=== PATIENT | male | born 1955 | race Caucasian/White ===

== ENCOUNTER 2016-08-08 17:43 | Inpatient (IN) | payer OTHER ==
[~2016-08-08] VITALS: Ht 167.6 cm; Wt 80.0 kg
[~2016-08-08 17:43] MED LIST: ALLO300T PO; ASPI81TA2 PO; CLOP75TA PO; CRESTOR40 MG PO; DICL75TA PO; ESCI10TA PO; EZET10TA3 PO; ISOS30TA4 PO; ISOS60TA PO; KRIL1CAP5 PO; METO25TA4 PO; NITR0.4T6 SL; ONDA-36 PO; PRED50TA PO; RANI150T6 PO; RANI300C PO; UBID200C4 PO
[2016-08-08] MEDS: IV NORMAL SALINE 1000ML BAG 1,000 ML IV SCH ×3 (18:29→21:47)
[2016-08-08] MEDS ORDERED: 0.9 % SODIUM CHLORIDE 10 ML DISP.SYRIN. IV PRN (18:30)
[2016-08-08] MEDS ORDERED: PIPERACILLIN/TAZOBACTAM 3.375 GM in IV NORMAL SALINE 50ML 50 ML IV ONE (18:30)
[2016-08-08] MEDS ORDERED: VANCOMYCIN PER PHARMACY MC PRN (18:30)
[2016-08-08] MEDS ORDERED: VANCOMYCIN 2 GM in IV NORMAL SALINE 500ML BAG 500 ML IV ONE (18:30)
[2016-08-08 18:39] LABS: BASO % 0 % (0-3); EOS % 1 % (0-3); HEMATOCRIT 31.7 % (39.0-53.0); HEMOGLOBIN 10.7 g/dL (13.0-17.5); LYMPH % 11 % (24-48); MEAN CORPUSCULAR HEMOGLOBIN 30 pg (25-35); MEAN CORPUSCULAR HGB CONC 34 g/dL (31-37); MEAN CORPUSCULAR VOLUME 88 fL (79-100); MONO % 59 % (0-9); NEUT % 29 % (31-73); PLATELET COUNT 57 x10^3/uL (140-400); RED BLOOD COUNT 3.59 x10^6/uL (4.30-5.70); RED CELL DISTRIBUTION WIDTH 16.6 % (11.5-14.5)
[2016-08-08 18:46] LABS: WHITE BLOOD COUNT 0.4 x10^3/uL (4.0-11.0)
[2016-08-08 18:51] LABS: CALCIUM 8.5 mg/dL (8.5-10.1); CREATININE 1.2 mg/dL (0.7-1.3); GFR 61.3; POTASSIUM 3.6 mmol/L (3.5-5.1)
[2016-08-08 18:57] LABS: ALBUMIN 2.9 g/dL (3.4-5.0); DIRECT BILIRUBIN 0.3 mg/dL (0.0-0.2); TOTAL BILIRUBIN 0.9 mg/dL (0.2-1.0); TOTAL PROTEIN 6.2 g/dL (6.4-8.2)
--- NOTE | 2016-08-08 19:13 | RAD ---
PROCEDURE CT head without intravenous contrast. HISTORY Weakness emphysema. Fell today with abrasion. TECHNIQUE Axial images are obtained of the head from the skull base through the vertex without IV contrast Exposure: One or more of the following individualized dose reduction techniques were utilized for this examination: 1. Automated exposure control. 2. Adjustment of the mA and/or kV according to patient size. 3. Use of iterative reconstruction technique. COMPARISON CT head May 21, 2016. FINDINGS The ventricles are appropriate in size, shape, and location for the patient's age.No obvious intracranial mass, mass-effect, midline shift, hemorrhage or obvious acute infarction is identified.Basilar cisterns are patent. Bone windows demonstrate no acute calvarial abnormality.There is opacification of several right anterior ethmoid air cells. IMPRESSION 1. No acute intracranial process. Please note that CT can be relatively insensitive to acute ischemic infarction for up to 24 hours after symptom onset. 2. Right ethmoid mucosal disease. Electronically signed by: Dawit Evans MD (Aug 08, 2016 19:12:07)
[2016-08-08] MEDS ORDERED: MORPHINE SULFATE 2 MG/ML DISP.SYRIN. IV PRN (19:15)
[2016-08-08] MEDS ORDERED: ASPIRIN 81 MG TAB.CHEW PO ONE (19:15)
[2016-08-08] MEDS ORDERED: ONDANSETRON PF 4 MG/2 ML VIAL. IV PRN (19:15)
[2016-08-08 20:00] VITALS: BP 122/61
[2016-08-08 20:02] LABS: BILIRUBIN,URINE NEGATIVE (NEG); GLUCOSE,URINE NEGATIVE (NEG); NITRITE,URINE NEGATIVE (NEG); PROTEIN,URINE 100 mg/dL (NEG-TRACE); UROBILINOGEN,URINE 0.2 mg/dL (0.2 mg/dL)
[2016-08-08 20:13] LABS: BACTERIA,URINE FEW /HPF (0-FEW); RBC,URINE OCC /HPF (0-2); WBC,URINE OCC /HPF (0-4)
[2016-08-08 20:50] LABS: % BASOS 1 % (0-3); % EOS 2 % (0-5); PLT ESTIMATE DECREASED (ADEQUATE)
[2016-08-08 20:51] LABS: TOXIC GRANULATION SLIGHT
--- NOTE | 2016-08-08 21:19 | PHYS DOC ---
Past Medical History Past Medical History: CAD, Hypertension, Immunosuppression, Other Additional Past Medical Histor: lymphoma Past Surgical History: Other Additional Past Surgical Histo: left rotater cuff, port right chest for chemo Alcohol Use: Occasionally Drug Use: None Adult General Chief Complaint Chief Complaint: WEAKNESS/GENERALIZED HPI HPI 60-year-old male presenting to the emergency department today with nausea vomiting and generalized weakness with a fever after having chemotherapy approximately 7 days ago. He has mild intermittent abdominal pain that comes and goes. His symptoms started approximately 24 hours ago. His pain is nonradiating without alleviating or exacerbating factors. He denies diarrhea or constipation. Review of Systems Review of Systems Negative for chest pain shortness of breath cough. Negative for polyuria dysuria. He denies any redness or warmth to his Port-A-Cath. All other review of systems is negative unless otherwise noted in history of present illness. Current Medications Current Medications Current Medications Medications (Trade) Dose Ordered Sig/Gloria Start Time Stop Time Status Last Admin Dose Admin Piperacillin Sod/ Tazobactam Sod/ Sodium Chloride (Zosyn/Iv Sodium Chloride 0.9% 50ml) 50 ml @ 100 mls/hr 1X ONCE 08/08/16 18:30 08/08/16 18:59 DC 08/08/16 18:40 100 MLS/HR Sodium Chloride 1,000 ml @ 562.5 mls/ hr Q1H47M 08/08/16 18:30 08/08/16 22:30 08/08/16 18:29 562.5 MLS/HR Sodium Chloride 10 ml 10 ml QSHIFT PRN 08/08/16 18:30 Vancomycin HCl 1 each 1 each PRN DAILY PRN 08/08/16 18:30 08/08/16 19:40 1 EACH Vancomycin HCl/ Sodium Chloride (Iv Sodium Chloride 0.9% 500ml Bag) 500 ml @ 250 mls/hr 1X ONCE 08/08/16 18:30 08/08/16 20:29 DC 08/08/16 19:19 250 MLS/HR Allergies Allergies Allergies Coded Allergies Type Severity Reaction Last Updated Verified No Known Drug Allergies 04/28/16 No Physical Exam Physical Exam Constitutional: Well developed, well nourished, no acute distress. Patient is tachycardic and is generally warm to touch HENT: Normocephalic, atraumatic, bilateral external ears normal, oropharynx moist, no oral exudates, nose normal. [] Eyes: PERRLA, EOMI, conjunctiva normal, no discharge. Neck: Normal range of motion, no tenderness, supple, no stridor. [] Cardiovascular:Heart rate regular rhythm, no murmur . No evidence of infection of the patient's port. Lungs & Thorax: Bilateral breath sounds clear to auscultation Abdomen: Soft nontender abdomen without rebound tenderness or guarding present. Negative McBurneys point. Negative Henry sign. No ecchymosis present. Skin: Warm, dry, no erythema, no rash. Back: No tenderness, no CVA tenderness. Extremities: No tenderness, no cyanosis, no clubbing, ROM intact, no edema. [] Neurologic: Alert and oriented X 3, normal motor function, normal sensory function, no focal deficits noted. Psychologic: Affect normal, judgement normal, mood normal. [] Current Patient Data Vital Signs Vital Signs Date Time Temp Pulse Resp B/P Pulse Ox O2 Delivery O2 Flow Rate FiO2 08/08/16 18:14 100.9 114 14 108/67 90 Room Air 100.9 Lab Values Laboratory Tests Test 08/08/16 18:20 White Blood Count 0.4x10^3/uL (4.0-11.0) *L Red Blood Count 3.59x10^6/uL (4.30-5.70) L Hemoglobin 10.7g/dL (13.0-17.5) L Hematocrit 31.7% (39.0-53.0) L Mean Corpuscular Volume 88fL (79-100) Mean Corpuscular Hemoglobin 30pg (25-35) Mean Corpuscular Hemoglobin Concent 34g/dL (31-37) Red Cell Distribution Width 16.6% (11.5-14.5) H Platelet Count 57x10^3/uL (140-400) L Neutrophils (%) (Auto) 29% (31-73) L Lymphocytes (%) (Auto) 11% (24-48) L Monocytes (%) (Auto) 59% (0-9) H Eosinophils (%) (Auto) 1% (0-3) Basophils (%) (Auto) 0% (0-3) Neutrophils # (Auto) 0.1x10^3uL (1.8-7.7) L Lymphocytes # (Auto) 0.0x10^3/uL (1.0-4.8) L Monocytes # (Auto) 0.2x10^3/uL (0.0-1.1) Eosinophils # (Auto) 0.0x10^3/uL (0.0-0.7) Basophils # (Auto) 0.0x10^3/uL (0.0-0.2) Segmented Neutrophils % 13% (35-66) L Band Neutrophils % 20% (0-9) H Lymphocytes % 13% (24-48) L Monocytes % 51% (0-10) H Eosinophils % 2% (0-5) Basophils % 1% (0-3) Toxic Granulation Slight Dohle Bodies Few Platelet Estimate Decreased (ADEQUATE) Sodium Level 135mmol/L (136-145) L Potassium Level 3.6mmol/L (3.5-5.1) Chloride Level 98mmol/L (98-107) Carbon Dioxide Level 27mmol/L (21-32) Anion Gap 10 (6-14) Blood Urea Nitrogen 13mg/dL (8-26) Creatinine 1.2mg/dL (0.7-1.3) Estimated GFR (Cockcroft-Gault) 61.3 Glucose Level 128mg/dL (70-99) H Lactic Acid Level 1.1mmol/L (0.4-2.0) Calcium Level 8.5mg/dL (8.5-10.1) Total Bilirubin 0.9mg/dL (0.2-1.0) Direct Bilirubin 0.3mg/dL (0.0-0.2) H Aspartate Amino Transferase (AST) 17U/L (15-37) Alanine Aminotransferase (ALT) 32U/L (16-63) Alkaline Phosphatase 39U/L (46-116) L Troponin I Quantitative 0.061ng/mL (0.000-0.055) VJ-Suc-Q-Type Natriuretic Peptide 259pg/mL (0-124) H Total Protein 6.2g/dL (6.4-8.2) L Albumin 2.9g/dL (3.4-5.0) L Lipase 46U/L (73-393) L Laboratory Tests 08/08/16 18:20 Laboratory Tests 08/08/16 18:20 EKG EKG EKG shows sinus rhythm with tachycardia. [place] is leftward. Intervals are within normal limits. ST segments congruent [] Radiology/Procedures Radiology/Procedures CT head negative for acute intracranial bleed. Chest x-ray shows no acute infiltrate. No pneumothorax. Port-A-Cath noted. Cardiomegaly present. [] Course & Med Decision Making Course & Med Decision Making Pertinent Labs and Imaging studies reviewed. (See chart for details) 60-year-old male presenting to our emergency department after receiving chemotherapy and subsequently developing a fever with nausea vomiting and weakness. Vital signs showed fever with tachycardia SPO2 was mildly low at 90. Blood pressure 108 systolic. On physical exam the patient was warm to touch generally. No localizing sign of infection on physical exam. IV access obtained and IV fluids administered along with broad-spectrum antibiotics after blood cultures obtained. Sepsis protocol initiated initially. CBC showed neutropenia with a mild anemia at 10. Urinalysis negative for infection. Chemistry panel showed elevated bilirubin likely secondary to sepsis with a mildly elevated proBNP and troponin just above the reference range of normal. The patient was given an aspirin. Initial lactate was within normal limits. EKG and chest x-ray unremarkable. The patient was then admitted to our hospital for treatment of neutropenic fever, heme oncology consultation, and cardiology consulted for elevation in troponin. Dragon Disclaimer Dragon Disclaimer This electronic medical record was generated, in whole or in part, using a voice recognition dictation system. Departure Departure Impression: Primary Impression: Neutropenia associated with infection Additional Impressions: Sepsis Severe sepsis Elevated troponin Disposition: ADMITTED INPATIENT Admitting Physician: Other (sulaiman) Condition: IMPROVED Referrals: EMPERATRIZ DE DIOS MD (PCP) Problem Qualifiers LENNY BLOOM MD Aug 08, 2016 21:18
[2016-08-08 23:00] VITALS: BP 104/65
[2016-08-09 02:52] VITALS: BP 94/58
[2016-08-09 06:33] LABS: BASO % 1 % (0-3); EOS % 3 % (0-3); HEMATOCRIT 29.5 % (39.0-53.0); HEMOGLOBIN 9.9 g/dL (13.0-17.5); LYMPH # 0.1 x10^3/uL (1.0-4.8); LYMPH % 12 % (24-48); MEAN CORPUSCULAR HEMOGLOBIN 30 pg (25-35); MEAN CORPUSCULAR HGB CONC 34 g/dL (31-37); MEAN CORPUSCULAR VOLUME 89 fL (79-100); MONO % 26 % (0-9); NEUT % 59 % (31-73); PLATELET COUNT 50 x10^3/uL (140-400); RED CELL DISTRIBUTION WIDTH 16.5 % (11.5-14.5)
[2016-08-09 06:37] LABS: GFR 75.7
[2016-08-09 06:44] LABS: WHITE BLOOD COUNT 0.7 x10^3/uL (4.0-11.0)
[2016-08-09 07:00] VITALS: BP 86/49
[2016-08-09] MEDS ORDERED: VANCOMYCIN 1.25 GM in IV NORMAL SALINE 250ML 250 ML IV SCH (08:00)
--- NOTE | 2016-08-09 08:09 | RAD ---
Indication: Short of breath. Fatigue. Technique: Upright portable chest radiograph was obtained. Comparison is from May 14, 2016. Findings: The lungs are clear. The heart is not enlarged. There is no obvious heart failure. Port is noted. Leads overlie the patient. There are degenerative changes in the shoulders. Impression: No acute thoracic findings.
[2016-08-09] MEDS ORDERED: NITROGLYCERIN SUBLINGUAL 0.4 MG BOTTLE OF 25. SL PRN (08:15)
--- NOTE | 2016-08-09 09:28 | PDOC1 ---
History and Physical Date of Admission Date of Admission DATE: 08/08/16 Identification/Chief Complaint Chief Complaint Weakness Source Source: Patient History of Present Illness History of Present Illness Pt says that he had extreme weakness starting this past that did not improve, so decided to come to the ER last night. Pt recently received chemotherapy last . Over the past couple of days he developed fevers and chills. He is having lower abdominal pain and soft stools that are difficult to control. He is concerned about Cdiff as he has had this in the past, and after his last round of chemotherapy was prophylactically treated for it. Past Medical History Cardiovascular: CAD, HTN, PA, Hyperlipidemia Pulmonary: Other GI: Constipation Heme/Onc: Cancer (B cell Lymphoma) Hepatobiliary: No pertinent hx Psych: No pertinent hx Musculoskeletal: Osteoarthritis Rheumatologic: No pertinent hx Infectious disease: Other (C diff) Renal/: UTI Endocrine: No pertinent hx Dermatology: No pertinent hx Past Surgical History Past Surgical History: Arthroscopy, Other (Deviated Septum Repair, Lymph Node Bx, GI Bleed cauterized/clipped) Family History Family History: Cancer, Diabetes, Other (GI Bleed) Social History Smoke: Quit ALCOHOL: occassional Drugs: None Current Problem List Problem List Problems Medical Problems: (1) Elevated troponin Status: Acute (2) Neutropenia associated with infection Status: Acute (3) Sepsis Status: Acute (4) Severe sepsis Status: Acute Problems: Current Medications Current Medications Current Medications Sodium Chloride 10 ml 10 ml QSHIFT PRN IV AFTER MEDS AND BLOOD DRAWS; Start at 18:30 Sodium Chloride 1,000 ml @ 562.5 mls/ hr Q1H47M IV Last administered on at 21:47; Start 08/08/16 at 18:30; Stop 08/08/16 at 22:30; Status DC Piperacillin Sod/ Tazobactam Sod/ Sodium Chloride (Zosyn/Iv Sodium Chloride 0.9 % 50ml) 50 ml @ 100 mls/hr 1X ONCE IV Last administered on 08/08/16at 18:40; Start 08/08/16 at 18:30; Stop 08/08/16 at 18:59; Status DC Vancomycin HCl 1 each 1 each PRN DAILY PRN MC SEE COMMENTS Last administered on 08/08/16at 19:40; Start 08/08/16 at 18:30 Vancomycin HCl/ Sodium Chloride (Iv Sodium Chloride 0.9% 500ml Bag) 500 ml @ 250 mls/hr 1X ONCE IV Last administered on 08/08/16at 19:19; Start 08/08/16 at 18:30; Stop 08/08/16 at 20:29; Status DC Aspirin (Children'S Aspirin) 324 mg 1X ONCE PO Last administered on at 19:43; Start 08/08/16 at 19:15; Stop 08/08/16 at 19:16; Status DC Ondansetron HCl (Zofran) 4 mg PRN Q8HRS PRN IV NAUSEA/VOMITING; Start at 19:15; Stop 08/09/16 at 19:14 Morphine Sulfate 2 mg 2 mg PRN Q2HR PRN IV PAIN Last administered on at 21:29; Start 08/08/16 at 19:15; Stop 08/09/16 at 19:14 Vancomycin HCl/ Sodium Chloride (Iv Sodium Chloride 0.9% 250ml) 250 ml @ 167 mls/hr Q12H IV Last administered on 08/09/16at 08:36; Start 08/09/16 at 08:00 Vancomycin HCl 1 each 1X ONCE MC ; Start 08/10/16 at 07:30; Stop 08/10/16 at 07: 31 Tbo-Filgrastim (Granix) 480 mcg QHS SQ ; Start 08/09/16 at 21:00 Escitalopram Oxalate (Lexapro) 10 mg DAILY PO ; Start 08/09/16 at 09:00 EZETIMIBE (Zetia) 10 mg DAILY PO ; Start 08/09/16 at 09:00 Nitroglycerin (Nitrostat) 0.4 mg PRN Q5MIN PRN SL CHEST PAIN; Start 08/09/16 at 08:15 Atorvastatin Calcium (Lipitor) 20 mg QHS PO ; Start 08/09/16 at 21:00 Active Scripts Active Reported Metoprolol Tartrate 25 Mg Tablet 0.5 Tab PO DAILYBFRSUP Escitalopram Oxalate 10 Mg Tablet 1 Tab PO DAILY Ondansetron Hcl 8 Mg Tablet 8 Mg PO BID PRN Prednisone 50 Mg Tablet 1 Tab PO DAILY Zetia (Ezetimibe) 10 Mg Tablet NITROGLYCERIN SubLingual (Nitroglycerin) 0.4 Mg Tab.subl 0.4 Mg SL PRN Q5MIN PRN Aspirin 81 Mg Tab.chew 81 Mg PO DAILY Isosorbide Mononitrate Er (Isosorbide Mononitrate) 30 Mg Tab.er.24h 30 Mg PO DAILY Crestor (Rosuvastatin Calcium) 40 Mg Tablet 40 Mg PO Allergies Allergies: Coded Allergies: No Known Drug Allergies (Unverified , 04/28/16) ROS General: YES: Chills, Fatigue PSYCHOLOGICAL ROS: No: Anxiety, Depression Eyes: No Decreased vision, No Eye Pain HEENT: No: Nasal congestion, Sore Throat ALLERGY AND IMMUNOLOGY: No: Hives, Post Nasal Drip Hematological and Lymphatic: No: Bleeding Problems, Blood Clots Respiratory: No: Cough, Shortness of breath Cardiovascular: No Chest Pain, No Edema, No Palpitations Gastrointestinal: Yes Abdominal Pain, Yes Diarrhea, Yes Nausea, Yes Vomiting, No Constipation Genitourinary: No Dysuria, No Urgency Musculoskeletal: No Joint Pain, No Joint Swelling Neurological: Yes Weakness, No Impaired Coord/balance, No Numbness/Tingling Skin: No Rash, No Skin Lesion Changes Physical Exam General: Alert, Oriented X3, Cooperative, No acute distress, Other (warm to touch) HEENT: Atraumatic, PERRLA, EOMI, Mucous membr. moist/pink Lungs: Clear to auscultation, Normal air movement Heart: RRR, no rubs, no gallops, no murmurs Abdomen: Normal bowel sounds, Soft, Other (lower abdomen diffusely tender) Extremities: No clubbing, No cyanosis, No edema Skin: No rashes, No breakdown Neuro: Normal speech, Normal tone, Sensation intact, Cranial nerves 3-12 NL Psych/Mental Status: Mental status NL, Mood NL Vitals Vitals Vital Signs Date Time Temp Pulse Resp B/P Pulse Ox O2 Delivery O2 Flow Rate FiO2 08/09/16 07:00 101.3 70 18 86/49 93 Room Air 101.3 08/08/16 20:00 93.0 Labs Labs Laboratory Tests Test 08/08/16 18:20 08/08/16 19:58 08/08/16 20:00 08/09/16 06:00 White Blood Count 0.4x10^3/uL (4.0-11.0) 0.7x10^3/uL (4.0-11.0) Red Blood Count 3.59x10^6/uL (4.30-5.70) 3.30x10^6/uL (4.30-5.70) Hemoglobin 10.7g/dL (13.0-17.5) 9.9g/dL (13.0-17.5) Hematocrit 31.7% (39.0-53.0) 29.5% (39.0-53.0) Mean Corpuscular Volume 88fL (79-100) 89fL (79-100) Mean Corpuscular Hemoglobin 30pg (25-35) 30pg (25-35) Mean Corpuscular Hemoglobin Concent 34g/dL (31-37) 34g/dL (31-37) Red Cell Distribution Width 16.6% (11.5-14.5) 16.5% (11.5-14.5) Platelet Count 57x10^3/uL (140-400) 50x10^3/uL (140-400) Neutrophils (%) (Auto) 29% (31-73) 59% (31-73) Lymphocytes (%) (Auto) 11% (24-48) 12% (24-48) Monocytes (%) (Auto) 59% (0-9) 26% (0-9) Eosinophils (%) (Auto) 1% (0-3) 3% (0-3) Basophils (%) (Auto) 0% (0-3) 1% (0-3) Neutrophils # (Auto) 0.1x10^3uL (1.8-7.7) 0.4x10^3uL (1.8-7.7) Lymphocytes # (Auto) 0.0x10^3/uL (1.0-4.8) 0.1x10^3/uL (1.0-4.8) Monocytes # (Auto) 0.2x10^3/uL (0.0-1.1) 0.2x10^3/uL (0.0-1.1) Eosinophils # (Auto) 0.0x10^3/uL (0.0-0.7) 0.0x10^3/uL (0.0-0.7) Basophils # (Auto) 0.0x10^3/uL (0.0-0.2) 0.0x10^3/uL (0.0-0.2) Segmented Neutrophils % 13% (35-66) Band Neutrophils % 20% (0-9) Lymphocytes % 13% (24-48) Monocytes % 51% (0-10) Eosinophils % 2% (0-5) Basophils % 1% (0-3) Toxic Granulation Slight Dohle Bodies Few Platelet Estimate Decreased (ADEQUATE) Sodium Level 135mmol/L (136-145) 136mmol/L (136-145) Potassium Level 3.6mmol/L (3.5-5.1) 4.0mmol/L (3.5-5.1) Chloride Level 98mmol/L (98-107) 101mmol/L (98-107) Carbon Dioxide Level 27mmol/L (21-32) 27mmol/L (21-32) Anion Gap 10 (6-14) 8 (6-14) Blood Urea Nitrogen 13mg/dL (8-26) 8mg/dL (8-26) Creatinine 1.2mg/dL (0.7-1.3) 1.0mg/dL (0.7-1.3) Estimated GFR (Cockcroft-Gault) 61.3 75.7 Glucose Level 128mg/dL (70-99) 106mg/dL (70-99) Lactic Acid Level 1.1mmol/L (0.4-2.0) 0.9mmol/L (0.4-2.0) Calcium Level 8.5mg/dL (8.5-10.1) 8.0mg/dL (8.5-10.1) Total Bilirubin 0.9mg/dL (0.2-1.0) Direct Bilirubin 0.3mg/dL (0.0-0.2) Aspartate Amino Transf (AST/SGOT) 17U/L (15-37) Alanine Aminotransferase (ALT/SGPT) 32U/L (16-63) Alkaline Phosphatase 39U/L (46-116) Troponin I Quantitative 0.061ng/mL (0.000-0.055) 0.075ng/mL (0.000-0.055) MX-Mrw-E-Type Natriuretic Peptide 259pg/mL (0-124) Total Protein 6.2g/dL (6.4-8.2) Albumin 2.9g/dL (3.4-5.0) Lipase 46U/L (73-393) Urine Color Shanel Urine Clarity Turbid Urine pH 6.0 Urine Specific [place] 1.015 Urine Protein 100mg/dL (NEG-TRACE) Urine Glucose (UA) Negativemg/dL (NEG) Urine Ketones (Stick) 15mg/dL (NEG) Urine Blood Small (NEG) Urine Nitrite Negative (NEG) Urine Bilirubin Negative (NEG) Urine Urobilinogen Dipstick 0.2mg/dL (0.2 mg/dL) Urine Leukocyte Esterase Negative (NEG) Urine RBC Occ/HPF (0-2) Urine WBC Occ/HPF (0-4) Urine Squamous Epithelial Cells None/LPF Urine Bacteria Few/HPF (0-FEW) Urine Mucus Mod/LPF Test 08/09/16 06:45 Troponin I Quantitative 0.072ng/mL (0.000-0.055) Laboratory Tests Test 08/08/16 18:20 08/08/16 19:58 08/08/16 20:00 08/09/16 06:00 White Blood Count 0.4x10^3/uL (4.0-11.0) 0.7x10^3/uL (4.0-11.0) Red Blood Count 3.59x10^6/uL (4.30-5.70) 3.30x10^6/uL (4.30-5.70) Hemoglobin 10.7g/dL (13.0-17.5) 9.9g/dL (13.0-17.5) Hematocrit 31.7% (39.0-53.0) 29.5% (39.0-53.0) Mean Corpuscular Volume 88fL (79-100) 89fL (79-100) Mean Corpuscular Hemoglobin 30pg (25-35) 30pg (25-35) Mean Corpuscular Hemoglobin Concent 34g/dL (31-37) 34g/dL (31-37) Red Cell Distribution Width 16.6% (11.5-14.5) 16.5% (11.5-14.5) Platelet Count 57x10^3/uL (140-400) 50x10^3/uL (140-400) Neutrophils (%) (Auto) 29% (31-73) 59% (31-73) Lymphocytes (%) (Auto) 11% (24-48) 12% (24-48) Monocytes (%) (Auto) 59% (0-9) 26% (0-9) Eosinophils (%) (Auto) 1% (0-3) 3% (0-3) Basophils (%) (Auto) 0% (0-3) 1% (0-3) Neutrophils # (Auto) 0.1x10^3uL (1.8-7.7) 0.4x10^3uL (1.8-7.7) Lymphocytes # (Auto) 0.0x10^3/uL (1.0-4.8) 0.1x10^3/uL (1.0-4.8) Monocytes # (Auto) 0.2x10^3/uL (0.0-1.1) 0.2x10^3/uL (0.0-1.1) Eosinophils # (Auto) 0.0x10^3/uL (0.0-0.7) 0.0x10^3/uL (0.0-0.7) Basophils # (Auto) 0.0x10^3/uL (0.0-0.2) 0.0x10^3/uL (0.0-0.2) Segmented Neutrophils % 13% (35-66) Band Neutrophils % 20% (0-9) Lymphocytes % 13% (24-48) Monocytes % 51% (0-10) Eosinophils % 2% (0-5) Basophils % 1% (0-3) Toxic Granulation Slight Dohle Bodies Few Platelet Estimate Decreased (ADEQUATE) Sodium Level 135mmol/L (136-145) 136mmol/L (136-145) Potassium Level 3.6mmol/L (3.5-5.1) 4.0mmol/L (3.5-5.1) Chloride Level 98mmol/L (98-107) 101mmol/L (98-107) Carbon Dioxide Level 27mmol/L (21-32) 27mmol/L (21-32) Anion Gap 10 (6-14) 8 (6-14) Blood Urea Nitrogen 13mg/dL (8-26) 8mg/dL (8-26) Creatinine 1.2mg/dL (0.7-1.3) 1.0mg/dL (0.7-1.3) Estimated GFR (Cockcroft-Gault) 61.3 75.7 Glucose Level 128mg/dL (70-99) 106mg/dL (70-99) Lactic Acid Level 1.1mmol/L (0.4-2.0) 0.9mmol/L (0.4-2.0) Calcium Level 8.5mg/dL (8.5-10.1) 8.0mg/dL (8.5-10.1) Total Bilirubin 0.9mg/dL (0.2-1.0) Direct Bilirubin 0.3mg/dL (0.0-0.2) Aspartate Amino Transf (AST/SGOT) 17U/L (15-37) Alanine Aminotransferase (ALT/SGPT) 32U/L (16-63) Alkaline Phosphatase 39U/L (46-116) Troponin I Quantitative 0.061ng/mL (0.000-0.055) 0.075ng/mL (0.000-0.055) HF-Mis-D-Type Natriuretic Peptide 259pg/mL (0-124) Total Protein 6.2g/dL (6.4-8.2) Albumin 2.9g/dL (3.4-5.0) Lipase 46U/L (73-393) Urine Color Shaenl Urine Clarity Turbid Urine pH 6.0 Urine Specific [place] 1.015 Urine Protein 100mg/dL (NEG-TRACE) Urine Glucose (UA) Negativemg/dL (NEG) Urine Ketones (Stick) 15mg/dL (NEG) Urine Blood Small (NEG) Urine Nitrite Negative (NEG) Urine Bilirubin Negative (NEG) Urine Urobilinogen Dipstick 0.2mg/dL (0.2 mg/dL) Urine Leukocyte Esterase Negative (NEG) Urine RBC Occ/HPF (0-2) Urine WBC Occ/HPF (0-4) Urine Squamous Epithelial Cells None/LPF Urine Bacteria Few/HPF (0-FEW) Urine Mucus Mod/LPF Test 08/09/16 06:45 Troponin I Quantitative 0.072ng/mL (0.000-0.055) VTE Prophylaxis Ordered VTE Prophylaxis Devices: Yes VTE Pharmacological Prophylaxi: No Assessment/Plan Assessment/Plan Pt is a 60yo CM admitted for sepsis and neutropenic fever 1)Sepsis- pt's blood pressure currently stable after receiving IVF hydration. Will continue to monitor and have low threshold to send to ICU if needed. Pt has neutropenic fever and was given Vancomycin and Zosyn in the ER. CXR WNL. Pt's U/A equivocal, urine culture pending. Blood cultures pending. Pt having symptoms of possible C-diff, stool studies pending. Will continue pt's Zosyn and start Metronidazole. Will broaden antibiotics if needed. 2)Neutropenic Fever- see above. Heme/Onc consulted this morning 3)Hx CAD- Initial tropinin elevated, trending downward. Holding Imdur 2/2 hypotension. CTM 4)HTN- pt currently hypotensive. Holding Imdur and Metoprolol 5)Pancytopenia- 2/2 recent chemotherapy. CTM. No active bleeding or oozing. Pt started on Granix 6)Depression- pt continued on Escitalopram 10mg 7)HLD- pt transitioned to Atorvastatin during hospitalization, normally on Rosuvastatin 40mg TOLU SHEIKH MD Aug 09, 2016 09:28
--- NOTE | 2016-08-09 09:46 | EKG ---
[facility] [address] [place] [address] Test Date: 2016-08-09 Test Time: 09:38:48 Pat Name: BELKIS MCCLENDON Department: Room: 2 Gender: M Steel Cutter: : 1955 Requested By: NAVEEN AKHTAR Order Number: [id number] Reading MD: Measurements Intervals [place] Rate: 91 P: 52 VT: 102 QRS: -4 QRSD: 76 T: 0 QT: 352 QTc: 435 Interpretive Statements SINUS RHYTHM LEFTWARD AXIS QRS(T) CONTOUR ABNORMALITY CONSISTENT WITH INFERIOR INFARCT PROBABLY OLD ABNORMAL ECG RI6.01 Compared to ECG 05/21/2016 03:55:49 No significant changes
[2016-08-09] MEDS ORDERED: PIPERACILLIN/TAZOBACTAM 3.375 GM in IV NORMAL SALINE 50ML 50 ML IV SCH (10:00)
[2016-08-09] MEDS ORDERED: METRONIDAZOLE 500 MG TABLET. PO SCH (10:00)
[2016-08-09] MEDS: ESCITALOPRAM 10 MG TABLET. PO SCH (10:05)
[2016-08-09] MEDS: EZETIMIBE 10 MG TABLET PO SCH (10:05)
[2016-08-09] MEDS ORDERED: PIP/TAZO PER PHARMACY MC PRN (10:15)
--- NOTE | 2016-08-09 10:24 | PDOC ---
Provider Note Provider Note Onc consult dictated- [id number] DLBCL s/p C4 RCHOP 07/31- PEt 07/15 with impressive response to tx so far Neutropenic fevers- Continue zosyn, granix until ANC rising and near 1.5 Loose stool- Checking C diff Thank you. FRANCO SHEIKH DO Aug 09, 2016 10:24
--- NOTE | 2016-08-09 10:37 | EKG ---
[facility] [address] [place] [address] Test Date: 2016-08-08 Test Time: 18:42:38 Pat Name: BELKIS MCCLENDON Department: Room: Gender: M Provider Relations Specialist: : 1955 Requested By: LENNY BLOOM Order Number: [id number] Reading MD: Measurements Intervals [facility] Rate: 104 P: -42 [place]: 92 QRS: -5 QRSD: 78 T: 35 QT: 310 QTc: 413 Interpretive Statements SINUS TACHYCARDIA LEFTWARD AXIS QRS(T) CONTOUR ABNORMALITY CONSISTENT WITH INFERIOR INFARCT PROBABLY OLD ABNORMAL ECG RI6.01 No previous ECG available for comparison
[2016-08-09 10:41] VITALS: BP 108/66
[2016-08-09] MEDS: PIPERACILLIN/TAZOBACTAM 3.375 GM in IV NORMAL SALINE 50ML 50 ML IV SCH ×3 (11:26→23:52)
[2016-08-09] MEDS: HYDROCODONE/APAP 5/325MG TABLET. PO PRN ×3 (11:33→23:52)
--- NOTE | 2016-08-09 13:01 | PDOC2 ---
CONSULT Date of Consult Date of Consult DATE: 08/09/16 TIME: 12:54 Reason for Consult Reason for Consult: elevated troponin, history of CAD Referring Physician Referring Physician: Dr. Stahl Identification/Chief Complaint Chief Complaint Weakness, nausea Source Source: Patient History of Present Illness Reason for Visit: The patient is a pleasant 60-year-old male who was admitted for progressive weakness, nausea and vomiting. The patient is treated with chemotherapy for an HL and his last treatment was on . He's been started on antibiotics and states she is feeling somewhat better this morning. From a cardiac viewpoint he has a history of coronary artery disease. His troponin is minimally elevated at 0.075. His EKG shows no ischemic changes. He denies chest pain or shortness of breath. Past Medical History Cardiovascular: CAD, HTN, [place], Hyperlipidemia Pulmonary: Other GI: Constipation Heme/Onc: Cancer (B cell Lymphoma) Hepatobiliary: No pertinent hx Psych: No pertinent hx Musculoskeletal: Osteoarthritis Rheumatologic: No pertinent hx Infectious disease: Other (C diff) Renal/: UTI Endocrine: No pertinent hx Dermatology: No pertinent hx Past Surgical History Past Surgical History: Arthroscopy, Other (Port-A-Cath for chemotherapy.) Family History Family History: Cancer, Diabetes, Other (GI Bleed) Social History Quit ALCOHOL: occassional Drugs: None Lives: with Family Current Problem List Problem List Problems Medical Problems: (1) Elevated troponin Status: Acute (2) Neutropenia associated with infection Status: Acute (3) Sepsis Status: Acute (4) Severe sepsis Status: Acute Current Medications Current Medications Current Medications Sodium Chloride 10 ml 10 ml QSHIFT PRN IV AFTER MEDS AND BLOOD DRAWS; Start at 18:30 Sodium Chloride 1,000 ml @ 562.5 mls/ hr Q1H47M IV Last administered on at 21:47; Start 08/08/16 at 18:30; Stop 08/08/16 at 22:30; Status DC Piperacillin Sod/ Tazobactam Sod/ Sodium Chloride (Zosyn/Iv Sodium Chloride 0.9 % 50ml) 50 ml @ 100 mls/hr 1X ONCE IV Last administered on 08/08/16at 18:40; Start 08/08/16 at 18:30; Stop 08/08/16 at 18:59; Status DC Vancomycin HCl 1 each 1 each PRN DAILY PRN MC SEE COMMENTS Last administered on 08/08/16at 19:40; Start 08/08/16 at 18:30; Stop 08/09/16 at 09:14; Status DC Vancomycin HCl/ Sodium Chloride (Iv Sodium Chloride 0.9% 500ml Bag) 500 ml @ 250 mls/hr 1X ONCE IV Last administered on 08/08/16at 19:19; Start 08/08/16 at 18:30; Stop 08/08/16 at 20:29; Status DC Aspirin (Children'S Aspirin) 324 mg 1X ONCE PO Last administered on at 19:43; Start 08/08/16 at 19:15; Stop 08/08/16 at 19:16; Status DC Ondansetron HCl (Zofran) 4 mg PRN Q8HRS PRN IV NAUSEA/VOMITING; Start at 19:15; Stop 08/09/16 at 19:14 Morphine Sulfate 2 mg 2 mg PRN Q2HR PRN IV PAIN Last administered on at 21:29; Start 08/08/16 at 19:15; Stop 08/09/16 at 19:14 Vancomycin HCl/ Sodium Chloride (Iv Sodium Chloride 0.9% 250ml) 250 ml @ 167 mls/hr Q12H IV Last administered on 08/09/16at 08:36; Start 08/09/16 at 08:00 ; Stop 08/09/16 at 09:14; Status DC Vancomycin HCl 1 each 1X ONCE MC ; Start 08/10/16 at 07:30; Stop 08/10/16 at 07: 30; Status DC Tbo-Filgrastim (Granix) 480 mcg QHS SQ ; Start 08/09/16 at 21:00 Escitalopram Oxalate (Lexapro) 10 mg DAILY PO Last administered on 08/09/16at 10:05; Start 08/09/16 at 09:00 EZETIMIBE (Zetia) 10 mg DAILY PO Last administered on 08/09/16at 10:05; Start 08/09/16 at 09:00 Nitroglycerin (Nitrostat) 0.4 mg PRN Q5MIN PRN SL CHEST PAIN; Start 08/09/16 at 08:15 Atorvastatin Calcium (Lipitor) 20 mg QHS PO ; Start 08/09/16 at 21:00 Metronidazole 500 mg 500 mg Q8HRS PO Last administered on 08/09/16at 10:05; Start 08/09/16 at 10:00; Stop 08/09/16 at 11:59; Status DC Piperacillin Sod/ Tazobactam Sod/ Sodium Chloride (Zosyn/Iv Sodium Chloride 0.9 % 50ml) 50 ml @ 100 mls/hr Q6HRS IV Last administered on 08/09/16at 10:04; Start 08/09/16 at 10:00; Stop 08/09/16 at 10:17; Status DC Piperacillin Sod/ Tazobactam Sod 1 each 1 each PRN DAILY PRN MC SEE COMMENTS; Start 08/09/16 at 10:15 Piperacillin Sod/ Tazobactam Sod/ Sodium Chloride (Zosyn/Iv Sodium Chloride 0.9 % 50ml) 50 ml @ 100 mls/hr Q6HRS IV ; Start 08/09/16 at 12:00 Acetaminophen/ Hydrocodone Bitart (Lortab 5/325) 1 tab PRN Q6HRS PRN PO PAIN MILD TO MOD Last administered on 08/09/16at 11:33; Start 08/09/16 at 10:45 Vancomycin HCl 125 mg [id number] PO ; Start 08/09/16 at 13:00 Active Scripts Active Reported Metoprolol Tartrate 25 Mg Tablet 0.5 Tab PO DAILYBFRSUP Escitalopram Oxalate 10 Mg Tablet 1 Tab PO DAILY Ondansetron Hcl 8 Mg Tablet 8 Mg PO BID PRN Prednisone 50 Mg Tablet 1 Tab PO DAILY Zetia (Ezetimibe) 10 Mg Tablet NITROGLYCERIN SubLingual (Nitroglycerin) 0.4 Mg Tab.subl 0.4 Mg SL PRN Q5MIN PRN Aspirin 81 Mg Tab.chew 81 Mg PO DAILY Isosorbide Mononitrate Er (Isosorbide Mononitrate) 30 Mg Tab.er.24h 30 Mg PO DAILY Crestor (Rosuvastatin Calcium) 40 Mg Tablet 40 Mg PO Allergies Allergies: Coded Allergies: No Known Drug Allergies (Unverified , 04/28/16) ROS General: YES: Chills, Fatigue Gastrointestinal: Yes Abdominal Pain, Yes Nausea, Yes Vomiting Physical Exam General: mild distress HEENT: Atraumatic Lungs: Clear to auscultation Heart: Regular rate Abdomen: Normal bowel sounds Vitals VITALS Vital Signs Date Time Temp Pulse Resp B/P Pulse Ox O2 Delivery O2 Flow Rate FiO2 08/09/16 10:41 100.2 74 18 108/66 95 Room Air 100.2 08/08/16 20:00 93.0 Labs Labs Laboratory Tests Test 08/08/16 18:20 08/08/16 19:58 08/08/16 20:00 08/09/16 06:00 White Blood Count 0.4x10^3/uL (4.0-11.0) 0.7x10^3/uL (4.0-11.0) Red Blood Count 3.59x10^6/uL (4.30-5.70) 3.30x10^6/uL (4.30-5.70) Hemoglobin 10.7g/dL (13.0-17.5) 9.9g/dL (13.0-17.5) Hematocrit 31.7% (39.0-53.0) 29.5% (39.0-53.0) Mean Corpuscular Volume 88fL (79-100) 89fL (79-100) Mean Corpuscular Hemoglobin 30pg (25-35) 30pg (25-35) Mean Corpuscular Hemoglobin Concent 34g/dL (31-37) 34g/dL (31-37) Red Cell Distribution Width 16.6% (11.5-14.5) 16.5% (11.5-14.5) Platelet Count 57x10^3/uL (140-400) 50x10^3/uL (140-400) Neutrophils (%) (Auto) 29% (31-73) 59% (31-73) Lymphocytes (%) (Auto) 11% (24-48) 12% (24-48) Monocytes (%) (Auto) 59% (0-9) 26% (0-9) Eosinophils (%) (Auto) 1% (0-3) 3% (0-3) Basophils (%) (Auto) 0% (0-3) 1% (0-3) Neutrophils # (Auto) 0.1x10^3uL (1.8-7.7) 0.4x10^3uL (1.8-7.7) Lymphocytes # (Auto) 0.0x10^3/uL (1.0-4.8) 0.1x10^3/uL (1.0-4.8) Monocytes # (Auto) 0.2x10^3/uL (0.0-1.1) 0.2x10^3/uL (0.0-1.1) Eosinophils # (Auto) 0.0x10^3/uL (0.0-0.7) 0.0x10^3/uL (0.0-0.7) Basophils # (Auto) 0.0x10^3/uL (0.0-0.2) 0.0x10^3/uL (0.0-0.2) Segmented Neutrophils % 13% (35-66) Band Neutrophils % 20% (0-9) Lymphocytes % 13% (24-48) Monocytes % 51% (0-10) Eosinophils % 2% (0-5) Basophils % 1% (0-3) Toxic Granulation Slight Dohle Bodies Few Platelet Estimate Decreased (ADEQUATE) Sodium Level 135mmol/L (136-145) 136mmol/L (136-145) Potassium Level 3.6mmol/L (3.5-5.1) 4.0mmol/L (3.5-5.1) Chloride Level 98mmol/L (98-107) 101mmol/L (98-107) Carbon Dioxide Level 27mmol/L (21-32) 27mmol/L (21-32) Anion Gap 10 (6-14) 8 (6-14) Blood Urea Nitrogen 13mg/dL (8-26) 8mg/dL (8-26) Creatinine 1.2mg/dL (0.7-1.3) 1.0mg/dL (0.7-1.3) Estimated GFR (Cockcroft-Gault) 61.3 75.7 Glucose Level 128mg/dL (70-99) 106mg/dL (70-99) Lactic Acid Level 1.1mmol/L (0.4-2.0) 0.9mmol/L (0.4-2.0) Calcium Level 8.5mg/dL (8.5-10.1) 8.0mg/dL (8.5-10.1) Total Bilirubin 0.9mg/dL (0.2-1.0) Direct Bilirubin 0.3mg/dL (0.0-0.2) Aspartate Amino Transf (AST/SGOT) 17U/L (15-37) Alanine Aminotransferase (ALT/SGPT) 32U/L (16-63) Alkaline Phosphatase 39U/L (46-116) Troponin I Quantitative 0.061ng/mL (0.000-0.055) 0.075ng/mL (0.000-0.055) XD-Hyx-B-Type Natriuretic Peptide 259pg/mL (0-124) Total Protein 6.2g/dL (6.4-8.2) Albumin 2.9g/dL (3.4-5.0) Lipase 46U/L (73-393) Urine Color Shanel Urine Clarity Turbid Urine pH 6.0 Urine Specific [place] 1.015 Urine Protein 100mg/dL (NEG-TRACE) Urine Glucose (UA) Negativemg/dL (NEG) Urine Ketones (Stick) 15mg/dL (NEG) Urine Blood Small (NEG) Urine Nitrite Negative (NEG) Urine Bilirubin Negative (NEG) Urine Urobilinogen Dipstick 0.2mg/dL (0.2 mg/dL) Urine Leukocyte Esterase Negative (NEG) Urine RBC Occ/HPF (0-2) Urine WBC Occ/HPF (0-4) Urine Squamous Epithelial Cells None/LPF Urine Bacteria Few/HPF (0-FEW) Urine Mucus Mod/LPF Test 08/09/16 06:45 Troponin I Quantitative 0.072ng/mL (0.000-0.055) Laboratory Tests Test 08/08/16 18:20 08/08/16 19:58 08/08/16 20:00 08/09/16 06:00 White Blood Count 0.4x10^3/uL (4.0-11.0) 0.7x10^3/uL (4.0-11.0) Red Blood Count 3.59x10^6/uL (4.30-5.70) 3.30x10^6/uL (4.30-5.70) Hemoglobin 10.7g/dL (13.0-17.5) 9.9g/dL (13.0-17.5) Hematocrit 31.7% (39.0-53.0) 29.5% (39.0-53.0) Mean Corpuscular Volume 88fL (79-100) 89fL (79-100) Mean Corpuscular Hemoglobin 30pg (25-35) 30pg (25-35) Mean Corpuscular Hemoglobin Concent 34g/dL (31-37) 34g/dL (31-37) Red Cell Distribution Width 16.6% (11.5-14.5) 16.5% (11.5-14.5) Platelet Count 57x10^3/uL (140-400) 50x10^3/uL (140-400) Neutrophils (%) (Auto) 29% (31-73) 59% (31-73) Lymphocytes (%) (Auto) 11% (24-48) 12% (24-48) Monocytes (%) (Auto) 59% (0-9) 26% (0-9) Eosinophils (%) (Auto) 1% (0-3) 3% (0-3) Basophils (%) (Auto) 0% (0-3) 1% (0-3) Neutrophils # (Auto) 0.1x10^3uL (1.8-7.7) 0.4x10^3uL (1.8-7.7) Lymphocytes # (Auto) 0.0x10^3/uL (1.0-4.8) 0.1x10^3/uL (1.0-4.8) Monocytes # (Auto) 0.2x10^3/uL (0.0-1.1) 0.2x10^3/uL (0.0-1.1) Eosinophils # (Auto) 0.0x10^3/uL (0.0-0.7) 0.0x10^3/uL (0.0-0.7) Basophils # (Auto) 0.0x10^3/uL (0.0-0.2) 0.0x10^3/uL (0.0-0.2) Segmented Neutrophils % 13% (35-66) Band Neutrophils % 20% (0-9) Lymphocytes % 13% (24-48) Monocytes % 51% (0-10) Eosinophils % 2% (0-5) Basophils % 1% (0-3) Toxic Granulation Slight Dohle Bodies Few Platelet Estimate Decreased (ADEQUATE) Sodium Level 135mmol/L (136-145) 136mmol/L (136-145) Potassium Level 3.6mmol/L (3.5-5.1) 4.0mmol/L (3.5-5.1) Chloride Level 98mmol/L (98-107) 101mmol/L (98-107) Carbon Dioxide Level 27mmol/L (21-32) 27mmol/L (21-32) Anion Gap 10 (6-14) 8 (6-14) Blood Urea Nitrogen 13mg/dL (8-26) 8mg/dL (8-26) Creatinine 1.2mg/dL (0.7-1.3) 1.0mg/dL (0.7-1.3) Estimated GFR (Cockcroft-Gault) 61.3 75.7 Glucose Level 128mg/dL (70-99) 106mg/dL (70-99) Lactic Acid Level 1.1mmol/L (0.4-2.0) 0.9mmol/L (0.4-2.0) Calcium Level 8.5mg/dL (8.5-10.1) 8.0mg/dL (8.5-10.1) Total Bilirubin 0.9mg/dL (0.2-1.0) Direct Bilirubin 0.3mg/dL (0.0-0.2) Aspartate Amino Transf (AST/SGOT) 17U/L (15-37) Alanine Aminotransferase (ALT/SGPT) 32U/L (16-63) Alkaline Phosphatase 39U/L (46-116) Troponin I Quantitative 0.061ng/mL (0.000-0.055) 0.075ng/mL (0.000-0.055) EY-Hqb-T-Type Natriuretic Peptide 259pg/mL (0-124) Total Protein 6.2g/dL (6.4-8.2) Albumin 2.9g/dL (3.4-5.0) Lipase 46U/L (73-393) Urine Color Shanel Urine Clarity Turbid Urine pH 6.0 Urine Specific [place] 1.015 Urine Protein 100mg/dL (NEG-TRACE) Urine Glucose (UA) Negativemg/dL (NEG) Urine Ketones (Stick) 15mg/dL (NEG) Urine Blood Small (NEG) Urine Nitrite Negative (NEG) Urine Bilirubin Negative (NEG) Urine Urobilinogen Dipstick 0.2mg/dL (0.2 mg/dL) Urine Leukocyte Esterase Negative (NEG) Urine RBC Occ/HPF (0-2) Urine WBC Occ/HPF (0-4) Urine Squamous Epithelial Cells None/LPF Urine Bacteria Few/HPF (0-FEW) Urine Mucus Mod/LPF Test 08/09/16 06:45 Troponin I Quantitative 0.072ng/mL (0.000-0.055) Assessment/Plan Assessment/Plan 1. Probable sepsis with the patient being treated with chemotherapy for NHL. Antibiotics have been started as per the ID service. Oncology evaluation pending. 2. Neutropenia with fever. Antibiotics and oncology evaluation as above. 3. History of coronary artery disease. No chest pain reported. No ischemic EKG changes. Minimally elevated troponin at 0.075 probably secondary to the patient' s sepsis. We'll continue to monitor and recheck lab in the morning. 4. Hypertension. Adjusting medications due to the patient's mild hypotension today. 5. Hyperlipidemia. We'll check a lipid panel in the morning. Thank you for allowing us to participate in the care of your pleasant patient. NAVEEN AKHTAR MD Aug 09, 2016 13:01
--- NOTE | 2016-08-09 13:01 | PDOC ---
Infectious Disease Note Vital Sign Vital Signs Vital Signs Date Time Temp Pulse Resp B/P Pulse Ox O2 Delivery O2 Flow Rate FiO2 08/09/16 10:41 100.2 74 18 108/66 95 Room Air 100.2 08/08/16 20:00 93.0 Labs Lab Laboratory Tests Test 08/08/16 18:20 08/08/16 19:58 08/08/16 20:00 08/09/16 06:00 White Blood Count 0.4x10^3/uL (4.0-11.0) 0.7x10^3/uL (4.0-11.0) Red Blood Count 3.59x10^6/uL (4.30-5.70) 3.30x10^6/uL (4.30-5.70) Hemoglobin 10.7g/dL (13.0-17.5) 9.9g/dL (13.0-17.5) Hematocrit 31.7% (39.0-53.0) 29.5% (39.0-53.0) Mean Corpuscular Volume 88fL (79-100) 89fL (79-100) Mean Corpuscular Hemoglobin 30pg (25-35) 30pg (25-35) Mean Corpuscular Hemoglobin Concent 34g/dL (31-37) 34g/dL (31-37) Red Cell Distribution Width 16.6% (11.5-14.5) 16.5% (11.5-14.5) Platelet Count 57x10^3/uL (140-400) 50x10^3/uL (140-400) Neutrophils (%) (Auto) 29% (31-73) 59% (31-73) Lymphocytes (%) (Auto) 11% (24-48) 12% (24-48) Monocytes (%) (Auto) 59% (0-9) 26% (0-9) Eosinophils (%) (Auto) 1% (0-3) 3% (0-3) Basophils (%) (Auto) 0% (0-3) 1% (0-3) Neutrophils # (Auto) 0.1x10^3uL (1.8-7.7) 0.4x10^3uL (1.8-7.7) Lymphocytes # (Auto) 0.0x10^3/uL (1.0-4.8) 0.1x10^3/uL (1.0-4.8) Monocytes # (Auto) 0.2x10^3/uL (0.0-1.1) 0.2x10^3/uL (0.0-1.1) Eosinophils # (Auto) 0.0x10^3/uL (0.0-0.7) 0.0x10^3/uL (0.0-0.7) Basophils # (Auto) 0.0x10^3/uL (0.0-0.2) 0.0x10^3/uL (0.0-0.2) Segmented Neutrophils % 13% (35-66) Band Neutrophils % 20% (0-9) Lymphocytes % 13% (24-48) Monocytes % 51% (0-10) Eosinophils % 2% (0-5) Basophils % 1% (0-3) Toxic Granulation Slight Dohle Bodies Few Platelet Estimate Decreased (ADEQUATE) Sodium Level 135mmol/L (136-145) 136mmol/L (136-145) Potassium Level 3.6mmol/L (3.5-5.1) 4.0mmol/L (3.5-5.1) Chloride Level 98mmol/L (98-107) 101mmol/L (98-107) Carbon Dioxide Level 27mmol/L (21-32) 27mmol/L (21-32) Anion Gap 10 (6-14) 8 (6-14) Blood Urea Nitrogen 13mg/dL (8-26) 8mg/dL (8-26) Creatinine 1.2mg/dL (0.7-1.3) 1.0mg/dL (0.7-1.3) Estimated GFR (Cockcroft-Gault) 61.3 75.7 Glucose Level 128mg/dL (70-99) 106mg/dL (70-99) Lactic Acid Level 1.1mmol/L (0.4-2.0) 0.9mmol/L (0.4-2.0) Calcium Level 8.5mg/dL (8.5-10.1) 8.0mg/dL (8.5-10.1) Total Bilirubin 0.9mg/dL (0.2-1.0) Direct Bilirubin 0.3mg/dL (0.0-0.2) Aspartate Amino Transf (AST/SGOT) 17U/L (15-37) Alanine Aminotransferase (ALT/SGPT) 32U/L (16-63) Alkaline Phosphatase 39U/L (46-116) Troponin I Quantitative 0.061ng/mL (0.000-0.055) 0.075ng/mL (0.000-0.055) DK-Enb-K-Type Natriuretic Peptide 259pg/mL (0-124) Total Protein 6.2g/dL (6.4-8.2) Albumin 2.9g/dL (3.4-5.0) Lipase 46U/L (73-393) Urine Color Shanel Urine Clarity Turbid Urine pH 6.0 Urine Specific [place] 1.015 Urine Protein 100mg/dL (NEG-TRACE) Urine Glucose (UA) Negativemg/dL (NEG) Urine Ketones (Stick) 15mg/dL (NEG) Urine Blood Small (NEG) Urine Nitrite Negative (NEG) Urine Bilirubin Negative (NEG) Urine Urobilinogen Dipstick 0.2mg/dL (0.2 mg/dL) Urine Leukocyte Esterase Negative (NEG) Urine RBC Occ/HPF (0-2) Urine WBC Occ/HPF (0-4) Urine Squamous Epithelial Cells None/LPF Urine Bacteria Few/HPF (0-FEW) Urine Mucus Mod/LPF Test 08/09/16 06:45 Troponin I Quantitative 0.072ng/mL (0.000-0.055) Micro BLOOD CULTURE Final GRAM NEGATIVE RODS, IN 1 OF 5 BOTTLES, THREE SETS DRAWN. Objective Assessment GNR sepsis with hypotension. POA 08/08 Abd pain Neutropenic Fever Diarrhea. recent h/o C. diff NHL undergoing chemo -Last TX 07/31. -Port placement Apr 28. Pancytopenia h/o GI bleed s/p cauterization and clipping CAD Plan Plan of Care Change Flagyl to po vanc and continue Zosyn One time dose vanc in ER. 08/08 Await GNR ID/sensitivities C. diff pending Monitor WBC, Cr and temp Bedside commode On Granix CT scan abd/pelvis r/o colitis/typhlitis source of GNR D/w Thank you Attending Co-Sign Attending Co-Sign The patient was seen and interviewed as well as examined at the bedside. The chart was reviewed. The case was discussed. Agree with the plan of care. AMAYA DAI APRN Aug 09, 2016 11:57 LEÓN DELCID MD Aug 09, 2016 13:01
[2016-08-09] MEDS ORDERED: IOHEXOL 240 MG/ML 50ML VIAL. PO ONE (13:30)
[2016-08-09] MEDS ORDERED: IOHEXOL 300 MG/ML 100ML VIAL. IV ONE (13:30)
[2016-08-09] MEDS ORDERED: CONTRAST GIVEN MC PRN (13:30)
[2016-08-09] MEDS: VANCOMYCIN 125 MG/2.5 ML ORAL SOLUTION. PO SCH ×3 (13:50→21:37)
[2016-08-09 15:20] VITALS: BP 95/58
[2016-08-09 19:00] VITALS: BP 98/53
[2016-08-09] MEDS: ATORVASTATIN CALCIUM 20 MG TABLET PO SCH (21:37)
[2016-08-09] MEDS: TBO-FILGRASTIM 480 MCG/0.8 ML SYRINGE. SQ SCH (21:51)
[2016-08-09 22:59] VITALS: BP 94/64
--- NOTE | 2016-08-10 00:42 | CONS ---
DATE OF CONSULTATION: 08/09/2016 REFERRING PROVIDER: Dr. Edith Mukherjee. REASON FOR CONSULTATION: Diffuse large B cell lymphoma. 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 He has had complications with previous chemotherapy cycles with neutropenic fever and prolonged ileus following his first cycle and a GI bleed from ulcers in his jejunum following the 2nd cycle. He has been placed on prophylactic Levaquin during days 5-12 of each treatment cycle when his counts are expected to be low. He did have his blood counts checked earlier this week in our office and they were fine then. However, overnight, he began having a fever, chills and diarrhea. His counts when he was admitted show a white blood cell count of 0.4, ANC 0.1, hemoglobin 10.7, platelets 57. PAST MEDICAL HISTORY: Heart disease, status post MN, hypertension, hyperlipidemia, diffuse large B cell lymphoma/follicular lymphoma, osteoarthritis and recent C. diff. PAST SURGICAL HISTORY: Endoscopies with clipping as above. FAMILY HISTORY: Mom had hypertension and diabetes. Dad had heart disease, hypertension. Brother stroke. SOCIAL HISTORY: He previously smoked 1.5 packs a day for 20 years, but quit in the . He drinks a few beers a week. He is . ALLERGIES: No known drug allergies. CURRENT MEDICATIONS: Lipitor, Lexapro, Zetia, Flagyl, morphine, Zosyn, normal saline. REVIEW OF SYSTEMS: Ten point review of systems completed and unremarkable with the exception of the fatigue, fevers at home, abdominal tenderness and diarrhea. PHYSICAL EXAMINATION: VITAL SIGNS: Temperature 101.3, pulse 70, respiratory rate 18, blood pressure 86/49, 93% O2 on room air. GENERAL: He is alert and oriented. He does not appear to be in any distress, nontoxic at this time. HEENT: Extraocular muscle strength is intact. Mucous membranes are moist without any exudate. CARDIOVASCULAR: Heart is regular in rhythm and rate. LUNGS: Clear to auscultation bilaterally. ABDOMEN: Soft with some tenderness in the bilateral lower quadrants. EXTREMITIES: No edema. NEUROLOGIC: No focal deficits. SKIN: Pallor present, no bruising. IMAGING/LABORATORY DATA: Chest x-ray was unremarkable. CT head negative. CBC with the findings as above. CMP unremarkable. PET scan on 07/15/2016 showed marked improvement with lymph nodes now measuring approximately 1.3 cm. He had mild splenomegaly. The lymph nodes did not have any residual uptake. ASSESSMENT AND PLAN: The patient is a 60-year-old male with the following medical problems: 1. Diffuse large B cell lymphoma/follicular lymphoma, treated by my colleague, Dr. Lamb with cycle 4 R-CHOP received 07/31/2016. Unfortunately, he has had significant problems with each cycle of treatment and now is having neutropenic fever related to the chemotherapy. Future doses of chemo, if given, will likely need to be dose reduced. He did have a good response to treatment on his PET 07/15. I will be sure to alert Dr. Lamb of his admission. 2. Neutropenic fever, chemotherapy related. I have started him on Granix daily, which we should continue until his ANC is clearly rising and near 1.5. Blood cultures have been performed. He is on empiric Zosyn as cefepime is on back order. I agree with discontinuation of vancomycin as he does not have any erythema or tenderness at his port site. 3. Loose stools with history of C. diff. Repeat C. diff testing has been requested and he is on empiric Flagyl until that test returns. It may be that as his blood counts improve, his loose stools will improve as well. Thank you for alerting us of his admission. I will continue to follow along until Dr. Lamb returns on Thursday. . This information was discussed with Dr. Edith Mukherjee. FRANCO SHEIKH DO DR: PAUL/dashawn JOB#: [id number] / [id number] [id number]
[2016-08-10] MEDS ORDERED: ESCI10TA PO (01:02)
[2016-08-10] MEDS ORDERED: PANT40TA3 PO (01:02)
[2016-08-10] MEDS ORDERED: FLUT9.9S NS (01:11)
[2016-08-10] MEDS ORDERED: MULT-658 PO (01:13)
[2016-08-10 02:54] VITALS: BP 95/63
--- NOTE | 2016-08-10 05:32 | CONS ---
DATE OF CONSULTATION: 08/08/2016 REQUESTING PHYSICIAN: Dr. Stahl. REASON FOR CONSULTATION: Neutropenic fever. HISTORY OF PRESENT ILLNESS: This patient is a 60-year-old male with non-Hodgkin lymphoma. He is currently undergoing chemotherapy consisting of CHOP and rituximab. His last treatment was on 07/31/2016. About 3 days ago, he began feeling weak. As he was leaning over in the bathroom, he fell forward into the shower. The following day, his legs felt "wobbly" and he again fell outside on the sidewalk. His took his temperature, which read 102. He was not feeling well and had the shake. He is complaining of generalized abdominal achy type pain associated with nausea and vomiting. The pain was relieved with lying flat and aggravated in a side-lying position. On arrival to the ER, he was febrile, tachycardic, and hypotensive, responsive to IV fluids. He was found neutropenic and pancytopenic. His lactic acid was normal. Head CT showed no acute processes. Urinalysis was unremarkable for infection. Blood cultures were obtained and are now showing gram-negative rosalee in 1 of 5 bottles. He received a one-time dose of vancomycin, and is on Zosyn and metronidazole. For the past 6 weeks or so, the patient reports having a diarrhea. He has a history of Clostridium difficile about 2 months ago and was treated with a course of Flagyl. Last month since the diarrhea returned, he thought maybe he was having a reoccurrence and completed another 10-day course of Flagyl for presumed Clostridium difficile. The diarrhea once again improved, but has since increased in frequency. He has had bowel urgency and incontinence. He is now at the point of not leaving his home in fear of having an accident in public. He thinks it may be related to his chemo. He denies dysuria, straining, or malodor. He denies cough, shortness of air or chest discomfort. He recalls having been on Levaquin a few weeks ago. He denies headaches, nasal/sinus congestion, or sore throat. He denies rash or joint pains. Denies redness, swelling or drainage of port site. PAST MEDICAL HISTORY: Gastrointestinal bleed, status post cauterization and clipping; Clostridium difficile; B cell lymphoma, currently undergoing chemotherapy; coronary artery disease, hypertension, hyperlipidemia, previous myocardial infarction, osteoarthritis, depression, gastroesophageal reflux disease. PAST SURGICAL HISTORY: Arthroscopy, deviated septum repair, coronary stent placement. FAMILY HISTORY: Positive for cancer, diabetes mellitus, and GI bleed. SOCIAL HISTORY: The patient is and lives at home. Former smoker. Drinks alcohol on occasion. ALLERGIES: No known drug allergies. MEDICATIONS: Granix. REVIEW OF SYSTEMS: Per HPI, otherwise all other review of systems are negative. PHYSICAL EXAMINATION: GENERAL: male, lying supine, in no apparent distress. VITAL SIGNS: Temperature is 100.2, T-max 101.3; blood pressure 108/66; heart rate 74; respiratory rate 18; pulse oximetry is 95% on room air. HEENT: Pupils are equally round and reactive. Normal conjunctivae. Oral mucosa is pink and moist. No ulcers or thrush. NECK: Supple. LUNGS: Clear to auscultation. HEART: Normal S1, S2. ABDOMEN: Nondistended. Bowel sounds are present, soft, mild diffuse tenderness without rebound. EXTREMITIES: No gross edema or cyanosis. SKIN: Without rash. Warm to touch. Right-sided Port-A-Cath is accessed. No redness, swelling, or drainage. NEUROLOGIC: Alert and oriented x 3. He is ambulatory. LABORATORY DATA: Today's WBC is 0.7, hemoglobin 9.9, platelet count 50,000, segs 13%, bands 20%. Electrolytes are unremarkable. Creatinine is 1.0, BUN 8, glucose 106. Repeat lactic acid is 1.1. Total bilirubin is 0.9, AST 17, ALT 32. Troponin is 0.059. BNP is 259, albumin 2.9, lipase 46. Urinalysis is unremarkable for infection. Blood cultures show gram-negative rods in 1 of [address] per HPI. Chest x-ray is unremarkable. Stool for Clostridium difficile is pending. IMPRESSION: 1. Gram-negative rosalee sepsis with hypotension, present on admission. 2. Abdominal pain. 3. Neutropenic fever. 4. Diarrhea with a history of Clostridium difficile. 5. Non-Hodgkin's lymphoma, undergoing chemotherapy. 6. Pancytopenia. 7. Coronary artery disease. PLAN: Change metronidazole to oral vancomycin and continue Zosyn. We will order a CT abdomen/pelvis to rule out colitis or typhlitis as source as gram-negative rosalee bacteremia. Await GNR identifications and sensitivities. We will follow up on laboratory values and cultures. Thank you, Dr. Stahl, for asking us to participate in this patient's care. Should you have further questions or concerns, please call. The patient is seen and examined and plan of care implemented by Dr. León Delcid. LEÓN DELCID MD DR: OLLIE/dashawn JOB#: [id number] / [id number]
[2016-08-10] MEDS: PIPERACILLIN/TAZOBACTAM 3.375 GM in IV NORMAL SALINE 50ML 50 ML IV SCH ×3 (06:07→17:44)
[2016-08-10 07:39] VITALS: BP 91/62
--- NOTE | 2016-08-10 08:38 | RAD ---
Indication: Right and left lower abdominal pain. B cell lymphoma. Technique: Axial images and coronal and sagittal reformatted images are provided. Oral contrast and 75 mL of intravenous Omnipaque 300 was administered without complication. Comparison is a PET/CT from July 17, 2016. One or more of the following individualized dose reduction techniques were utilized for this examination: 1. Automated exposure control 2. Adjustment of the mA and/or kV according to patient size 3. Use of iterative reconstruction technique Findings: There is minimal atelectasis in the lung bases. There is no pleural effusion. The heart is not enlarged. Coronary artery calcifications are noted. There is mild fatty infiltration of the liver. Gallbladder is unremarkable. Spleen is not enlarged. The pancreas and the adrenals are unremarkable. The kidneys are symmetrically perfused. Aorta is normal caliber with atheromatous disease. Retroperitoneal lymph nodes are similar to prior PET/CT. There is diffuse mural thickening in the colon. There is adjacent inflammatory stranding. There is no dilated small bowel loop or air-fluid level. There is no definite small bowel mural thickening. Normal appendix is noted. Bladder is decompressed. Prostate is not enlarged. There are mild degenerative changes in the spine. Impression: 1. Diffuse mural thickening involving the colon compatible with colitis. This is a change from prior. 2. Retroperitoneal lymph nodes again noted, similar to prior PET/CT.
[2016-08-10 08:40] LABS: CALCIUM 8.1 mg/dL (8.5-10.1); CREATININE 1.1 mg/dL (0.7-1.3); GFR 67.8; POTASSIUM 3.4 mmol/L (3.5-5.1)
[2016-08-10 08:47] LABS: CHOLESTEROL/HDL RATIO 4.2
[2016-08-10 08:50] LABS: BASO % 0 % (0-3); EOS % 2 % (0-3); HEMATOCRIT 29.8 % (39.0-53.0); HEMOGLOBIN 9.9 g/dL (13.0-17.5); LYMPH # 0.1 x10^3/uL (1.0-4.8); LYMPH % 3 % (24-48); MEAN CORPUSCULAR HEMOGLOBIN 30 pg (25-35); MEAN CORPUSCULAR HGB CONC 33 g/dL (31-37); MEAN CORPUSCULAR VOLUME 90 fL (79-100); MONO % 9 % (0-9); NEUT % 86 % (31-73); PLATELET COUNT 63 x10^3/uL (140-400); RED BLOOD COUNT 3.33 x10^6/uL (4.30-5.70); RED CELL DISTRIBUTION WIDTH 16.5 % (11.5-14.5); WHITE BLOOD COUNT 4.6 x10^3/uL (4.0-11.0)
[2016-08-10] MEDS: ESCITALOPRAM 10 MG TABLET. PO SCH (09:41)
[2016-08-10] MEDS: EZETIMIBE 10 MG TABLET PO SCH (09:41)
[2016-08-10] MEDS: VANCOMYCIN 125 MG/2.5 ML ORAL SOLUTION. PO SCH ×4 (09:41→20:57)
[2016-08-10] MEDS: HYDROCODONE/APAP 5/325MG TABLET. PO PRN (09:42)
--- NOTE | 2016-08-10 09:59 | PDOC ---
Subjective: Subjective: Onc f/u- DLBCL Pt with continued abd tenderness, loose stool multiple times last night. No SOB , CP, n/v. Objective: Vital Signs: Vital Signs Date Time Temp Pulse Resp B/P Pulse Ox O2 Delivery O2 Flow Rate FiO2 08/10/16 07:39 98.8 82 18 91/62 94 Room Air 98.8 08/09/16 20:00 93.0 Physical Exam: Abdomen: Other (mild tenderness diffusely) Heart: Regular rate Extremities: No edema General: Alert, Oriented X3, Cooperative, No acute distress Lungs: Clear to auscultation, Normal air movement Psych/Mental Status: Mental status NL, Mood NL Skin: No rashes, Other (port site remains clear, no erythema) Labs/Imaging: CBC improved- Hgn 9.9, plt up to 63, ANC 4..0 Blood cx- GNR CT A/P- Colitis present (new) Assessment/Plan A/P: 1. 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 Lamb to decide if further chemo to be given, has had complications with multiple cycles 2. Neutropenic fever, chemotherapy related due to typhlitis, GNR bacteremia - On zosyn per ID - Cardenas top granix after tonight's dose 3. Loose stools with history of C. diff. - On empiric po vanc, flagyl - If repeat C diff neg, can DC po vanc/ flagyl and start imodium prn - Should improve with count recovery FRANCO SHEIKH DO Aug 10, 2016 09:59
[2016-08-10 10:41] VITALS: BP 98/66
[2016-08-10 11:44] LABS: % BASOS 1 % (0-3); PLT ESTIMATE DECREASED (ADEQUATE)
[2016-08-10 11:45] LABS: TOXIC GRANULATION MOD
--- NOTE | 2016-08-10 12:48 | PDOC ---
SUBJECTIVE Subjective Pt says that he is feeling better today than when he first came into the hospital. He had multiple bouts of diarrhea through the night. Eating okay and drinking plenty of fluids. OBJECTIVE Vital Signs Vital Signs Date Time Temp Pulse Resp B/P Pulse Ox O2 Delivery O2 Flow Rate FiO2 08/10/16 10:41 98.2 74 18 98/66 95 Room Air 98.2 08/10/16 08:00 Room Air 08/10/16 07:39 98.8 82 18 91/62 94 Room Air 98.8 08/10/16 02:54 98.6 78 18 95/63 94 Room Air 98.6 08/10/16 00:52 20 96 Room Air 08/09/16 23:52 20 96 Room Air 08/09/16 22:59 100.4 84 18 94/64 91 Room Air 100.4 08/09/16 20:00 Room Air 93.0 08/09/16 19:00 101.7 91 18 98/53 94 Room Air 101.7 08/09/16 15:20 100.0 70 18 95/58 94 Room Air 100.0 I & O Intake and Output 08/10/16 07:00 Intake Total 1020 ml Output Total 510 ml Balance 510 ml Intake Oral 1020 ml Output Urine Total 510 ml # Voids 1 # Bowel Movements 2 PHYSICAL EXAM Physical Exam General: Alert, Oriented X3, Cooperative, No acute distress HEENT: Atraumatic, PERRLA, EOMI, Mucous membr. moist/pink Lungs: Clear to auscultation, Normal air movement Heart: RRR, no rubs, no gallops, no murmurs Abdomen: Normal bowel sounds, Soft, Other (lower abdomen diffusely tender) Extremities: No clubbing, No cyanosis, No edema Skin: No rashes, No breakdown Neuro: Normal speech, Normal tone, Sensation intact, Cranial nerves 3-12 NL Psych/Mental Status: Mental status NL, Mood NL ASSESSMENT/PLAN Assessment/Plan Pt is a 60yo CM admitted for sepsis and neutropenic fever 1)Sepsis- pt hypotensive but BP stable after receiving IVF hydration. Will continue to monitor and have low threshold to send to ICU if needed. Pt has neutropenic fever and was given Vancomycin and Zosyn in the ER. 08/14 blood cultures positive for GNR, ID following. C diff still pending but pt receiving po Vancomycin and IV Zosyn. CT Abdomen showing colitis. CXR WNL. Pt's U/A equivocal, urine culture with no growth. Blood cultures pending. 2)Neutropenic Fever- see above. Heme/Onc following. Received last round of chemotherapy just over a week ago 3)Hx CAD- Initial tropinin elevated, trending downward. Holding Imdur 2/2 hypotension. Cardiology following 4)HTN- pt currently hypotensive. Holding Imdur and Metoprolol 5)Pancytopenia- 2/2 recent chemotherapy. CTM. No active bleeding or oozing. Pt started on Granix 6)Depression- pt continued on Escitalopram 10mg 7)HLD- pt transitioned to Atorvastatin during hospitalization, normally on Rosuvastatin 40mg 8)Hypokalemia- will replace Problems: COMMENT Lab Laboratory Tests Test 08/09/16 13:00 08/10/16 08:00 Lactic Acid Level 1.1mmol/L (0.4-2.0) Troponin I Quantitative 0.059ng/mL (0.000-0.055) 0.064ng/mL (0.000-0.055) White Blood Count 4.6x10^3/uL (4.0-11.0) Red Blood Count 3.33x10^6/uL (4.30-5.70) Hemoglobin 9.9g/dL (13.0-17.5) Hematocrit 29.8% (39.0-53.0) Mean Corpuscular Volume 90fL (79-100) Mean Corpuscular Hemoglobin 30pg (25-35) Mean Corpuscular Hemoglobin Concent 33g/dL (31-37) Red Cell Distribution Width 16.5% (11.5-14.5) Platelet Count 63x10^3/uL (140-400) Neutrophils (%) (Auto) 86% (31-73) Lymphocytes (%) (Auto) 3% (24-48) Monocytes (%) (Auto) 9% (0-9) Eosinophils (%) (Auto) 2% (0-3) Basophils (%) (Auto) 0% (0-3) Neutrophils # (Auto) 4.0x10^3uL (1.8-7.7) Lymphocytes # (Auto) 0.1x10^3/uL (1.0-4.8) Monocytes # (Auto) 0.4x10^3/uL (0.0-1.1) Eosinophils # (Auto) 0.1x10^3/uL (0.0-0.7) Basophils # (Auto) 0.0x10^3/uL (0.0-0.2) Segmented Neutrophils % 56% (35-66) Band Neutrophils % 27% (0-9) Lymphocytes % 8% (24-48) Monocytes % 8% (0-10) Basophils % 1% (0-3) Toxic Granulation Mod Platelet Estimate Decreased (ADEQUATE) Sodium Level 134mmol/L (136-145) Potassium Level 3.4mmol/L (3.5-5.1) Chloride Level 99mmol/L (98-107) Carbon Dioxide Level 26mmol/L (21-32) Anion Gap 9 (6-14) Blood Urea Nitrogen 10mg/dL (8-26) Creatinine 1.1mg/dL (0.7-1.3) Estimated GFR (Cockcroft-Gault) 67.8 Glucose Level 91mg/dL (70-99) Calcium Level 8.1mg/dL (8.5-10.1) Triglycerides Level 92mg/dL (0-150) Cholesterol Level 75mg/dL (0-200) LDL Cholesterol, Calculated 39mg/dL (0-100) VLDL Cholesterol, Calculated 18mg/dL (0-40) HDL Cholesterol 18mg/dL (40-60) Cholesterol/HDL Ratio 4.2 TOLU SHEIKH MD Aug 10, 2016 12:48
--- NOTE | 2016-08-10 12:51 | PDOC ---
Infectious Disease Note Subjective Subjective Doing ok. Had 3 loose stools ROS ROS GEN: Denies fevers, chills, sweats HEENT: Denies blurred vision, sore throat CV: Denies chest pain RESP: Denies shortness of air, cough GI: Denies n/v NEURO: Denies confusion, dizziness MSK: Denies weakness, joint pain/swelling Vital Sign Vital Signs Vital Signs Date Time Temp Pulse Resp B/P Pulse Ox O2 Delivery O2 Flow Rate FiO2 08/10/16 10:41 98.2 74 18 98/66 95 Room Air 98.2 08/09/16 20:00 93.0 Physical Exam PHYSICAL EXAM GENERAL: NAD, Alert - looks well HEENT: PERRL, OC/OP - clean NECK: Supple, no JVD, no LN port - clean LUNGS: Clear HEART: S1S2, no gallop, no murmur ABD: Soft, NT, no organomegaly, no rebound EXT: No edema, no cyanosis [employer] AND [employer]ORT [employer]ANNER: Alert, oriented x 3, no focal neurologic deficit SKIN: No rash Labs Lab Laboratory Tests Test 08/09/16 13:00 08/10/16 08:00 Lactic Acid Level 1.1mmol/L (0.4-2.0) Troponin I Quantitative 0.059ng/mL (0.000-0.055) 0.064ng/mL (0.000-0.055) White Blood Count 4.6x10^3/uL (4.0-11.0) Red Blood Count 3.33x10^6/uL (4.30-5.70) Hemoglobin 9.9g/dL (13.0-17.5) Hematocrit 29.8% (39.0-53.0) Mean Corpuscular Volume 90fL (79-100) Mean Corpuscular Hemoglobin 30pg (25-35) Mean Corpuscular Hemoglobin Concent 33g/dL (31-37) Red Cell Distribution Width 16.5% (11.5-14.5) Platelet Count 63x10^3/uL (140-400) Neutrophils (%) (Auto) 86% (31-73) Lymphocytes (%) (Auto) 3% (24-48) Monocytes (%) (Auto) 9% (0-9) Eosinophils (%) (Auto) 2% (0-3) Basophils (%) (Auto) 0% (0-3) Neutrophils # (Auto) 4.0x10^3uL (1.8-7.7) Lymphocytes # (Auto) 0.1x10^3/uL (1.0-4.8) Monocytes # (Auto) 0.4x10^3/uL (0.0-1.1) Eosinophils # (Auto) 0.1x10^3/uL (0.0-0.7) Basophils # (Auto) 0.0x10^3/uL (0.0-0.2) Segmented Neutrophils % 56% (35-66) Band Neutrophils % 27% (0-9) Lymphocytes % 8% (24-48) Monocytes % 8% (0-10) Basophils % 1% (0-3) Toxic Granulation Mod Platelet Estimate Decreased (ADEQUATE) Sodium Level 134mmol/L (136-145) Potassium Level 3.4mmol/L (3.5-5.1) Chloride Level 99mmol/L (98-107) Carbon Dioxide Level 26mmol/L (21-32) Anion Gap 9 (6-14) Blood Urea Nitrogen 10mg/dL (8-26) Creatinine 1.1mg/dL (0.7-1.3) Estimated GFR (Cockcroft-Gault) 67.8 Glucose Level 91mg/dL (70-99) Calcium Level 8.1mg/dL (8.5-10.1) Triglycerides Level 92mg/dL (0-150) Cholesterol Level 75mg/dL (0-200) LDL Cholesterol, Calculated 39mg/dL (0-100) VLDL Cholesterol, Calculated 18mg/dL (0-40) HDL Cholesterol 18mg/dL (40-60) Cholesterol/HDL Ratio 4.2 Micro BLOOD CULTURE Final GRAM NEGATIVE RODS, IN 1 OF 5 BOTTLES, THREE SETS DRAWN. CT scan 08/09 Impression: 1. Diffuse mural thickening involving the colon compatible with colitis. This is a change from prior. 2. Retroperitoneal lymph nodes again noted, similar to prior PET/CT. Objective Assessment GNR sepsis with hypotension. POA 08/08. likely sec to colitis Diffuse colitis ? recurrent C-diff vs typhlitis Abd pain Neutropenic Fever better Diarrhea. recent h/o C. diff NHL undergoing chemo -Last TX 07/31. -Port placement Apr 28. Pancytopenia - better on Granix h/o GI bleed s/p cauterization and clipping CAD Plan Plan of Care Cont po vanc and continue Zosyn Await GNR ID/sensitivities C. diff pending Monitor WBC, Cr and temp Bedside commode On Granix D/w LEÓN DELCID MD Aug 10, 2016 12:51
[2016-08-10] MEDS ORDERED: POTASSIUM CHLORIDE 20 MEQ TABLET.ER. PO ONE (13:00)
--- NOTE | 2016-08-10 13:24 | PDOC ---
PROGRESS NOTES Subjective Subjective The patient feels about the same. No chest pain. Objective Objective Vital Signs Date Time Temp Pulse Resp B/P Pulse Ox O2 Delivery O2 Flow Rate FiO2 08/10/16 10:41 98.2 74 18 98/66 95 Room Air 98.2 08/09/16 20:00 93.0 Intake and Output 08/10/16 07:00 Intake Total 1020 ml Output Total 510 ml Balance 510 ml Intake Oral 1020 ml Output Urine Total 510 ml # Voids 1 # Bowel Movements 2 Physical Exam Abdomen: Normal bowel sounds Heart: Regular rate General: mild distress Lungs: Clear to auscultation Assessment Assessment Problems Medical Problems: (1) Elevated troponin Status: Acute (2) Neutropenia associated with infection Status: Acute (3) Sepsis Status: Acute (4) Severe sepsis Status: Acute Assessment/Plan 1. Sepsis with the patient being treated with chemotherapy for NHL. Antibiotics have been started as per the ID service. Oncology evaluation pending. 2. Neutropenia with fever. Antibiotics and oncology evaluation as above. 3. History of coronary artery disease. No chest pain reported. No ischemic EKG changes. 5 values of troponin between 0.075 and 0.059. Continue medical treatment. 4. Hypertension. Adjusting medications due to the patient's hypotension. 5. Hyperlipidemia. Continue statin. Comment Review of Relevant I have reviewed the following items bethanie (where applicable) has been applied. Labs Laboratory Tests Test 08/08/16 18:20 08/08/16 19:58 08/08/16 20:00 08/09/16 06:00 White Blood Count 0.4x10^3/uL (4.0-11.0) 0.7x10^3/uL (4.0-11.0) Red Blood Count 3.59x10^6/uL (4.30-5.70) 3.30x10^6/uL (4.30-5.70) Hemoglobin 10.7g/dL (13.0-17.5) 9.9g/dL (13.0-17.5) Hematocrit 31.7% (39.0-53.0) 29.5% (39.0-53.0) Mean Corpuscular Volume 88fL (79-100) 89fL (79-100) Mean Corpuscular Hemoglobin 30pg (25-35) 30pg (25-35) Mean Corpuscular Hemoglobin Concent 34g/dL (31-37) 34g/dL (31-37) Red Cell Distribution Width 16.6% (11.5-14.5) 16.5% (11.5-14.5) Platelet Count 57x10^3/uL (140-400) 50x10^3/uL (140-400) Neutrophils (%) (Auto) 29% (31-73) 59% (31-73) Lymphocytes (%) (Auto) 11% (24-48) 12% (24-48) Monocytes (%) (Auto) 59% (0-9) 26% (0-9) Eosinophils (%) (Auto) 1% (0-3) 3% (0-3) Basophils (%) (Auto) 0% (0-3) 1% (0-3) Neutrophils # (Auto) 0.1x10^3uL (1.8-7.7) 0.4x10^3uL (1.8-7.7) Lymphocytes # (Auto) 0.0x10^3/uL (1.0-4.8) 0.1x10^3/uL (1.0-4.8) Monocytes # (Auto) 0.2x10^3/uL (0.0-1.1) 0.2x10^3/uL (0.0-1.1) Eosinophils # (Auto) 0.0x10^3/uL (0.0-0.7) 0.0x10^3/uL (0.0-0.7) Basophils # (Auto) 0.0x10^3/uL (0.0-0.2) 0.0x10^3/uL (0.0-0.2) Segmented Neutrophils % 13% (35-66) Band Neutrophils % 20% (0-9) Lymphocytes % 13% (24-48) Monocytes % 51% (0-10) Eosinophils % 2% (0-5) Basophils % 1% (0-3) Toxic Granulation Slight Dohle Bodies Few Platelet Estimate Decreased (ADEQUATE) Sodium Level 135mmol/L (136-145) 136mmol/L (136-145) Potassium Level 3.6mmol/L (3.5-5.1) 4.0mmol/L (3.5-5.1) Chloride Level 98mmol/L (98-107) 101mmol/L (98-107) Carbon Dioxide Level 27mmol/L (21-32) 27mmol/L (21-32) Anion Gap 10 (6-14) 8 (6-14) Blood Urea Nitrogen 13mg/dL (8-26) 8mg/dL (8-26) Creatinine 1.2mg/dL (0.7-1.3) 1.0mg/dL (0.7-1.3) Estimated GFR (Cockcroft-Gault) 61.3 75.7 Glucose Level 128mg/dL (70-99) 106mg/dL (70-99) Lactic Acid Level 1.1mmol/L (0.4-2.0) 0.9mmol/L (0.4-2.0) Calcium Level 8.5mg/dL (8.5-10.1) 8.0mg/dL (8.5-10.1) Total Bilirubin 0.9mg/dL (0.2-1.0) Direct Bilirubin 0.3mg/dL (0.0-0.2) Aspartate Amino Transf (AST/SGOT) 17U/L (15-37) Alanine Aminotransferase (ALT/SGPT) 32U/L (16-63) Alkaline Phosphatase 39U/L (46-116) Troponin I Quantitative 0.061ng/mL (0.000-0.055) 0.075ng/mL (0.000-0.055) AS-Vjx-M-Type Natriuretic Peptide 259pg/mL (0-124) Total Protein 6.2g/dL (6.4-8.2) Albumin 2.9g/dL (3.4-5.0) Lipase 46U/L (73-393) Urine Color Shanel Urine Clarity Turbid Urine pH 6.0 Urine Specific [place] 1.015 Urine Protein 100mg/dL (NEG-TRACE) Urine Glucose (UA) Negativemg/dL (NEG) Urine Ketones (Stick) 15mg/dL (NEG) Urine Blood Small (NEG) Urine Nitrite Negative (NEG) Urine Bilirubin Negative (NEG) Urine Urobilinogen Dipstick 0.2mg/dL (0.2 mg/dL) Urine Leukocyte Esterase Negative (NEG) Urine RBC Occ/HPF (0-2) Urine WBC Occ/HPF (0-4) Urine Squamous Epithelial Cells None/LPF Urine Bacteria Few/HPF (0-FEW) Urine Mucus Mod/LPF Test 08/09/16 06:45 08/09/16 13:00 08/10/16 08:00 Troponin I Quantitative 0.072ng/mL (0.000-0.055) 0.059ng/mL (0.000-0.055) 0.064ng/mL (0.000-0.055) Lactic Acid Level 1.1mmol/L (0.4-2.0) White Blood Count 4.6x10^3/uL (4.0-11.0) Red Blood Count 3.33x10^6/uL (4.30-5.70) Hemoglobin 9.9g/dL (13.0-17.5) Hematocrit 29.8% (39.0-53.0) Mean Corpuscular Volume 90fL (79-100) Mean Corpuscular Hemoglobin 30pg (25-35) Mean Corpuscular Hemoglobin Concent 33g/dL (31-37) Red Cell Distribution Width 16.5% (11.5-14.5) Platelet Count 63x10^3/uL (140-400) Neutrophils (%) (Auto) 86% (31-73) Lymphocytes (%) (Auto) 3% (24-48) Monocytes (%) (Auto) 9% (0-9) Eosinophils (%) (Auto) 2% (0-3) Basophils (%) (Auto) 0% (0-3) Neutrophils # (Auto) 4.0x10^3uL (1.8-7.7) Lymphocytes # (Auto) 0.1x10^3/uL (1.0-4.8) Monocytes # (Auto) 0.4x10^3/uL (0.0-1.1) Eosinophils # (Auto) 0.1x10^3/uL (0.0-0.7) Basophils # (Auto) 0.0x10^3/uL (0.0-0.2) Segmented Neutrophils % 56% (35-66) Band Neutrophils % 27% (0-9) Lymphocytes % 8% (24-48) Monocytes % 8% (0-10) Basophils % 1% (0-3) Toxic Granulation Mod Platelet Estimate Decreased (ADEQUATE) Sodium Level 134mmol/L (136-145) Potassium Level 3.4mmol/L (3.5-5.1) Chloride Level 99mmol/L (98-107) Carbon Dioxide Level 26mmol/L (21-32) Anion Gap 9 (6-14) Blood Urea Nitrogen 10mg/dL (8-26) Creatinine 1.1mg/dL (0.7-1.3) Estimated GFR (Cockcroft-Gault) 67.8 Glucose Level 91mg/dL (70-99) Calcium Level 8.1mg/dL (8.5-10.1) Triglycerides Level 92mg/dL (0-150) Cholesterol Level 75mg/dL (0-200) LDL Cholesterol, Calculated 39mg/dL (0-100) VLDL Cholesterol, Calculated 18mg/dL (0-40) HDL Cholesterol 18mg/dL (40-60) Cholesterol/HDL Ratio 4.2 Laboratory Tests Test 08/10/16 08:00 White Blood Count 4.6x10^3/uL (4.0-11.0) Red Blood Count 3.33x10^6/uL (4.30-5.70) Hemoglobin 9.9g/dL (13.0-17.5) Hematocrit 29.8% (39.0-53.0) Mean Corpuscular Volume 90fL (79-100) Mean Corpuscular Hemoglobin 30pg (25-35) Mean Corpuscular Hemoglobin Concent 33g/dL (31-37) Red Cell Distribution Width 16.5% (11.5-14.5) Platelet Count 63x10^3/uL (140-400) Neutrophils (%) (Auto) 86% (31-73) Lymphocytes (%) (Auto) 3% (24-48) Monocytes (%) (Auto) 9% (0-9) Eosinophils (%) (Auto) 2% (0-3) Basophils (%) (Auto) 0% (0-3) Neutrophils # (Auto) 4.0x10^3uL (1.8-7.7) Lymphocytes # (Auto) 0.1x10^3/uL (1.0-4.8) Monocytes # (Auto) 0.4x10^3/uL (0.0-1.1) Eosinophils # (Auto) 0.1x10^3/uL (0.0-0.7) Basophils # (Auto) 0.0x10^3/uL (0.0-0.2) Segmented Neutrophils % 56% (35-66) Band Neutrophils % 27% (0-9) Lymphocytes % 8% (24-48) Monocytes % 8% (0-10) Basophils % 1% (0-3) Toxic Granulation Mod Platelet Estimate Decreased (ADEQUATE) Sodium Level 134mmol/L (136-145) Potassium Level 3.4mmol/L (3.5-5.1) Chloride Level 99mmol/L (98-107) Carbon Dioxide Level 26mmol/L (21-32) Anion Gap 9 (6-14) Blood Urea Nitrogen 10mg/dL (8-26) Creatinine 1.1mg/dL (0.7-1.3) Estimated GFR (Cockcroft-Gault) 67.8 Glucose Level 91mg/dL (70-99) Calcium Level 8.1mg/dL (8.5-10.1) Troponin I Quantitative 0.064ng/mL (0.000-0.055) Triglycerides Level 92mg/dL (0-150) Cholesterol Level 75mg/dL (0-200) LDL Cholesterol, Calculated 39mg/dL (0-100) VLDL Cholesterol, Calculated 18mg/dL (0-40) HDL Cholesterol 18mg/dL (40-60) Cholesterol/HDL Ratio 4.2 Microbiology 08/08/16 Blood Culture - Preliminary, Resulted NO GROWTH AFTER 1 DAY 08/08/16 Urine Culture - Preliminary, Resulted 08/08/16 Urine Culture Result 1 (YENY) - Preliminary, Resulted Medications Current Medications Sodium Chloride 10 ml 10 ml QSHIFT PRN IV AFTER MEDS AND BLOOD DRAWS; Start at 18:30 Sodium Chloride 1,000 ml @ 562.5 mls/ hr Q1H47M IV Last administered on at 21:47; Start 08/08/16 at 18:30; Stop 08/08/16 at 22:30; Status DC Piperacillin Sod/ Tazobactam Sod/ Sodium Chloride (Zosyn/Iv Sodium Chloride 0.9 % 50ml) 50 ml @ 100 mls/hr 1X ONCE IV Last administered on 08/08/16at 18:40; Start 08/08/16 at 18:30; Stop 08/08/16 at 18:59; Status DC Vancomycin HCl 1 each 1 each PRN DAILY PRN MC SEE COMMENTS Last administered on 08/08/16at 19:40; Start 08/08/16 at 18:30; Stop 08/09/16 at 09:14; Status DC Vancomycin HCl/ Sodium Chloride (Iv Sodium Chloride 0.9% 500ml Bag) 500 ml @ 250 mls/hr 1X ONCE IV Last administered on 08/08/16at 19:19; Start 08/08/16 at 18:30; Stop 08/08/16 at 20:29; Status DC Aspirin (Children'S Aspirin) 324 mg 1X ONCE PO Last administered on at 19:43; Start 08/08/16 at 19:15; Stop 08/08/16 at 19:16; Status DC Ondansetron HCl (Zofran) 4 mg PRN Q8HRS PRN IV NAUSEA/VOMITING; Start at 19:15; Stop 08/09/16 at 19:14; Status DC Morphine Sulfate 2 mg 2 mg PRN Q2HR PRN IV PAIN Last administered on at 21:29; Start 08/08/16 at 19:15; Stop 08/09/16 at 19:14; Status DC Vancomycin HCl/ Sodium Chloride (Iv Sodium Chloride 0.9% 250ml) 250 ml @ 167 mls/hr Q12H IV Last administered on 08/09/16at 08:36; Start 08/09/16 at 08:00 ; Stop 08/09/16 at 09:14; Status DC Vancomycin HCl 1 each 1X ONCE MC ; Start 08/10/16 at 07:30; Stop 08/10/16 at 07: 30; Status DC Tbo-Filgrastim (Granix) 480 mcg QHS SQ Last administered on 08/09/16at 21:51; Start 08/09/16 at 21:00 Escitalopram Oxalate (Lexapro) 10 mg DAILY PO Last administered on 08/10/16t 09: 41; Start 08/09/16 at 09:00 EZETIMIBE (Zetia) 10 mg DAILY PO Last administered on 08/10/16 09:41; Start at 09:00 Nitroglycerin (Nitrostat) 0.4 mg PRN Q5MIN PRN SL CHEST PAIN; Start 08/09/16 at 08:15 Atorvastatin Calcium (Lipitor) 20 mg QHS PO Last administered on 08/09/16at 21: 37; Start 08/09/16 at 21:00 Metronidazole 500 mg 500 mg Q8HRS PO Last administered on 08/09/16at 10:05; Start 08/09/16 at 10:00; Stop 08/09/16 at 11:59; Status DC Piperacillin Sod/ Tazobactam Sod/ Sodium Chloride (Zosyn/Iv Sodium Chloride 0.9 % 50ml) 50 ml @ 100 mls/hr Q6HRS IV Last administered on 08/09/16at 10:04; Start 08/09/16 at 10:00; Stop 08/09/16 at 10:17; Status DC Piperacillin Sod/ Tazobactam Sod 1 each 1 each PRN DAILY PRN MC SEE COMMENTS; Start 08/09/16 at 10:15 Piperacillin Sod/ Tazobactam Sod/ Sodium Chloride (Zosyn/Iv Sodium Chloride 0.9 % 50ml) 50 ml @ 100 mls/hr Q6HRS IV Last administered on 08/10/16 12:59; Start 08/09/16 at 12:00 Acetaminophen/ Hydrocodone Bitart (Lortab 5/325) 1 tab PRN Q6HRS PRN PO PAIN MILD TO MOD Last administered on 08/10/16 09:42; Start 08/09/16 at 10:45 Vancomycin HCl 125 mg [id number] PO Last administered on 08/10/16 12:58; Start at 13:00 Iohexol (Omnipaque 300 Mg/ml) 75 ml 1X ONCE IV Last administered on at 15:10; Start 08/09/16 at 13:30; Stop 08/09/16 at 13:31; Status DC Iohexol (Omnipaque 240 Mg/ml) 50 ml 1X ONCE PO Last administered on at 15:11; Start 08/09/16 at 13:30; Stop 08/09/16 at 13:31; Status DC Info (Do NOT chart on this entry -- for MONITORING) 1 each PRN DAILY PRN MC SEE COMMENTS; Start 08/09/16 at 13:30; Stop 08/11/16 at 13:29 Potassium Chloride (Klor-Con) 40 meq 1X ONCE PO Last administered on 08/10/16t 13:09; Start 08/10/16 at 13:00; Stop 08/10/16 at 13:01; Status DC Active Scripts Active Reported Centrum Silver Tablet (Multivits-Min/Fa/Lycopene/Lut) 1 Each Tablet 1 Each PO DAILY Flonase Allergy Relief (Fluticasone Propionate) 9.9 Ml [place].susp 2 Sprays NS PRN Q6HRS Protonix (Pantoprazole Sodium) 40 Mg Tablet.dr 1 Tab PO DAILY Metoprolol Tartrate 25 Mg Tablet 0.5 Tab PO DAILYBFRSUP Escitalopram Oxalate 10 Mg Tablet 1 Tab PO DAILY Ondansetron Hcl 8 Mg Tablet 8 Mg PO BID PRN Zetia (Ezetimibe) 10 Mg Tablet 10 PO DAILY NITROGLYCERIN SubLingual (Nitroglycerin) 0.4 Mg Tab.subl 0.4 Mg SL PRN Q5MIN PRN Aspirin 81 Mg Tab.chew 81 Mg PO DAILY Isosorbide Mononitrate Er (Isosorbide Mononitrate) 30 Mg Tab.er.24h 60 Mg PO DAILY Crestor (Rosuvastatin Calcium) 40 Mg Tablet 40 Mg PO DAILY Vitals/I & O Vital Sign - Last 24 Hours 08/09/16 08/09/16 08/09/16 08/09/16 15:20 19:00 20:00 22:59 Temp 100.0 101.7 100.4 100.0 101.7 100.4 Pulse 70 91 84 Resp 18 18 18 B/P 95/58 98/53 94/64 Pulse Ox 94 94 91 O2 Delivery Room Air Room Air Room Air Room Air O2 Flow Rate 93.0 08/09/16 08/10/16 08/10/16 08/10/16 23:52 00:52 02:54 07:39 Temp 98.6 98.8 98.6 98.8 Pulse 78 82 Resp 20 20 18 18 B/P 95/63 91/62 Pulse Ox 96 96 94 94 O2 Delivery Room Air Room Air Room Air Room Air 08/10/16 08/10/16 08:00 10:41 Temp 98.2 98.2 Pulse 74 Resp 18 B/P 98/66 Pulse Ox 95 O2 Delivery Room Air Room Air Intake and Output 08/09/16 08/09/16 08/10/16 15:00 23:00 07:00 Intake Total 600 ml 420 ml Output Total 260 ml 250 ml Balance 600 ml 160 ml -250 ml NAVEEN AKHTAR MD Aug 10, 2016 13:24
[2016-08-10 15:38] VITALS: BP 103/73
[2016-08-10 19:46] VITALS: BP 100/56
[2016-08-10] MEDS: ATORVASTATIN CALCIUM 20 MG TABLET PO SCH (20:56)
[2016-08-10] MEDS: TBO-FILGRASTIM 480 MCG/0.8 ML SYRINGE. SQ SCH (20:57)
[2016-08-10 22:45] VITALS: BP 83/58
[2016-08-11] MEDS: PIPERACILLIN/TAZOBACTAM 3.375 GM in IV NORMAL SALINE 50ML 50 ML IV SCH ×2 (00:13→06:11)
[2016-08-11 03:11] VITALS: BP 102/56
[2016-08-11 07:05] VITALS: BP 88/52
[2016-08-11] MEDS: EZETIMIBE 10 MG TABLET PO SCH (07:43)
[2016-08-11] MEDS: VANCOMYCIN 125 MG/2.5 ML ORAL SOLUTION. PO SCH ×4 (07:43→20:25)
[2016-08-11] MEDS: ESCITALOPRAM 10 MG TABLET. PO SCH (07:43)
[2016-08-11 08:06] LABS: CALCIUM 8.5 mg/dL (8.5-10.1); CREATININE 1.1 mg/dL (0.7-1.3); GFR 67.8; POTASSIUM 3.8 mmol/L (3.5-5.1)
--- NOTE | 2016-08-11 09:44 | PDOC ---
Subjective: Subjective: Onc f/u- DLBCL Pt with continued diarrhea, abd tenderness. No SOB, chest pain. C. diff +. Objective: Vital Signs: Vital Signs Date Time Temp Pulse Resp B/P Pulse Ox O2 Delivery O2 Flow Rate FiO2 08/11/16 07:44 Room Air 08/11/16 07:05 98.1 70 18 88/52 95 98.1 Physical Exam: Abdomen: Other (tenderness unchanged) Heart: Regular rate Extremities: No edema General: Alert, Oriented X3, Cooperative, No acute distress Lungs: Clear to auscultation, Normal air movement Psych/Mental Status: Mental status NL, Mood NL Skin: Other (pallor present) Labs/Imaging: CBC pending C diff + Assessment/Plan A/P: 1. 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 Lamb to decide if further chemo to be given/ dose reduction, has had complications with multiple cycles 2. Neutropenic fever, chemotherapy related due to typhlitis, GNR bacteremia, C. diff+ - On zosyn per ID - Off granix as ANC increased; today's CBC is pending 3. C diff colitis, loose stools continue - On po vanc per ID, day 3 From onc standpoint, if pending ANC remains elevated, ok to DC when stable from ID standpoint. Onc issues are stable. Dr. Lamb will return tomorrow. FRANCO SHEIKH DO Aug 11, 2016 09:44
--- NOTE | 2016-08-11 10:41 | PDOC ---
Infectious Disease Note Subjective Subjective Doing ok. Had 4 loose stools o/w ok ROS ROS GEN: Denies fevers, chills, sweats HEENT: Denies blurred vision, sore throat CV: Denies chest pain RESP: Denies shortness of air, cough GI: Denies n/v NEURO: Denies confusion, dizziness MSK: Denies weakness, joint pain/swelling Vital Sign Vital Signs Vital Signs Date Time Temp Pulse Resp B/P Pulse Ox O2 Delivery O2 Flow Rate FiO2 08/11/16 07:44 Room Air 08/11/16 07:05 98.1 70 18 88/52 95 98.1 Physical Exam PHYSICAL EXAM GENERAL: NAD, Alert HEENT: PERRL, OC/OP - clear NECK: Supple, no JVD, no LN LUNGS: Clear HEART: S1S2, no gallop, no murmur ABD: Soft, NT, no organomegaly, no rebound EXT: No edema, no cyanosis PORTER MARINA: Alert, oriented x 3, no focal neurologic deficit SKIN: No rash IV: port Labs Lab Laboratory Tests Test 08/11/16 07:40 Sodium Level 139mmol/L (136-145) Potassium Level 3.8mmol/L (3.5-5.1) Chloride Level 103mmol/L (98-107) Carbon Dioxide Level 27mmol/L (21-32) Anion Gap 9 (6-14) Blood Urea Nitrogen 9mg/dL (8-26) Creatinine 1.1mg/dL (0.7-1.3) Estimated GFR (Cockcroft-Gault) 67.8 Glucose Level 93mg/dL (70-99) Calcium Level 8.5mg/dL (8.5-10.1) Micro BLOOD CULTURE Final GRAM NEGATIVE RODS, IN 1 OF 5 BOTTLES, THREE SETS DRAWN. CT scan 08/09 Impression: 1. Diffuse mural thickening involving the colon compatible with colitis. This is a change from prior. 2. Retroperitoneal lymph nodes again noted, similar to prior PET/CT. Objective Assessment Ecoli sepsis with hypotension. POA 08/08. likely sec to colitis only 1 of 5 bottles Diffuse colitis ? recurrent C-diff + Abd pain - better Neutropenic Fever better Diarrhea. recent h/o C. diff NHL undergoing chemo -Last TX 07/31. -Port placement Apr 28. Pancytopenia - better on Granix h/o GI bleed s/p cauterization and clipping CAD Plan Plan of Care Cont po vanc Discontinue Zosyn (08/09) Add po Flagyl as anaerobe cults not final Change to IV Cipro to narrow spectrum Monitor WBC, Cr and temp Bedside commode Home when stools have decreased - already 4 today. At risk for dehydration. Will add probiotics if WBC normal again / LEÓN DELCID MD Aug 11, 2016 10:41
[2016-08-11 11:14] VITALS: BP 101/59
[2016-08-11] MEDS: CIPROFLOXACIN 400MG PREMIX 200 ML IV SCH ×2 (12:03→20:25)
[2016-08-11 12:10] LABS: BASO % 0 % (0-3); EOS % 1 % (0-3); HEMATOCRIT 32.4 % (39.0-53.0); HEMOGLOBIN 10.8 g/dL (13.0-17.5); LYMPH # 0.3 x10^3/uL (1.0-4.8); LYMPH % 2 % (24-48); MEAN CORPUSCULAR HEMOGLOBIN 29 pg (25-35); MEAN CORPUSCULAR HGB CONC 33 g/dL (31-37); MEAN CORPUSCULAR VOLUME 89 fL (79-100); MONO % 6 % (0-9); NEUT % 91 % (31-73); PLATELET COUNT 92 x10^3/uL (140-400); RED BLOOD COUNT 3.67 x10^6/uL (4.30-5.70); RED CELL DISTRIBUTION WIDTH 16.1 % (11.5-14.5); WHITE BLOOD COUNT 12.5 x10^3/uL (4.0-11.0)
[2016-08-11 12:57] LABS: ANISOCYTOSIS SLIGHT; PLT ESTIMATE DECREASED (ADEQUATE)
--- NOTE | 2016-08-11 12:58 | PDOC ---
SUBJECTIVE Subjective Pt still having significant diarrhea and abdominal pain. Able to eat. Otherwise doing well. OBJECTIVE Vital Signs Vital Signs Date Time Temp Pulse Resp B/P Pulse Ox O2 Delivery O2 Flow Rate FiO2 08/11/16 11:14 97.9 73 18 101/59 93 Room Air 97.9 08/11/16 07:44 Room Air 08/11/16 07:05 98.1 70 18 88/52 95 Room Air 98.1 08/11/16 03:11 98.0 73 17 102/56 96 Room Air 98.0 08/10/16 22:45 98.1 72 16 83/58 95 Room Air 98.1 08/10/16 20:00 Room Air 08/10/16 19:46 98.6 77 16 100/56 94 Room Air 98.6 08/10/16 15:38 98.6 75 18 103/73 95 Room Air 98.6 I & O Intake and Output 08/11/16 07:00 Intake Total 1250 ml Output Total 440 ml Balance 810 ml Intake Oral 1250 ml Output Urine Total 440 ml # Voids 7 PHYSICAL EXAM Physical Exam General: Alert, Oriented X3, Cooperative, No acute distress HEENT: Atraumatic, PERRLA, EOMI, Mucous membr. moist/pink Lungs: Clear to auscultation, Normal air movement Heart: RRR, no rubs, no gallops, no murmurs Abdomen: Normal bowel sounds, Soft, Other (lower abdomen diffusely tender) Extremities: No clubbing, No cyanosis, No edema Skin: No rashes, No breakdown Neuro: Normal speech, Normal tone, Sensation intact, Cranial nerves 3-12 NL Psych/Mental Status: Mental status NL, Mood NL ASSESSMENT/PLAN Assessment/Plan Pt is a 60yo CM admitted for sepsis and neutropenic fever 1)Sepsis- 2/2 C diff colitis. Pt hypotensive but stable. 1/ blood cultures positive for Ecoli, ID following. Pt initially started on Vancomycin and Zosyn in the ER, transitioned to po Vancomycin and IV Zosyn yesterday, and po Metronidazole and Vancomycin, with IV Cipro today. ID following. CT Abdomen showing colitis. 2)Neutropenic Fever- see above. Heme/Onc following. Received last round of chemotherapy just over a week ago 3)Hx CAD- Initial tropinin elevated, trending downward. Holding Imdur 2/2 hypotension. Cardiology following 4)HTN- pt currently hypotensive. Holding Imdur and Metoprolol 5)Pancytopenia- 2/2 recent chemotherapy. Improving, no active bleeding or oozing. Pt initially on Granix, stopped yesterday 6)Depression- pt continued on Escitalopram 10mg 7)HLD- pt transitioned to Atorvastatin during hospitalization, normally on Rosuvastatin 40mg 8)Hypokalemia- resolved Problems: COMMENT Lab Laboratory Tests Test 08/11/16 07:40 White Blood Count 12.5x10^3/uL (4.0-11.0) Red Blood Count 3.67x10^6/uL (4.30-5.70) Hemoglobin 10.8g/dL (13.0-17.5) Hematocrit 32.4% (39.0-53.0) Mean Corpuscular Volume 89fL (79-100) Mean Corpuscular Hemoglobin 29pg (25-35) Mean Corpuscular Hemoglobin Concent 33g/dL (31-37) Red Cell Distribution Width 16.1% (11.5-14.5) Platelet Count 92x10^3/uL (140-400) Neutrophils (%) (Auto) 91% (31-73) Lymphocytes (%) (Auto) 2% (24-48) Monocytes (%) (Auto) 6% (0-9) Eosinophils (%) (Auto) 1% (0-3) Basophils (%) (Auto) 0% (0-3) Neutrophils # (Auto) 11.4x10^3uL (1.8-7.7) Lymphocytes # (Auto) 0.3x10^3/uL (1.0-4.8) Monocytes # (Auto) 0.7x10^3/uL (0.0-1.1) Eosinophils # (Auto) 0.1x10^3/uL (0.0-0.7) Basophils # (Auto) 0.0x10^3/uL (0.0-0.2) Sodium Level 139mmol/L (136-145) Potassium Level 3.8mmol/L (3.5-5.1) Chloride Level 103mmol/L (98-107) Carbon Dioxide Level 27mmol/L (21-32) Anion Gap 9 (6-14) Blood Urea Nitrogen 9mg/dL (8-26) Creatinine 1.1mg/dL (0.7-1.3) Estimated GFR (Cockcroft-Gault) 67.8 Glucose Level 93mg/dL (70-99) Calcium Level 8.5mg/dL (8.5-10.1) TOLU SHEIKH MD Aug 11, 2016 12:58
[2016-08-11] MEDS: METRONIDAZOLE 500 MG TABLET. PO SCH ×2 (14:34→20:25)
[2016-08-11 15:00] VITALS: BP 89/49
[2016-08-11 19:00] VITALS: BP 105/59
[2016-08-11] MEDS: ATORVASTATIN CALCIUM 20 MG TABLET PO SCH (20:25)
[2016-08-11 23:00] VITALS: BP 103/72
[2016-08-12 03:00] VITALS: BP 90/57
[2016-08-12] MEDS: METRONIDAZOLE 500 MG TABLET. PO SCH ×2 (05:51→15:41)
[2016-08-12 07:00] VITALS: BP 97/72
[2016-08-12 07:20] LABS: CALCIUM 8.8 mg/dL (8.5-10.1); GFR 75.7; POTASSIUM 3.7 mmol/L (3.5-5.1)
[2016-08-12] MEDS: ESCITALOPRAM 10 MG TABLET. PO SCH (08:25)
[2016-08-12] MEDS: EZETIMIBE 10 MG TABLET PO SCH (08:25)
[2016-08-12] MEDS: CIPROFLOXACIN 400MG PREMIX 200 ML IV SCH (08:26)
[2016-08-12] MEDS: VANCOMYCIN 125 MG/2.5 ML ORAL SOLUTION. PO SCH ×2 (08:26→13:15)
[2016-08-12 09:46] LABS: BASO # 0.1 x10^3/uL (0.0-0.2); BASO % 1 % (0-3); EOS % 1 % (0-3); HEMATOCRIT 34.5 % (39.0-53.0); HEMOGLOBIN 11.6 g/dL (13.0-17.5); LYMPH # 0.4 x10^3/uL (1.0-4.8); LYMPH % 4 % (24-48); MEAN CORPUSCULAR HEMOGLOBIN 30 pg (25-35); MEAN CORPUSCULAR HGB CONC 34 g/dL (31-37); MEAN CORPUSCULAR VOLUME 89 fL (79-100); MONO % 6 % (0-9); NEUT % 89 % (31-73); PLATELET COUNT 142 x10^3/uL (140-400); RED CELL DISTRIBUTION WIDTH 16.9 % (11.5-14.5); WHITE BLOOD COUNT 10.5 x10^3/uL (4.0-11.0)
--- NOTE | 2016-08-12 10:44 | PDOC ---
Infectious Disease Note Subjective Subjective Doing better. Less stool ROS ROS GEN: Denies fevers, chills, sweats HEENT: Denies blurred vision, sore throat CV: Denies chest pain RESP: Denies shortness of air, cough GI: Denies n/v/d NEURO: Denies confusion, dizziness MSK: Denies weakness, joint pain/swelling Vital Sign Vital Signs Vital Signs Date Time Temp Pulse Resp B/P Pulse Ox O2 Delivery O2 Flow Rate FiO2 08/12/16 08:00 Room Air 08/12/16 07:00 97.5 68 18 97/72 95 97.5 Physical Exam PHYSICAL EXAM GENERAL: NAD, Alert HEENT: PERRL, OC/OP -clear Port NECK: Supple, no JVD, no LN LUNGS: Clear HEART: S1S2, no gallop, no murmur ABD: Soft, NT, no organomegaly, no rebound EXT: No edema, no cyanosis SOLE ASSESSOR: Alert, oriented x 3, no focal neurologic deficit SKIN: No rash IV: ok Labs Lab Laboratory Tests Test 08/12/16 06:20 White Blood Count 10.5x10^3/uL (4.0-11.0) Red Blood Count 3.90x10^6/uL (4.30-5.70) Hemoglobin 11.6g/dL (13.0-17.5) Hematocrit 34.5% (39.0-53.0) Mean Corpuscular Volume 89fL (79-100) Mean Corpuscular Hemoglobin 30pg (25-35) Mean Corpuscular Hemoglobin Concent 34g/dL (31-37) Red Cell Distribution Width 16.9% (11.5-14.5) Platelet Count 142x10^3/uL (140-400) Neutrophils (%) (Auto) 89% (31-73) Lymphocytes (%) (Auto) 4% (24-48) Monocytes (%) (Auto) 6% (0-9) Eosinophils (%) (Auto) 1% (0-3) Basophils (%) (Auto) 1% (0-3) Neutrophils # (Auto) 9.3x10^3uL (1.8-7.7) Lymphocytes # (Auto) 0.4x10^3/uL (1.0-4.8) Monocytes # (Auto) 0.6x10^3/uL (0.0-1.1) Eosinophils # (Auto) 0.1x10^3/uL (0.0-0.7) Basophils # (Auto) 0.1x10^3/uL (0.0-0.2) Sodium Level 144mmol/L (136-145) Potassium Level 3.7mmol/L (3.5-5.1) Chloride Level 106mmol/L (98-107) Carbon Dioxide Level 30mmol/L (21-32) Anion Gap 8 (6-14) Blood Urea Nitrogen 10mg/dL (8-26) Creatinine 1.0mg/dL (0.7-1.3) Estimated GFR (Cockcroft-Gault) 75.7 Glucose Level 111mg/dL (70-99) Calcium Level 8.8mg/dL (8.5-10.1) Micro BLOOD CULTURE Final GRAM NEGATIVE RODS, IN 1 OF 5 BOTTLES, THREE SETS DRAWN. CT scan 08/09 Impression: 1. Diffuse mural thickening involving the colon compatible with colitis. This is a change from prior. 2. Retroperitoneal lymph nodes again noted, similar to prior PET/CT. Objective Assessment Ecoli sepsis with hypotension. POA 08/08. likely sec to colitis only 1 of 5 bottles Diffuse colitis ? recurrent C-diff + Abd pain - better Neutropenic - resolved Diarrhea. recent h/o C. diff NHL undergoing chemo -Last TX 07/31. -Port placement Apr 28. Pancytopenia - better on Granix h/o GI bleed s/p cauterization and clipping CAD Plan Plan of Care Cont po vanc Home on Cipro 750 mg po BID Home on po Vanc QID for 3 weeks/TID for one week/BID for 4 weeks D/c Flagyl F/u ID office 2 weeks [phone] LEÓN DELCID MD Aug 12, 2016 10:44
[2016-08-12 11:00] VITALS: BP 94/64
--- NOTE | 2016-08-12 12:39 | PDOC ---
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 Objective Objective Vital Signs Date Time Temp Pulse Resp B/P Pulse Ox O2 Delivery O2 Flow Rate FiO2 08/12/16 11:00 97.5 67 18 94/64 95 Room Air 97.5 08/09/16 20:00 93.0 Intake and Output 08/12/16 07:00 Intake Total 1930 ml Balance 1930 ml Intake Oral 1930 ml # Voids 6 # Bowel Movements 3 Physical Exam Heart: Normal S1, Normal S2 General: Alert, Oriented X3 Neuro: Normal speech Psych/Mental Status: Mental status NL Assessment Assessment Problems Medical Problems: (1) Elevated troponin Status: Acute (2) Neutropenia associated with infection Status: Acute (3) Sepsis Status: Acute (4) Severe sepsis Status: Acute A/P: 1. 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 2. Neutropenic fever, chemotherapy related due to typhlitis, E coli bacteremia , C. diff+ - appreciate ID management 3. C diff colitis, loose stools continue - On po vanc per ID ok to DC when stable from ID standpoint. f/u with me next week. Comment Review of Relevant I have reviewed the following items bethanie (where applicable) has been applied. Labs Laboratory Tests Test 08/11/16 07:40 08/12/16 06:20 White Blood Count 12.5x10^3/uL (4.0-11.0) 10.5x10^3/uL (4.0-11.0) Red Blood Count 3.67x10^6/uL (4.30-5.70) 3.90x10^6/uL (4.30-5.70) Hemoglobin 10.8g/dL (13.0-17.5) 11.6g/dL (13.0-17.5) Hematocrit 32.4% (39.0-53.0) 34.5% (39.0-53.0) Mean Corpuscular Volume 89fL (79-100) 89fL (79-100) Mean Corpuscular Hemoglobin 29pg (25-35) 30pg (25-35) Mean Corpuscular Hemoglobin Concent 33g/dL (31-37) 34g/dL (31-37) Red Cell Distribution Width 16.1% (11.5-14.5) 16.9% (11.5-14.5) Platelet Count 92x10^3/uL (140-400) 142x10^3/uL (140-400) Neutrophils (%) (Auto) 91% (31-73) 89% (31-73) Lymphocytes (%) (Auto) 2% (24-48) 4% (24-48) Monocytes (%) (Auto) 6% (0-9) 6% (0-9) Eosinophils (%) (Auto) 1% (0-3) 1% (0-3) Basophils (%) (Auto) 0% (0-3) 1% (0-3) Neutrophils # (Auto) 11.4x10^3uL (1.8-7.7) 9.3x10^3uL (1.8-7.7) Lymphocytes # (Auto) 0.3x10^3/uL (1.0-4.8) 0.4x10^3/uL (1.0-4.8) Monocytes # (Auto) 0.7x10^3/uL (0.0-1.1) 0.6x10^3/uL (0.0-1.1) Eosinophils # (Auto) 0.1x10^3/uL (0.0-0.7) 0.1x10^3/uL (0.0-0.7) Basophils # (Auto) 0.0x10^3/uL (0.0-0.2) 0.1x10^3/uL (0.0-0.2) Segmented Neutrophils % 46% (35-66) Band Neutrophils % 42% (0-9) Lymphocytes % 4% (24-48) Monocytes % 3% (0-10) Metamyelocytes % 5% (0-0) Dohle Bodies Present Platelet Estimate Decreased (ADEQUATE) Anisocytosis Slight Sodium Level 139mmol/L (136-145) 144mmol/L (136-145) Potassium Level 3.8mmol/L (3.5-5.1) 3.7mmol/L (3.5-5.1) Chloride Level 103mmol/L (98-107) 106mmol/L (98-107) Carbon Dioxide Level 27mmol/L (21-32) 30mmol/L (21-32) Anion Gap 9 (6-14) 8 (6-14) Blood Urea Nitrogen 9mg/dL (8-26) 10mg/dL (8-26) Creatinine 1.1mg/dL (0.7-1.3) 1.0mg/dL (0.7-1.3) Estimated GFR (Cockcroft-Gault) 67.8 75.7 Glucose Level 93mg/dL (70-99) 111mg/dL (70-99) Calcium Level 8.5mg/dL (8.5-10.1) 8.8mg/dL (8.5-10.1) Laboratory Tests Test 08/12/16 06:20 White Blood Count 10.5x10^3/uL (4.0-11.0) Red Blood Count 3.90x10^6/uL (4.30-5.70) Hemoglobin 11.6g/dL (13.0-17.5) Hematocrit 34.5% (39.0-53.0) Mean Corpuscular Volume 89fL (79-100) Mean Corpuscular Hemoglobin 30pg (25-35) Mean Corpuscular Hemoglobin Concent 34g/dL (31-37) Red Cell Distribution Width 16.9% (11.5-14.5) Platelet Count 142x10^3/uL (140-400) Neutrophils (%) (Auto) 89% (31-73) Lymphocytes (%) (Auto) 4% (24-48) Monocytes (%) (Auto) 6% (0-9) Eosinophils (%) (Auto) 1% (0-3) Basophils (%) (Auto) 1% (0-3) Neutrophils # (Auto) 9.3x10^3uL (1.8-7.7) Lymphocytes # (Auto) 0.4x10^3/uL (1.0-4.8) Monocytes # (Auto) 0.6x10^3/uL (0.0-1.1) Eosinophils # (Auto) 0.1x10^3/uL (0.0-0.7) Basophils # (Auto) 0.1x10^3/uL (0.0-0.2) Sodium Level 144mmol/L (136-145) Potassium Level 3.7mmol/L (3.5-5.1) Chloride Level 106mmol/L (98-107) Carbon Dioxide Level 30mmol/L (21-32) Anion Gap 8 (6-14) Blood Urea Nitrogen 10mg/dL (8-26) Creatinine 1.0mg/dL (0.7-1.3) Estimated GFR (Cockcroft-Gault) 75.7 Glucose Level 111mg/dL (70-99) Calcium Level 8.8mg/dL (8.5-10.1) Microbiology 08/08/16 Blood Culture - Preliminary, Resulted NO GROWTH AFTER 3 DAYS 08/08/16 Urine Culture - Final, Complete 08/08/16 Urine Culture Result 1 (YENY) - Final, Complete Medications Current Medications Sodium Chloride 10 ml 10 ml QSHIFT PRN IV AFTER MEDS AND BLOOD DRAWS; Start at 18:30 Sodium Chloride 1,000 ml @ 562.5 mls/ hr Q1H47M IV Last administered on at 21:47; Start 08/08/16 at 18:30; Stop 08/08/16 at 22:30; Status DC Piperacillin Sod/ Tazobactam Sod/ Sodium Chloride (Zosyn/Iv Sodium Chloride 0.9 % 50ml) 50 ml @ 100 mls/hr 1X ONCE IV Last administered on 08/08/16at 18:40; Start 08/08/16 at 18:30; Stop 08/08/16 at 18:59; Status DC Vancomycin HCl 1 each 1 each PRN DAILY PRN MC SEE COMMENTS Last administered on 08/08/16at 19:40; Start 08/08/16 at 18:30; Stop 08/09/16 at 09:14; Status DC Vancomycin HCl/ Sodium Chloride (Iv Sodium Chloride 0.9% 500ml Bag) 500 ml @ 250 mls/hr 1X ONCE IV Last administered on 08/08/16at 19:19; Start 08/08/16 at 18:30; Stop 08/08/16 at 20:29; Status DC Aspirin (Children'S Aspirin) 324 mg 1X ONCE PO Last administered on at 19:43; Start 08/08/16 at 19:15; Stop 08/08/16 at 19:16; Status DC Ondansetron HCl (Zofran) 4 mg PRN Q8HRS PRN IV NAUSEA/VOMITING; Start at 19:15; Stop 08/09/16 at 19:14; Status DC Morphine Sulfate 2 mg 2 mg PRN Q2HR PRN IV PAIN Last administered on at 21:29; Start 08/08/16 at 19:15; Stop 08/09/16 at 19:14; Status DC Vancomycin HCl/ Sodium Chloride (Iv Sodium Chloride 0.9% 250ml) 250 ml @ 167 mls/hr Q12H IV Last administered on 08/09/16at 08:36; Start 08/09/16 at 08:00 ; Stop 08/09/16 at 09:14; Status DC Vancomycin HCl 1 each 1X ONCE MC ; Start 08/10/16 at 07:30; Stop 08/10/16 at 07: 30; Status DC Tbo-Filgrastim (Granix) 480 mcg QHS SQ Last administered on 08/10/16 20:57; Start 08/09/16 at 21:00; Stop 08/11/16 at 16:01; Status DC Escitalopram Oxalate (Lexapro) 10 mg DAILY PO Last administered on 08/12/16 08: 25; Start 08/09/16 at 09:00 EZETIMIBE (Zetia) 10 mg DAILY PO Last administered on 08/12/16 08:25; Start at 09:00 Nitroglycerin (Nitrostat) 0.4 mg PRN Q5MIN PRN SL CHEST PAIN; Start 08/09/16 at 08:15 Atorvastatin Calcium (Lipitor) 20 mg QHS PO Last administered on 08/11/16 20:25 ; Start 08/09/16 at 21:00 Metronidazole 500 mg 500 mg Q8HRS PO Last administered on 08/09/16at 10:05; Start 08/09/16 at 10:00; Stop 08/09/16 at 11:59; Status DC Piperacillin Sod/ Tazobactam Sod/ Sodium Chloride (Zosyn/Iv Sodium Chloride 0.9 % 50ml) 50 ml @ 100 mls/hr Q6HRS IV Last administered on 08/09/16at 10:04; Start 08/09/16 at 10:00; Stop 08/09/16 at 10:17; Status DC Piperacillin Sod/ Tazobactam Sod 1 each 1 each PRN DAILY PRN MC SEE COMMENTS; Start 08/09/16 at 10:15; Stop 08/11/16 at 10:39; Status DC Piperacillin Sod/ Tazobactam Sod/ Sodium Chloride (Zosyn/Iv Sodium Chloride 0.9 % 50ml) 50 ml @ 100 mls/hr Q6HRS IV Last administered on 08/11/16 06:11; Start 08/09/16 at 12:00; Stop 08/11/16 at 10:35; Status DC Acetaminophen/ Hydrocodone Bitart (Lortab 5/325) 1 tab PRN Q6HRS PRN PO PAIN MILD TO MOD Last administered on 08/10/16 09:42; Start 08/09/16 at 10:45 Vancomycin HCl 125 mg [id number] PO Last administered on 08/12/16 08:26; Start at 13:00 Iohexol (Omnipaque 300 Mg/ml) 75 ml 1X ONCE IV Last administered on at 15:10; Start 08/09/16 at 13:30; Stop 08/09/16 at 13:31; Status DC Iohexol (Omnipaque 240 Mg/ml) 50 ml 1X ONCE PO Last administered on at 15:11; Start 08/09/16 at 13:30; Stop 08/09/16 at 13:31; Status DC Info (Do NOT chart on this entry -- for MONITORING) 1 each PRN DAILY PRN MC SEE COMMENTS; Start 08/09/16 at 13:30; Stop 08/11/16 at 13:29; Status DC Potassium Chloride (Klor-Con) 40 meq 1X ONCE PO Last administered on 08/10/16 13:09; Start 08/10/16 at 13:00; Stop 08/10/16 at 13:01; Status DC Metronidazole 500 mg 500 mg Q8HRS PO Last administered on 08/12/16 05:51; Start 08/11/16 at 14:00 Ciprofloxacin Lactate (Cipro 400mg Premix) 200 ml @ 200 mls/hr Q12HR IV Last administered on 08/12/16t 08:26; Start 08/11/16 at 11:00 Active Scripts Active Reported Centrum Silver Tablet (Multivits-Min/Fa/Lycopene/Lut) 1 Each Tablet 1 Each PO DAILY Flonase Allergy Relief (Fluticasone Propionate) 9.9 Ml [place].susp 2 Sprays NS PRN Q6HRS Protonix (Pantoprazole Sodium) 40 Mg Tablet.dr 1 Tab PO DAILY Metoprolol Tartrate 25 Mg Tablet 0.5 Tab PO DAILYBFRSUP Escitalopram Oxalate 10 Mg Tablet 1 Tab PO DAILY Ondansetron Hcl 8 Mg Tablet 8 Mg PO BID PRN Zetia (Ezetimibe) 10 Mg Tablet 10 PO DAILY NITROGLYCERIN SubLingual (Nitroglycerin) 0.4 Mg Tab.subl 0.4 Mg SL PRN Q5MIN PRN Aspirin 81 Mg Tab.chew 81 Mg PO DAILY Isosorbide Mononitrate Er (Isosorbide Mononitrate) 30 Mg Tab.er.24h 60 Mg PO DAILY Crestor (Rosuvastatin Calcium) 40 Mg Tablet 40 Mg PO DAILY Vitals/I & O Vital Sign - Last 24 Hours 08/11/16 08/11/16 08/11/16 08/11/16 15:00 19:00 20:00 23:00 Temp 97.9 97.9 97.9 97.9 97.9 97.9 Pulse 67 81 70 Resp 18 B/P 89/49 105/59 103/72 Pulse Ox 98 96 96 O2 Delivery Room Air Room Air Room Air Room Air 08/12/16 08/12/16 08/12/16 08/12/16 03:00 07:00 08:00 11:00 Temp 97.5 97.5 97.5 97.5 97.5 97.5 Pulse 72 68 67 Resp 18 B/P 90/57 97/72 94/64 Pulse Ox 96 95 95 O2 Delivery Room Air Room Air Room Air Room Air Intake and Output 08/11/16 08/11/16 08/12/16 15:00 23:00 07:00 Intake Total 880 ml 300 ml 750 ml Balance 880 ml 300 ml 750 ml ANDREAS FORREST MD Aug 12, 2016 12:39
[2016-08-12 15:00] VITALS: BP 131/84
--- NOTE | 2016-08-12 15:57 | DISCH ---
DISCHARGE INSTRUCTIONS Condition on Discharge Condition on Discharge: Stable Activity After Discharge Activity Instructions for Disc: Activity as tolerated (prob return to work next week. call for note) Diet after Discharge Diet after Discharge: Cardiac (encourage fluids) Checks after Discharge Checks after discharge: Check blood press - daily Contacting the DRCrystal after DC Call your doctor for: If your condition worsens Follow-Up Follow up with: Dr Lamb next week. Dr Ponce ID in 2 weeks Follow Up With: Dr De Dios after finishes chemo or problems EMPERATRIZ DE DIOS MD Aug 12, 2016 15:57
[2016-08-12] MEDS ORDERED: Vancomycin Hcl PO (16:10)
[2016-08-12] MEDS ORDERED: CIPR250T30 PO (16:10)
--- NOTE | 2016-08-12 16:11 | PDOC ---
Provider Note Provider Note See discharge summary dictation #[id number] EMPERATRIZ DE DIOS MD Aug 12, 2016 16:11
--- NOTE | 2016-08-13 01:08 | DS ---
DATE OF DISCHARGE: 08/12/2016 ATTENDING PHYSICIAN: Dr. Emperatriz De Dios CHIEF COMPLAINT: Weakness. HISTORY OF PRESENT ILLNESS: The patient is a 60-year-old male who is still undergoing treatment for B cell lymphoma with chemotherapy. He has had C. diff in the past and has been treated prophylactically for that with his chemotherapy treatments. He started feeling weak on the day prior to admission. This became progressively worse, so he presented to the Emergency Room for further evaluation due to his concern for sepsis which he has had, episodes of neutropenic fever and sepsis with chemotherapy before he received his fourth round of chemotherapy approximately 1 week prior to the onset of symptoms. HOSPITAL COURSE: The patient was admitted. He was seen in consultation with Oncology, Dr. Lamb and Infectious Disease. He was initially placed on vancomycin and IV Zosyn. His antibiotics were then adjusted by Infectious Disease. He did have C. diff stool test that was positive. He also grew out E. coli in one of five bottles that were drawn at the time of admission. He was transitioned to Cipro. Urine culture was negative. He remained afebrile. He was receiving Granix. He had improvement of his WBC count from 0.4-10.5 at discharge. His renal function remained adequate. He was positive for C. diff as noted above. While in the hospital, his diarrhea improved. He was not having any fevers. He was tolerating his diet. PHYSICAL EXAMINATION: VITAL SIGNS: At the time of discharge, he was afebrile. His vital signs were stable. His blood pressure was somewhat low, but he had been that way throughout the hospitalization. His blood pressure medications were discontinued. GENERAL: He was alert and in no distress. CHEST: Clear to auscultation bilaterally. HEART: Had a regular rate and rhythm without murmur. ABDOMEN: Soft and minimally tender in the mid abdomen without any guarding or rebound. EXTREMITIES: Without edema. His stools decreased in frequency and were improving in consistency minimally. DISCHARGE DIAGNOSES: 1. Sepsis secondary to C. diff colitis. 2. Neutropenic fevers. 3. Hypotension with a history of hypertension. 4. Pancytopenia secondary to recent chemotherapy. 5. Depression which is stable. 6. History of coronary artery disease. 7. Hypokalemia which improved. 8. B-cell lymphoma, currently undergoing chemotherapy and is in between cycles at present. DISCHARGE DIET: Cardiac diet. The patient is encouraged to increase his fluid intake. DISCHARGE ACTIVITY: As tolerated. FOLLOWUP: The patient is to follow up with Dr. Lamb, Oncology in 1 week. He is to follow up with Dr. Ponce, Infectious Disease in 2 weeks. MEDICATIONS AT THE TIME OF DISCHARGE: Cipro 750 mg p.o. b.i.d. x 1 week, vancomycin 125 mg per 2.5 mL 125 mg p.o. q.i.d. for 3 weeks, then t.i.d. for 1 week, then b.i.d. for 4 weeks. Lexapro 10 mg p.o. daily, Zetia 10 mg p.o. daily, Flonase p.r.n., multivitamin 1 p.o. daily, Zofran 8 mg p.o. b.i.d. p.r.n. nausea, Protonix 40 mg p.o. daily, Crestor 40 mg p.o. daily. EMPERATRIZ DE DIOS MD DR: APRIL/dashawn JOB#: [id number] / [id number]
== END 2016-08-12 15:30 | disposition home or self-care (01) | DRG 871 ==
LOC: ER 17:43 → 6 SOUTH 18:53
PROVIDERS: ADMIT Family Medicine; ATTEND Family Medicine
DX: A41.51 Sepsis due to Escherichia coli [E. coli] (principal); D61.810 Antineoplastic chemotherapy induced pancytopenia; A04.7 Enterocolitis due to Clostridium difficile; C82.90 Follicular lymphoma, unspecified, unspecified site; C83.30 Diffuse large B-cell lymphoma, unspecified site; R65.20 Severe sepsis without septic shock; E78.5 Hyperlipidemia, unspecified; E87.6 Hypokalemia; F32.9 Major depressive disorder, single episode, unspecified; I10 Essential (primary) hypertension; I25.10 Atherosclerotic heart disease of native coronary artery without angina pectoris; K21.9 Gastro-esophageal reflux disease without esophagitis; M19.90 Unspecified osteoarthritis, unspecified site; R50.81 Fever presenting with conditions classified elsewhere; T45.1X5A Adverse effect of antineoplastic and immunosuppressive drugs, initial encounter; Z82.3 Family history of stroke; I25.2 Old myocardial infarction; Z82.49 Family history of ischemic heart disease and other diseases of the circulatory system; Z83.3 Family history of diabetes mellitus; Z87.891 Personal history of nicotine dependence; Z92.21 Personal history of antineoplastic chemotherapy; Z95.5 Presence of coronary angioplasty implant and graft; Z98.890 Other specified postprocedural states
CPT/HCPCS: 36415; 70450; 71010; 74177; 80048; 80061; 80076; 81001; 83605; 83690; 83880; 84484; 85007; 85027; 87040; 87086; 87205; 87324; 93005; 96365; J0744; J1442; J2270; J2543; J3370; J7030; J7040; J7050; Q9966; Q9967; 99285-25

== ENCOUNTER → 2016-09-25 | Outpatient (CLI) | payer OTHER ==
[~2016-09-25] MED LIST changes: +CIPR250T30 PO; +FLUT9.9S NS; +MULT-658 PO; +PANT40TA3 PO; +Vancomycin Hcl PO
--- NOTE | 2016-09-25 09:47 | RAD ---
FDG tumor localization scan, PET/CT, 09/25/2016: History: Follow-up lymphoma Following IV injection of 13.9 mCi of 18 F-FDG, imaging was performed from the skull base to the proximal thighs. The noncontrast CT component was performed for attenuation correction and anatomic localization purposes rather than for primary diagnosis. The patient's blood glucose level at the time of injection was 128 MG/DL. Comparison is made to a study from 07/17/2016. Physiologic activity is evident in the neck. No abnormal hypermetabolic process is seen in the mediastinum or lungs. Normal GI tract and urinary tract activity is present in the abdomen and pelvis. No hypermetabolic abnormality is seen in the abdomen or pelvis. Small retrocrural and periaortic lymph nodes seen on the previous study have decreased slightly in size. The largest of these measures approximately 12 mm in short axis dimension. They are not hypermetabolic. Incidental CT findings include the presence of a Port-A-Cath extending into the superior vena cava. Moderate coronary artery calcifications are present. A few scattered colonic diverticula are noted. IMPRESSION: No hypermetabolic adenopathy to suggest recurrent lymphoma.
== END | disposition home or self-care (01) ==
LOC: PETSC 07:17
PROVIDERS: ATTEND Internal Medicine Hematology & Oncology
DX: C83.31 Diffuse large B-cell lymphoma, lymph nodes of head, face, and neck (principal)
CPT/HCPCS: 78815; A9552

== ENCOUNTER → 2017-03-12 | Outpatient (CLI) | payer OTHER ==
[~2017-03-12] MED LIST changes: +ASPI-630 PO; -ASPI81TA2 PO; -ESCI10TA PO; +ESCITALOPRAM OX10 MG PO; +EZET10TA18 PO; -EZET10TA3 PO; +NITR0.4T22 SL; -NITR0.4T6 SL; -ONDA-36 PO; +ONDA8TAB14 PO; -UBID200C4 PO; +UBID200C7 PO
--- NOTE | 2017-03-12 14:38 | RAD ---
EXAM: PET/CT SKULL BASE TO MID THIGH. HISTORY: Restaging lymphoma. COMPARISON: Prior PET/CT September 2016. None. TECHNIQUE: CT was performed from the skull base through the mid thighs for the purposes of attenuation correction. 14.2 mCi F-18 fluorodeoxyglucose (FDG) was administered intravenously. After an uptake period, positron emission tomography was performed from the skull base through the mid thighs. The PET and CT data were fused and interpreted in combination a dedicated workstation. Blood glucose level was 103 mg/dL at the time of FDG administration. FINDINGS: Mean hepatic SUV: 3.6 Cardiac blood pool: 2.6 Head and neck: No suspicious hypermetabolic lymphadenopathy or mass. Chest: No suspicious hypermetabolic adenopathy or mass. Abdomen/pelvis: There is normal uptake in the kidneys and excretion into the renal collecting system. Development of hypermetabolic left inguinal lymph node measuring 11 mm (series 3/image 377) with maximum SUV 3.9. There is stable mildly enlarged periaortic and aortocaval lymph nodes at the level of the kidneys measuring up to 1.2 cm (series 3/image 238), previously 1.2 cm with maximum SUV of 2.3 just below the cardiac blood pool. There is a stable mildly prominent retrocrural lymph node measuring 0.7 cm short axis with maximum SUV 2.6. Musculoskeletal: No suspicious hypermetabolic activity. Uncorrected PET images: No additional significant finding. Additional CT findings: Right IJ chest port with distal tip terminating in the mid SVC. Three-vessel coronary artery calcifications. Abdominal aorta is normal in caliber with moderate aortoiliac calcified atheromatous disease. There is mild distal colonic diverticulosis without evidence for diverticulitis. Urinary bladder is decompressed with fatty deposition within the urinary bladder wall. IMPRESSION: 1. Development of mildly enlarged hypermetabolic left inguinal lymph node suspicious for recurrent lymphomatous involvement. Lymph node is amenable to percutaneous biopsy, if clinically indicated. 2. Stable retroperitoneal lymphadenopathy and mildly prominent retrocrural lymph node with no significant FDG uptake, likely treated lymphoma.
== END | disposition home or self-care (01) ==
LOC: PETSC 08:16
PROVIDERS: ATTEND Internal Medicine Hematology & Oncology
DX: C83.31 Diffuse large B-cell lymphoma, lymph nodes of head, face, and neck (principal); I25.10 Atherosclerotic heart disease of native coronary artery without angina pectoris; K57.30 Diverticulosis of large intestine without perforation or abscess without bleeding; N32.89 Other specified disorders of bladder; R59.1 Generalized enlarged lymph nodes
CPT/HCPCS: 78815; A9552

== ENCOUNTER → 2017-05-01 | Outpatient (CLI) | payer OTHER ==
--- NOTE | 2017-05-01 12:39 | KCIC ---
Clinical Indications: Dizziness, lightheadedness. Exam : Carotid Duplex with Grayscale Ultrasound and Spectral and Color Doppler Analysis: RS Compliance Statement - Stenosis calculations for CT, MR and conventional angiography are based upon measurement of the distal ICA diameter in accordance with the NASCET methodology. Stenosis calculations for carotid ultrasound studies are derived from validated velocity criteria which are known to correlate with the NASCET methodology. Comparison study: None available. Findings: The common, internal and external carotid arteries were examined by grayscale, color and spectral Doppler ultrasound. There is no evidence of atherosclerotic disease or significant stenosis in the visualized vessels. Flow in both vertebral arteries was antegrade and normal. The following are the velocities and ratios in the carotid arteries on both sides: RIGHT ICA PV: 100cm/sec RIGHT CCA PV: 100cm/sec RIGHT ICA ED: 28cm/sec RIGHT IC/CCPV: 1.0 RIGHT VERTEBRAL: antegrade flow RIGHT % STENOSIS: Less than 50 percent LEFT ICA PV: 102cm/sec LEFT CCA PV: 96cm/sec LEFT ICA ED: 29cm/sec LEFT IC/CCPV: 1.06 LEFT VERTEBRAL: antegrade flow LEFT % STENOSIS: Less than 50 percent <50% ICA Stenosis: PSV < 125cm/s (EDV < 40cm/s; SVR < 2.0) 50-69% ICA Stenosis: PSV < 125-229cm/s (EDV 40-99cm/s; SVR 2.0-3.9) >70% ICA Stenosis: PSV > 230cm/s (EDV >100cm/s; SVR >4.0) Impression: Normal bilateral carotid and vertebral artery spectral and color Doppler analysis exam. Electronically signed by: Obi Elena MD (05/01/2017 12:37 PM) [email or web address]
== END | disposition home or self-care (01) ==
LOC: KCIC US 08:33
PROVIDERS: ATTEND Family Medicine
DX: R42 Dizziness and giddiness (principal); I35.0 Nonrheumatic aortic (valve) stenosis
CPT/HCPCS: 93880

== ENCOUNTER → 2017-07-09 | Outpatient (CLI) | payer OTHER ==
--- NOTE | 2017-07-09 10:51 | RAD ---
FDG tumor localization scan (PET/CT), 07/09/2017: History: Restaging lymphoma Following IV injection of 14.7 mCi of 18 F-FDG, imaging was performed from the skull base to the proximal thighs. The noncontrast CT component was performed for attenuation correction and anatomic localization rather than for primary diagnosis. The patient's blood glucose level at the time of the injection was 114 MG/DL. Comparison is made to a study from 03/12/2017. Physiologic activity is evident in the neck. No hypermetabolic focus is identified in the chest. Normal urinary tract and GI tract activity is present in the abdomen and pelvis. Small retrocrural and para-aortic densities compatible with treated lymph nodes are unchanged. These areas do not demonstrate abnormal FDG uptake. The small hypermetabolic lymph node visualized at the left groin on the previous study has decreased in size and no longer demonstrates abnormal FDG uptake. No abnormal focus of FDG uptake is currently seen in the abdomen or pelvis. Incidental CT findings include the presence of a Port-A-Cath extending into the superior vena cava. Coronary artery calcifications are present. IMPRESSION: 1. Previously seen abnormal FDG uptake in a left inguinal lymph node has resolved. 2. No current PET evidence of recurrent lymphoma.
== END | disposition home or self-care (01) ==
LOC: PETSC 08:07
PROVIDERS: ATTEND Internal Medicine Hematology & Oncology
DX: C83.31 Diffuse large B-cell lymphoma, lymph nodes of head, face, and neck (principal); C85.90 Non-Hodgkin lymphoma, unspecified, unspecified site; I25.10 Atherosclerotic heart disease of native coronary artery without angina pectoris
CPT/HCPCS: 78815; A9552

== ENCOUNTER → 2018-06-10 | Outpatient (CLI) | payer OTHER ==
[~2018-06-10] MED LIST changes: +RANI150T21 PO; -RANI150T6 PO
--- NOTE | 2018-06-10 12:02 | RAD ---
FDG tumor localization scan, PET/CT, 06/10/2018: History: Follow-up lymphoma Following IV injection of 14.4 mCi of 18 F-FDG, imaging was performed from the skull base to the proximal thighs. The noncontrast CT component was performed for attenuation correction and anatomic localization purposes rather than for primary diagnosis. The patient's blood glucose level at the time of injection was 123 MG/DL. Comparison is made to a study from 07/09/2017. Physiologic activity is present in the neck. No abnormal FDG uptake is seen in the neck. No abnormal mediastinal or pulmonary FDG uptake is seen. Increased periarticular activity at the right shoulder is presumably arthritic. No axillary adenopathy is evident. Normal GI tract and urinary tract activity is present in the abdomen and pelvis. No hypermetabolic mass or adenopathy is seen. The inguinal regions are unremarkable. Incidental CT findings include the presence of a right Port-A-Cath extending into the superior vena cava. Scattered coronary artery calcifications are present. IMPRESSION: No FDG-PET evidence of recurrent lymphoma.
== END | disposition home or self-care (01) ==
LOC: PETSC 09:45
PROVIDERS: ATTEND Internal Medicine Hematology & Oncology
DX: C83.31 Diffuse large B-cell lymphoma, lymph nodes of head, face, and neck (principal); I25.10 Atherosclerotic heart disease of native coronary artery without angina pectoris
CPT/HCPCS: 78815; A9552

== ENCOUNTER → 2019-06-17 | Outpatient (CLI) | payer MEDICARE, OTHER ==
[~2019-06-17] MED LIST changes: -EZET10TA18 PO; +EZET10TA20 PO; -PANT40TA3 PO; +PANT40TA77 PO; +RANI-376 PO; -RANI150T21 PO
--- NOTE | 2019-06-17 15:36 | RAD ---
PET/CT imaging from the skull through the midthigh History: B cell Lymphoma. Restaging. Comparison: June 10, 2018. Technique: PET examination was performed from the skull base to the proximal thighs after intravenous administration of 15.78 mCi Fluorine [address] scan was performed for the purposes of localization and attenuation, not for primary diagnosis. Blood glucose level at time of injection was 117 mg/dl. PQRS Compliance Statement: One or more of the following individualized dose reduction techniques were utilized for this examination: 1. Automated exposure control 2. Adjustment of the mA and/or kV according to patient size 3. Use of iterative reconstruction technique Findings: Head and neck: No hypermetabolic activity is seen. No enlarged cervical lymphadenopathy is evident. CHEST: No enlarged thoracic lymphadenopathy is evident. No hypermetabolic activity is evident. No lung nodules are seen. Abdomen and pelvis: No enlarged abdominal or pelvic lymphadenopathy is evident. Physiologic activity is seen within the and GI tract and liver and spleen. No other hypermetabolic activity is seen. The spleen is not enlarged. MUSCULOSKELETAL: No hypermetabolic activity is evident. No lytic process is seen. Impression: No recurrent lymphoma. Calcified coronary artery disease.
== END | disposition home or self-care (01) ==
LOC: PETSC 07:25
PROVIDERS: ATTEND Internal Medicine Hematology & Oncology
DX: C83.31 Diffuse large B-cell lymphoma, lymph nodes of head, face, and neck (principal); I25.10 Atherosclerotic heart disease of native coronary artery without angina pectoris; Z85.89 Personal history of malignant neoplasm of other organs and systems
CPT/HCPCS: 78815; A9552

== ENCOUNTER → 2019-08-19 | Outpatient (CLI) | payer MEDICARE, OTHER ==
[~2019-08-19] MED LIST changes: -ONDA8TAB14 PO; +ONDA8TAB17 PO
--- NOTE | 2019-08-19 12:15 | KCIC ---
EXAM: Chest, 2 views. HISTORY: Dyspnea. COMPARISON: PET/CT dated 06/17/2019. FINDINGS: 2 views of the chest are obtained. There is no infiltrate, pleural effusion or pneumothorax. There is a stable prominent cardiac silhouette. IMPRESSION: No acute pulmonary finding. Electronically signed by: Brenda Neves MD (08/19/2019 12:12 PM) [facility]
== END | disposition home or self-care (01) ==
LOC: KCIC 10:04
PROVIDERS: ATTEND Family Medicine
DX: R06.00 Dyspnea, unspecified (principal)
CPT/HCPCS: 71046

== ENCOUNTER → 2020-02-17 | Outpatient (CLI) | payer MEDICARE, OTHER ==
[~2020-02-17] MED LIST changes: +IOHEXOL 240 MG/ML 50ML VIAL. PO ONE; +IOHEXOL 300 MG/ML 100ML VIAL. IV ONE
--- NOTE | 2020-02-17 15:04 | KCIC ---
CT scan of the abdomen and pelvis with contrast 02/17/2020 Clinical history: Abdominal pain. History of lymphoma. TECHNIQUE: After the oral and intravenous administration of contrast, contiguous, 5 mm axial sections were obtained through the abdomen and pelvis. 100 cc of Omnipaque 300 were administered intravenously during this examination. One or more of the following individualized dose reduction techniques were utilized for this study: 1. Automated exposure control. 2. Adjustment of the mA and/or kV according to patient size. 3. Use of iterative reconstruction technique. FINDINGS: Comparison is made to a PET/CT scan dated 06/17/2019. Images through the lung bases demonstrate mild cardiomegaly. Minimal dependent subsegmental atelectasis is seen bilaterally. The liver parenchyma has a decreased attenuation consistent with fatty infiltration. The spleen, pancreas, adrenal glands and kidneys are within normal limits. Atherosclerotic calcification of the abdominal aorta is seen. The abdominal aorta tapers normally. The gallbladder is well-distended. No free fluid or free air is seen within the abdomen. There is no evidence of bowel obstruction. The appendix is well-visualized and is within normal limits. Multiple diverticula are seen involving the colon, particularly the sigmoid colon. No inflammatory changes are seen in the adjacent fat. No retroperitoneal lymphadenopathy is noted. Images through the pelvis demonstrate the urinary bladder distended with urine. The prostate gland is mildly enlarged likely related to BPH. No free fluid is seen. No pelvic or inguinal adenopathy is noted. Very mild S-shaped curvature of the thoracolumbar spine is seen. Degenerative changes are seen involving the thoracic and throughout the lumbar spine along with both hips. IMPRESSION: No acute abnormality is seen. Electronically signed by: Jeramy Flower MD (02/17/2020 3:01 PM) [id number]
== END | disposition home or self-care (01) ==
LOC: KCIC CT 10:08
PROVIDERS: ATTEND Family Medicine
DX: K57.30 Diverticulosis of large intestine without perforation or abscess without bleeding (principal); N40.0 Benign prostatic hyperplasia without lower urinary tract symptoms; K82.8 Other specified diseases of gallbladder; I70.0 Atherosclerosis of aorta; M47.815 Spondylosis without myelopathy or radiculopathy, thoracolumbar region; M16.0 Bilateral primary osteoarthritis of hip; M43.8X5 Other specified deforming dorsopathies, thoracolumbar region; Z68.38 Body mass index [BMI] 38.0-38.9, adult
CPT/HCPCS: 74177; 82565; Q9966; Q9967

== ENCOUNTER → 2020-04-17 | Outpatient (CLI) | payer MEDICARE, OTHER ==
[~2020-04-17] MED LIST changes: -IOHEXOL 240 MG/ML 50ML VIAL. PO ONE; -IOHEXOL 300 MG/ML 100ML VIAL. IV ONE
--- NOTE | 2020-04-17 17:27 | KCIC ---
EXAM: Left knee, 5 views. HISTORY: Pain. COMPARISON: None. FINDINGS: 5 views of the left knee are obtained. There is mild to moderate tricompartmental spurring. There is a small joint effusion and small joint loose bodies. There is no fracture, dislocation or subluxation. IMPRESSION: 1. Mild to moderate tricompartmental osteoarthritis of the left knee with joint effusion and small joint loose bodies. 2. No acute osseous finding. Electronically signed by: Brenda Neves MD (04/17/2020 5:24 PM) [id number]
== END | disposition home or self-care (01) ==
LOC: KCIC 12:56
PROVIDERS: ATTEND Family Medicine
DX: M17.12 Unilateral primary osteoarthritis, left knee (principal); M25.462 Effusion, left knee; M76.892 Other specified enthesopathies of left lower limb, excluding foot
CPT/HCPCS: 73564

== ENCOUNTER → 2020-06-15 | Outpatient (CLI) | payer MEDICARE, OTHER ==
--- NOTE | 2020-06-15 14:38 | RAD ---
EXAM: Dual modality PET-CT Scan DATE: 06/15/2020 RADIOPHARMACEUTICAL: 11.6 mCi F-18 fluorodeoxyglucose (FDG) IV. CLINICAL HISTORY: Lymphoma restaging. COMPARISON: Abdomen and pelvis CT dated 02/17/2020 and PET/CT dated 06/17/2019. TECHNIQUE: Approximately 45 minutes after tracer administration, routine, attenuation-corrected Positron Emission Tomography (PET) images were obtained from the level of the base of the skull through the level of the mid thighs. Tomographic reconstructions are reviewed in coronal, transaxial and sagittal planes. Non-contrast CT imaging was performed for attenuation correction and localization purposes only. These images do not constitute a diagnostic-quality CT examination and were not used to diagnose disease independently of the PET images. The blood glucose level was 105 mg/dL at the time of FDG administration. *One or more of the following individualized dose reduction techniques were utilized for this examination: 1. Automated exposure control. 2. Adjustment of the mA and/or kV according to patient size. 3. Use of iterative reconstruction technique. FINDINGS: There is no lesion with suspicious abnormal radiotracer activity. There is expected physiologic radiotracer activity. The CT portion of the exam demonstrates no infiltrate or pleural effusion. There is posterior dependent and basilar atelectasis. There is a small left infrahilar pulmonary cyst or pneumatocele. There is coronary artery atherosclerosis. There is no mediastinal or hilar lymphadenopathy. The visualized portions the brain are unremarkable. There is no neck lymphadenopathy. The liver is unremarkable. The gallbladder, pancreas, spleen, adrenal glands and kidneys are unremarkable. No abnormally thickened or dilated loop of bowel is seen. There is colonic diverticulosis. There is prostatomegaly. There is aortic and aortic branch vessel atherosclerosis. There are small fat-containing inguinal hernias. There is a metallic clip within the right inguinal region. No pathologically enlarged mesenteric or retroperitoneal lymph node is seen. There is no suspicious or acute osseous finding. IMPRESSION: 1. No abnormal radiotracer activity to suggest malignancy. 2. Please refer to the above report for incidental findings regarding the non-PET portion of the exam. Electronically signed by: Brenda Neves MD (06/15/2020 2:35 PM) [id number]
== END ==
LOC: PETSC 08:55
PROVIDERS: ATTEND Internal Medicine Hematology & Oncology
DX: C83.31 Diffuse large B-cell lymphoma, lymph nodes of head, face, and neck (principal); I25.10 Atherosclerotic heart disease of native coronary artery without angina pectoris; K57.30 Diverticulosis of large intestine without perforation or abscess without bleeding; N40.0 Benign prostatic hyperplasia without lower urinary tract symptoms; K40.90 Unilateral inguinal hernia, without obstruction or gangrene, not specified as recurrent; J98.11 Atelectasis
CPT/HCPCS: 78815; A9552

== ENCOUNTER 2020-08-29 06:59 | Inpatient (IN) | payer MEDICARE, OTHER ==
[2020-08-29] VITALS (23 sets, daily range): BP systolic 95–152; BP diastolic 58–76
[~2020-08-29] VITALS: Ht 172.7 cm; Wt 99.1 kg
[~2020-08-29 06:59] MED LIST changes: -ISOS30TA4 PO; +ISOS30TA68 PO
[2020-08-29] MEDS ORDERED: PROPOFOL 100 ML IV PRN ×2 (07:45→15:30)
[2020-08-29 07:49] LABS: BASE EXCESS COOX -1 mmol/L (-3-3); HCO3 COOX 25 mmol/L (21-28); METHEMOGLOBIN 0.3 % (0.0-1.9); OXYHEMOGLOBIN 94.1 %; PCO2 COOX 49 mmHg (35-46); PO2 COOX 83 mmHg (65-108); SAT O2 COOX 95 % (92-99)
[2020-08-29] MEDS ORDERED: MIDAZOLAM HCL/PF 5 MG/5 ML VIAL. NS ONE (08:00)
[2020-08-29] MEDS ORDERED: MIDAZOLAM 100mg/100ml NS BAG 100 ML IV ONE (08:00)
[2020-08-29 08:01] LABS: BILIRUBIN,URINE NEGATIVE (NEG); CLARITY,URINE TURBID; COLOR,URINE AMBER; NITRITE,URINE NEGATIVE (NEG); PROTEIN,URINE 100 mg/dL (NEG-TRACE)
[2020-08-29 08:08] LABS: CALCIUM 8.3 mg/dL (8.5-10.1); CREATININE 2.1 mg/dL (0.7-1.3); GFR 31.8; POTASSIUM 4.9 mmol/L (3.5-5.1)
[2020-08-29 08:13] LABS: BACTERIA,URINE 0 /HPF (0-FEW); RBC,URINE 0 /HPF (0-2); WBC,URINE 0 /HPF (0-4)
[2020-08-29 08:14] LABS: ALBUMIN 2.8 g/dL (3.4-5.0); ALBUMIN/GLOBULIN RATIO 0.8 (1.0-1.7); C-REACTIVE PROTEIN 120.5 mg/L (0-3.3); TOTAL PROTEIN 6.3 g/dL (6.4-8.2)
[2020-08-29] MEDS ORDERED: cefTRIAXone IV Push 1 GM VIAL. IVP ONE (08:15)
[2020-08-29] MEDS ORDERED: DEXAMETHASONE SOD PHOS 4 MG/ML VIAL IVP ONE (08:15)
--- NOTE | 2020-08-29 08:16 | RAD ---
EXAM: XR CHEST 1V INDICATION: Reason: intubation / Spl. Instructions: / History: . TECHNIQUE: Single view COMPARISON: 08/19/2019 FINDINGS: Patient is intubated with ET tube terminating 3.7 cm above the odin. An enteric tube is present, passing below the diaphragms. The heart size is normal. The great vessels appear unremarkable. There is no hilar or mediastinal mass. The lungs are clear. There is no pleural effusion or pneumothorax. There are no significant osseous abnormalities. IMPRESSION: Satisfactory positioning of the endotracheal tube and enteric tube. No active cardiopulmonary disease noted. Electronically signed by: Meka Mccrary MD (08/29/2020 8:14 AM) [id number]
[2020-08-29 08:25] LABS: BASO % 0 % (0-3); EOS % 0 % (0-3); HEMATOCRIT 32.3 % (39.0-53.0); HEMOGLOBIN 10.5 g/dL (13.0-17.5); LYMPH # 0.7 x10^3/uL (1.0-4.8); LYMPH % 5 % (24-48); MEAN CORPUSCULAR HEMOGLOBIN 30 pg (25-35); MEAN CORPUSCULAR HGB CONC 32 g/dL (31-37); MEAN CORPUSCULAR VOLUME 94 fL (79-100); MONO # 1.2 x10^3/uL (0.0-1.1); MONO % 8 % (0-9); NEUT # 13.3 x10^3/uL (1.8-7.7); NEUT % 87 % (31-73); PLATELET COUNT 107 x10^3/uL (140-400); RED BLOOD COUNT 3.45 x10^6/uL (4.30-5.70); RED CELL DISTRIBUTION WIDTH 13.7 % (11.5-14.5); WHITE BLOOD COUNT 15.2 x10^3/uL (4.0-11.0)
[2020-08-29] MEDS ORDERED: NOREPINEPHRINE VIAL 8 MG in IV DEXTROSE 5% 250 ML IV ONE (08:30)
[2020-08-29] MEDS ORDERED: IV NORMAL SALINE 1000ML BAG 1,000 ML IV ONE ×2 (08:30)
[2020-08-29] MEDS ORDERED: CHLORHEXIDINE 0.12% 15 ML MOUTHWASH. MM SCH (09:00)
[2020-08-29] MEDS ORDERED: NALOXONE 2 MG/2 ML DISP.SYRIN. IV ONE (09:00)
[2020-08-29] MEDS ORDERED: SUCCINYLCHOLINE 200 MG/10 ML VIAL. IV ONE (09:00)
[2020-08-29] MEDS ORDERED: ETOMIDATE 20 MG/10 ML VIAL. IV ONE (09:00)
[2020-08-29 09:04] LABS: BASE EXCESS ABG -3 mmol/L (-3-3); HCO3 ABG 22 mmol/L (21-28); PCO2 ABG 42 mmHg (35-46); PO2 ABG 103 mmHg (65-108); SAT O2 ABG 97 % (92-99)
[2020-08-29 09:07] LABS: FIO2 ABG 60% VENT
[2020-08-29 09:09] LABS: % BANDS 7 % (0-9); % LYMPHS 5 % (24-48); % MONOS 3 % (0-10); % SEGS 85 % (35-66)
[2020-08-29 09:10] LABS: ANISOCYTOSIS PRESENT; PLT ESTIMATE ADEQUATE (ADEQUATE)
--- NOTE | 2020-08-29 10:20 | RAD ---
EXAM: CT Head without IV contrast INDICATION: Reason: obtunded, recent surgery, hypoxic / Spl. Instructions: / History: TECHNIQUE: Multi-detector row CT images were obtained of the head without the use of IV contrast. All CT scans performed at this facility utilize dose optimization techniques as appropriate to the exam, including the following: Automated exposure control and adjustment of the mA and/or KV according to patient size (this includes techniques or standardized protocols for targeted exams where dose is ind ication/reason for exam). COMPARISON: Noncontrast head CT 08/08/2016 FINDINGS: BRAIN PARENCHYMA: No evidence of acute intraparenchymal hemorrhage or infarct. No abnormal parenchyma l density or mass. VENTRICLES & EXTRA-AXIAL SPACES: Ventricles are within normal limits. Basilar cisterns are patent. N o pathologic extra-axial fluid collection or mass. ORBITS: Orbital contents are unremarkable. SINUSES: Paranasal sinus mucosal thickening is present with frothy fluid in the bilateral maxillary antra. The mastoids are clear. OSSEOUS & SOFT TISSUES: Calvarium and skull base are intact. IMPRESSION: 1. No acute intracranial pathology. 2. Bilateral acute maxillary sinusitis. EXAM: CT Chest without IV contrast INDICATION: Reason: obtunded, recent surgery, hypoxic / Spl. Instructions: / History: TECHNIQUE: Multi-detector row CT images were acquired from the thoracic inlet through the upper abdo men without the use of IV contrast. Sagittal and coronal images were acquired from the transaxial any a. All CT scans performed at this facility utilize dose optimization techniques as appropriate to the exam, including the following: Automated exposure control and adjustment of the mA and/or KV accordi ng to patient size (this includes techniques or standardized protocols for targeted exams where dose is indication/reason for exam). COMPARISON: Chest x-ray of 08/29/2020 at 7:34 AM FINDINGS: The absence of IV contrast limits evaluation of soft tissue pathology. CARDIOVASCULAR: Multivessel coronary calcifications. MEDIASTINUM & PRESTON: Enteric tube terminates in the distal stomach. Patient is intubated and ET tube t erminates just above the odin. LUNGS: Lungs show mild bibasilar atelectasis in the lower lobes in the dependent aspects of the bilat eral upper lobes. No lobar consolidation are otherwise pulmonary infiltrates. PLEURAL SPACE: No pleural effusions or pneumothorax. OSSEOUS & SOFT TISSUE: Unremarkable ABDOMEN: The visualized portions of the upper abdomen are unremarkable. IMPRESSION: Endotracheal intubation and enteric tube placement with mild bibasilar atelectasis and multivessel co ronary calcifications but no acute cardiopulmonary process otherwise shown on noncontrast chest CT. Electronically signed by: Meka Mccrary MD (08/29/2020 10:17 AM) [id number]
--- NOTE | 2020-08-29 11:34 | ED.ADGEN ---
Past Medical History Past Medical History: CAD, Hypertension, Immunosuppression, Other Additional Past Medical Histor: lymphoma Past Surgical History: Other Additional Past Surgical Histo: left rotater cuff, port right chest for chemo, LT KNEE Smoking Status: Former Smoker Alcohol Use: Occasionally Drug Use: None General Adult EDM: Chief Complaint: DYSPNEA/RESPIRATORY DISTRESS HPI: HPI: Patient is a 64-year-old male who presents to the emergency room with altered mental status. According to report patient had surgery earlier this week for knee replacement. This morning his family went into check on him and he was unresponsive. They were unsure whether or not he quit taking his morphine yesterday as he was initially instructed to do and start his new medication or not. Patient is unable to provide any history. According to EMS patient was hypoxic upon their arrival with a pulse ox in the 70s. They did give him 2 of Narcan but were unsuccessful at getting him awake. Review of Systems: Review of Systems: Complete ROS is negative unless otherwise documented in HPI Current Medications: Current Medications Medications (Trade) Dose Ordered Sig/Gloria Start Time Stop Time Status Last Admin Dose Admin Ceftriaxone Sodium (Rocephin) 1 gm 1X ONCE 08/29/20 08:15 08/29/20 08:16 DC 08/29/20 08:36 1 GM Chlorhexidine Gluconate (Peridex) 15 ml BID 08/29/20 09:00 08/29/20 19:21 DC Dexamethasone Sodium Phosphate (Decadron) 10 mg 1X ONCE 08/29/20 08:15 08/29/20 08:16 DC 08/29/20 08:36 10 MG Etomidate (Amidate) 30 mg 1X ONCE 08/29/20 09:00 08/29/20 09:01 DC 08/29/20 08:55 30 MG Midazolam HCl (Versed) 5 mg 1X ONCE 08/29/20 08:00 08/29/20 08:01 DC 08/29/20 08:32 5 MG Naloxone HCl (NARCAN 2mg SYRINGE) 4 mg 1X ONCE 08/29/20 09:00 08/29/20 09:01 DC 08/29/20 08:53 4 MG Norepinephrine Bitartrate 8 mg/ Dextrose 258 ml @ 21.092 mls/ hr 1X ONCE 08/29/20 08:30 08/29/20 17:41 DC 08/29/20 08:37 21.092 MLS/HR Propofol 100 ml @ 0 mls/hr CONT PRN 08/29/20 07:45 08/29/20 07:56 DC Sodium Chloride 1,000 ml @ 1,000 mls/hr 1X ONCE 08/29/20 08:30 08/29/20 09:29 DC 08/29/20 08:15 1,000 MLS/HR Succinylcholine Chloride (Anectine) 200 mg 1X ONCE 08/29/20 09:00 08/29/20 09:01 DC 08/29/20 08:54 200 MG Allergies: Allergies: Allergies Coded Allergies Type Severity Reaction Last Updated Verified No Known Drug Allergies 04/28/16 No Physical Exam: PE: General: Obtunded, snoring respirations, ill-appearing HEENT: Atraumatic, EOMI, PERRL, airway patent, moist oral mucosa Neck: Supple, trachea midline Respiratory: Decreased breath sounds bilaterally with diffuse crackles, snoring respirations CV: Tachycardic, no murmur, cap refill <2 GI: Soft, nondistended, nontender, no masses MSK: Left knee surgical dressing in place Skin: Warm, dry, intact Neuro: GCS of 4 Current Patient Data: Labs: Laboratory Tests Test 08/29/20 07:35 08/29/20 07:37 08/29/20 07:40 08/29/20 09:05 O2 Saturation 95 % (92-99) 97 % (92-99) Arterial Blood pH 7.33 (7.35-7.45) L 7.34 (7.35-7.45) L Arterial Blood pCO2 at Patient Temp 49 mmHg (35-46) H 42 mmHg (35-46) Arterial Blood pO2 at Patient Temp 83 mmHg (65-108) 103 mmHg (65-108) Arterial Blood HCO3 25 mmol/L (21-28) 22 mmol/L (21-28) Arterial Blood Base Excess -1 mmol/L (-3-3) -3 mmol/L (-3-3) Oxyhemoglobin 94.1 % Methemoglobin 0.3 % (0.0-1.9) Carbon Monoxide, Quantitative 0.6 % (0.0-1.9) FiO2 8l nc 60% vent Urine Collection Type U cath Urine Color Shanel Urine Clarity Turbid Urine pH 6.0 (<5.0-8.0) Urine Specific [place] 1.015 (1.000-1.030) Urine Protein 100 mg/dL (NEG-TRACE) Urine Glucose (UA) Negative mg/dL (NEG) Urine Ketones (Stick) Negative mg/dL (NEG) Urine Blood Negative (NEG) Urine Nitrite Negative (NEG) Urine Bilirubin Negative (NEG) Urine Urobilinogen Dipstick 1.0 mg/dL (0.2 mg/dL) Urine Leukocyte Esterase Negative (NEG) Urine RBC 0 /HPF (0-2) Urine WBC 0 /HPF (0-4) Urine Squamous Epithelial Cells Few /LPF Urine Bacteria 0 /HPF (0-FEW) Urine Opiates Screen Pos (NEG) Urine Methadone Screen Neg (NEG) Urine Barbiturates Neg (NEG) Urine Phencyclidine Screen Neg (NEG) Urine Amphetamine/Methamphetamine Neg (NEG) Urine Benzodiazepines Screen Pos (NEG) Urine Cocaine Screen Neg (NEG) Urine Cannabinoids Screen Neg (NEG) Urine Ethyl Alcohol Neg (NEG) White Blood Count 15.2 x10^3/uL (4.0-11.0) H Red Blood Count 3.45 x10^6/uL (4.30-5.70) L Hemoglobin 10.5 g/dL (13.0-17.5) L Hematocrit 32.3 % (39.0-53.0) L Mean Corpuscular Volume 94 fL (79-100) Mean Corpuscular Hemoglobin 30 pg (25-35) Mean Corpuscular Hemoglobin Concent 32 g/dL (31-37) Red Cell Distribution Width 13.7 % (11.5-14.5) Platelet Count 107 x10^3/uL (140-400) L Neutrophils (%) (Auto) 87 % (31-73) H Lymphocytes (%) (Auto) 5 % (24-48) L Monocytes (%) (Auto) 8 % (0-9) Eosinophils (%) (Auto) 0 % (0-3) Basophils (%) (Auto) 0 % (0-3) Neutrophils # (Auto) 13.3 x10^3/uL (1.8-7.7) H Lymphocytes # (Auto) 0.7 x10^3/uL (1.0-4.8) L Monocytes # (Auto) 1.2 x10^3/uL (0.0-1.1) H Eosinophils # (Auto) 0.0 x10^3/uL (0.0-0.7) Basophils # (Auto) 0.0 x10^3/uL (0.0-0.2) Segmented Neutrophils % 85 % (35-66) H Band Neutrophils % 7 % (0-9) Lymphocytes % 5 % (24-48) L Monocytes % 3 % (0-10) Platelet Estimate Adequate (ADEQUATE) Anisocytosis Present Macrocytosis Present Sodium Level 138 mmol/L (136-145) Potassium Level 4.9 mmol/L (3.5-5.1) Chloride Level 102 mmol/L (98-107) Carbon Dioxide Level 28 mmol/L (21-32) Anion Gap 8 (6-14) Blood Urea Nitrogen 22 mg/dL (8-26) Creatinine 2.1 mg/dL (0.7-1.3) H Estimated GFR (Cockcroft-Gault) 31.8 BUN/Creatinine Ratio 10 (6-20) Glucose Level 130 mg/dL (70-99) H Lactic Acid Level 1.7 mmol/L (0.4-2.0) Calcium Level 8.3 mg/dL (8.5-10.1) L Total Bilirubin 1.0 mg/dL (0.2-1.0) Aspartate Amino Transferase (AST) 70 U/L (15-37) H Alanine Aminotransferase (ALT) 76 U/L (16-63) H Alkaline Phosphatase 65 U/L (46-116) Lactate Dehydrogenase 337 U/L (85-227) H Troponin I Quantitative 0.118 ng/mL (0.000-0.055) C-Reactive Protein, Quantitative 120.5 mg/L (0-3.3) H SA-Tnc-G-Type Natriuretic Peptide 1550 pg/mL (0-124) H Total Protein 6.3 g/dL (6.4-8.2) L Albumin 2.8 g/dL (3.4-5.0) L Albumin/Globulin Ratio 0.8 (1.0-1.7) L Test 08/29/20 09:10 Coronavirus (PCR) Not detected (Not Detected) Laboratory Tests 08/29/20 07:40 Laboratory Tests 08/29/20 07:40 Microbiology 08/29/20 Blood Culture - Preliminary, Resulted NO GROWTH AFTER 2 DAYS Vital Signs: Vital Signs Date Time Temp Pulse Resp B/P (MAP) Pulse Ox O2 Delivery O2 Flow Rate FiO2 08/29/20 11:22 77 22 148/84 (105) 98 Ventilator 08/29/20 07:24 15.0 08/29/20 07:00 98.3 98.3 EKG: EKG: [] Heart Score: Risk Factors: Risk Factors: DM, Current or recent (<one month) smoker, HTN, HLP, family history of CAD, obesity. Risk Scores: Score 0 - 3: 2.5% MACE over next 6 weeks - Discharge Home Score 4 - 6: 20.3% MACE over next 6 weeks - Admit for Clinical Observation Score 7 - 10: 72.7% MACE over next 6 weeks - Early Invasive Strategies Radiology/Procedures: Radiology/Procedures: [] Course & Med Decision Making: Course & Med Decision Making Pertinent Labs and Imaging studies reviewed. (See chart for details) Patient is a 64-year-old male who presents to the emergency room with altered mental status. Patient was hypoxic upon EMS arrival. He was given 2 of Narcan prior to arrival and we gave him 4 of Narcan here. He did not have any response to this. Patient was intubated for airway protection. Is unclear at this time if patient's symptoms are due to hypercapnia versus infection versus intracranial bleed versus accidental opiate overdose. Patient did have white fluid coming out of his vocal cords during intubation. CT chest and CT head were negative. This is likely due to opiates but it remains unclear. Covid swab is pending. Patient will be admitted to the ICU for further care. Pulmonology will be consulted. Yael Disclaimer: Yael Disclaimer: This electronic medical record was generated, in whole or in part, using a voice recognition dictation system. Departure Departure Impression: Primary Impression: Acute respiratory failure with hypoxia Additional Impression: Altered mental status Disposition: 09 ADMITTED INPT THIS HOSP Condition: GUARDED Referrals: UNKNOWN PCP NAME (PCP) Critical Care Time Critical Care: Authorized and Performed by: Roberto Gruber MD Total critical care time: approximately 50 minutes Due to a high probability of clinically significant, life threatening deterioration, the patient required my highest level of preparedness to intervene emergently and I personally spent this critical care time directly and personally managing the patient. This critical care time included obtaining a history; examining the patient; pulse oximetry; ventilator management if necessary; ordering and review of studies; arranging urgent treatment with development of a management plan; evaluation of patient's response to treatment; frequent reassessment; discussion with patient/family; and, discussions with other providers. This critical care time was performed to assess and manage the high probability of imminent, life-threatening deterioration that could result in multi-organ failure. It was exclusive of separately billable procedures and treating other patients and teaching time. Please see MDM section and the rest of the note for further information on patient assessment and treatment. PROCEDURE Procedure Intubation Performed by: Roberto Gruber MD Consent: Verbal consent not obtained. The procedure was performed in an emergent situation. Required items: required blood products, implants, devices, and special equipment available Patient identity confirmed: arm band Time out: Immediately prior to procedure a "time out" was called to verify the correct patient, procedure, equipment, child support case officer and site/side marked as required. Indications: respiratory failure and airway protection Intubation method: direct Patient status: paralyzed (RSI) Preoxygenation: Nasal cannula Sedatives: etomidate Paralytic: succinylcoline Laryngoscope size: Mac 4 Tube size: 8 mm Tube type: cuffed Number of attempts: 2 Cords visualized: yes Post-procedure assessment: chest rise, BS = bilaterally none over epigastrum, +CO2 detector Breath sounds: equal and absent over the epigastrium Cuff inflated: yes Tube secured with: adhesive tape Chest x-ray interpreted by me. Chest x-ray findings: endotracheal tube in appropriate position Patient tolerance: Patient tolerated the procedure well with no immediate complications. Problem Qualifiers ROBERTO GRUBER MD Aug 29, 2020 11:34
--- NOTE | 2020-08-29 11:54 | PDOC1 ---
History and Physical Date of Admission Date of Admission DATE: 08/29/20 TIME: 11:53 Identification/Chief Complaint Chief Complaint Unresponsive, respiratory failure Source Source: Caregiver, Chart review History of Present Illness History of Present Illness Mr Perales is a 64yo M w/ PMHx CAD, HTN, lymphoma who presents to ED via EMS. His found him unresponsive this morning. He received 2 mL of Narcan by the EMS. In ED he was unresponsive as well. Received another 4 mL narcan in the ER. He was minimally responsive, was intubated for airway protection. He had a recent left knee arthroplasty, s/p left TKA on 08/20/2020, was discharged 08/22/2020 at [facility]. He did stay 1 additional day due to concern for "deeper nerve block". His notes he was confused and had a tremor in his right hand and has been acting strangely since discharge. He was taking morphine as well as hydrocodone and when he was confused on 08/28/20 his MS contin was stopped and changed to hydrocodone. Of note he also started xanax prior to the surgery due to anxiety about the surgery. ABG with pH of 7.33, pCO2 of 49 and a pO2 of 83 on 8 liters. After 60% FiO2 and PEEP of 8 a repeat ABG showed pH of 7.34, pCO2 down to 42, pO2 of 103. CT head negative for any intracranial abnormalities. Venous Dopplers were negative for DVT. CT chest that showed atelectasis, no contrast administered due to renal insufficiency. Other labs remarkable for WBC 15.2, Hb 10.5, platelets 107. NA 138, K4.9, BUN 22, CR 2.1, glucose 130, calcium 8.3, albumin 2.8, AST 70, ALT 76, LDH 337, CRP 120, BNP 1550, troponin 0.118. UDS positive for opioids and xanax. Admitted to ICU on ventilator for further care. Past Medical History Cardiovascular: CAD, HTN, PR, Hyperlipidemia Pulmonary: Other GI: Constipation Heme/Onc: Cancer Hepatobiliary: No pertinent hx Psych: No pertinent hx Musculoskeletal: Osteoarthritis Rheumatologic: No pertinent hx Infectious disease: Other Renal/: UTI Endocrine: No pertinent hx Past Surgical History Past Surgical History: Arthroscopy, Total knee replacement (Left), Other Family History Family History: Cancer, Diabetes, Other Social History Smoke: Quit ALCOHOL: occassional Drugs: None Current Problem List Problem List Problems Medical Problems: (1) Acute respiratory failure with hypoxia Status: Acute (2) Altered mental status Status: Acute Current Medications Current Medications Current Medications Ceftriaxone Sodium (Rocephin) 1 gm 1X ONCE IVP Last administered on 08/29/20at 08:36; Start 08/29/20 at 08:15; Stop 08/29/20 at 08:16; Status DC Dexamethasone Sodium Phosphate (Decadron) 10 mg 1X ONCE IVP Last administered on 08/29/20at 08:36; Start 08/29/20 at 08:15; Stop 08/29/20 at 08:16; Status DC Propofol 100 ml @ 0 mls/hr CONT PRN IV PER PROTOCOL; Start 08/29/20 at 07:45; Stop 08/29/20 at 07:56; Status DC Chlorhexidine Gluconate (Peridex) 15 ml BID MM ; Start 08/29/20 at 09:00 Midazolam HCl 100 ml @ 0 mls/hr 1X ONCE IV Last administered on 08/29/20at 09:08; Start 08/29/20 at 08:00; Stop 08/29/20 at 08:01; Status DC Midazolam HCl (Versed) 5 mg 1X ONCE NS Last administered on 08/29/20at 08:32; Start 08/29/20 at 08:00; Stop 08/29/20 at 08:01; Status DC Norepinephrine Bitartrate 8 mg/ Dextrose 258 ml @ 21.092 mls/ hr 1X ONCE IV Last administered on 08/29/20at 08:37; Start 08/29/20 at 08:30; Stop 08/29/20 at 20:43 Sodium Chloride 1,000 ml @ 1,000 mls/hr 1X ONCE IV Last administered on 08/29/20at 07:50; Start 08/29/20 at 08:30; Stop 08/29/20 at 09:29; Status DC Sodium Chloride 1,000 ml @ 1,000 mls/hr 1X ONCE IV Last administered on 08/29/20at 08:15; Start 08/29/20 at 08:30; Stop 08/29/20 at 09:29; Status DC Naloxone HCl (NARCAN 2mg SYRINGE) 4 mg 1X ONCE IV Last administered on 08/29/20at 08:53; Start 08/29/20 at 09:00; Stop 08/29/20 at 09:01; Status DC Etomidate (Amidate) 30 mg 1X ONCE IV Last administered on 08/29/20at 08:55; Start 08/29/20 at 09:00; Stop 08/29/20 at 09:01; Status DC Succinylcholine Chloride (Anectine) 200 mg 1X ONCE IV Last administered on 08/29/20at 08:54; Start 08/29/20 at 09:00; Stop 08/29/20 at 09:01; Status DC Active Scripts Active Cipro (Ciprofloxacin Hcl) 250 Mg Tablet 750 Mg PO BID [Vancomycin Hcl] 125 MG/2.5 ML Solution 125 Mg PO [id number] Days 125mg po qid x 3 weeks then 125mg po tid x 1 week then 125mg po bid x 4 weeks Reported Centrum Silver Tablet (Multivits-Min/Fa/Lycopene/Lut) 1 Each Tablet 1 Each PO DAILY Flonase Allergy Relief (Fluticasone Propionate) 9.9 Ml [place].susp 2 Sprays NS PRN Q6HRS Protonix (Pantoprazole Sodium) 40 Mg Tablet.dr 1 Tab PO DAILY Escitalopram Oxalate 10 Mg Tablet 1 Tab PO DAILY Ondansetron Hcl 8 Mg Tablet 8 Mg PO BID PRN Zetia (Ezetimibe) 10 Mg Tablet 10 PO DAILY Crestor (Rosuvastatin Calcium) 40 Mg Tablet 40 Mg PO DAILY Allergies Allergies: Coded Allergies: No Known Drug Allergies (Unverified , 04/28/16) ROS Review of System Unable to obtain, unresponsive on ventilator Physical Exam General: Other (Intubated, sedated) HEENT: Atraumatic, PERRLA, EOMI, Mucous membr. moist/pink Lungs: Clear to auscultation, Normal air movement, Other Heart: S1S2, RRR, no thrills, no rubs, no gallops, no murmurs Abdomen: Normal bowel sounds, Soft, No tenderness, No hepatosplenomegaly, No masses Rectal Exam: not examined Extremities: No clubbing, No cyanosis, No edema, Normal pulses, Other (Left knee with compressive dressing in place) Skin: No rashes, No breakdown, No significant lesion Neuro: Reflexes 2+ Psych/Mental Status: Other (Sedated, ventilated) Vitals Vitals Vital Signs Date Time Temp Pulse Resp B/P (MAP) Pulse Ox O2 Delivery O2 Flow Rate FiO2 08/29/20 10:08 80 22 126/72 (90) 98 Ventilator 08/29/20 07:24 15.0 08/29/20 07:00 98.3 98.3 Labs Labs Laboratory Tests Test 08/29/20 07:35 08/29/20 07:37 08/29/20 07:40 08/29/20 09:05 O2 Saturation 95 % (92-99) 97 % (92-99) Arterial Blood pH 7.33 (7.35-7.45) 7.34 (7.35-7.45) Arterial Blood pCO2 at Patient Temp 49 mmHg (35-46) 42 mmHg (35-46) Arterial Blood pO2 at Patient Temp 83 mmHg (65-108) 103 mmHg (65-108) Arterial Blood HCO3 25 mmol/L (21-28) 22 mmol/L (21-28) Arterial Blood Base Excess -1 mmol/L (-3-3) -3 mmol/L (-3-3) Oxyhemoglobin 94.1 % Methemoglobin 0.3 % (0.0-1.9) Carbon Monoxide, Quantitative 0.6 % (0.0-1.9) FiO2 8l nc 60% vent Urine Collection Type U cath Urine Color Shanel Urine Clarity Turbid Urine pH 6.0 (<5.0-8.0) Urine Specific [place] 1.015 (1.000-1.030) Urine Protein 100 mg/dL (NEG-TRACE) Urine Glucose (UA) Negative mg/dL (NEG) Urine Ketones (Stick) Negative mg/dL (NEG) Urine Blood Negative (NEG) Urine Nitrite Negative (NEG) Urine Bilirubin Negative (NEG) Urine Urobilinogen Dipstick 1.0 mg/dL (0.2 mg/dL) Urine Leukocyte Esterase Negative (NEG) Urine RBC 0 /HPF (0-2) Urine WBC 0 /HPF (0-4) Urine Squamous Epithelial Cells Few /LPF Urine Bacteria 0 /HPF (0-FEW) White Blood Count 15.2 x10^3/uL (4.0-11.0) Red Blood Count 3.45 x10^6/uL (4.30-5.70) Hemoglobin 10.5 g/dL (13.0-17.5) Hematocrit 32.3 % (39.0-53.0) Mean Corpuscular Volume 94 fL (79-100) Mean Corpuscular Hemoglobin 30 pg (25-35) Mean Corpuscular Hemoglobin Concent 32 g/dL (31-37) Red Cell Distribution Width 13.7 % (11.5-14.5) Platelet Count 107 x10^3/uL (140-400) Neutrophils (%) (Auto) 87 % (31-73) Lymphocytes (%) (Auto) 5 % (24-48) Monocytes (%) (Auto) 8 % (0-9) Eosinophils (%) (Auto) 0 % (0-3) Basophils (%) (Auto) 0 % (0-3) Neutrophils # (Auto) 13.3 x10^3/uL (1.8-7.7) Lymphocytes # (Auto) 0.7 x10^3/uL (1.0-4.8) Monocytes # (Auto) 1.2 x10^3/uL (0.0-1.1) Eosinophils # (Auto) 0.0 x10^3/uL (0.0-0.7) Basophils # (Auto) 0.0 x10^3/uL (0.0-0.2) Segmented Neutrophils % 85 % (35-66) Band Neutrophils % 7 % (0-9) Lymphocytes % 5 % (24-48) Monocytes % 3 % (0-10) Platelet Estimate Adequate (ADEQUATE) Anisocytosis Present Macrocytosis Present Sodium Level 138 mmol/L (136-145) Potassium Level 4.9 mmol/L (3.5-5.1) Chloride Level 102 mmol/L (98-107) Carbon Dioxide Level 28 mmol/L (21-32) Anion Gap 8 (6-14) Blood Urea Nitrogen 22 mg/dL (8-26) Creatinine 2.1 mg/dL (0.7-1.3) Estimated GFR (Cockcroft-Gault) 31.8 BUN/Creatinine Ratio 10 (6-20) Glucose Level 130 mg/dL (70-99) Lactic Acid Level 1.7 mmol/L (0.4-2.0) Calcium Level 8.3 mg/dL (8.5-10.1) Total Bilirubin 1.0 mg/dL (0.2-1.0) Aspartate Amino Transf (AST/SGOT) 70 U/L (15-37) Alanine Aminotransferase (ALT/SGPT) 76 U/L (16-63) Alkaline Phosphatase 65 U/L (46-116) Lactate Dehydrogenase 337 U/L (85-227) Troponin I Quantitative 0.118 ng/mL (0.000-0.055) C-Reactive Protein, Quantitative 120.5 mg/L (0-3.3) TI-Ltt-Z-Type Natriuretic Peptide 1550 pg/mL (0-124) Total Protein 6.3 g/dL (6.4-8.2) Albumin 2.8 g/dL (3.4-5.0) Albumin/Globulin Ratio 0.8 (1.0-1.7) Laboratory Tests Test 08/29/20 07:35 08/29/20 07:37 08/29/20 07:40 08/29/20 09:05 O2 Saturation 95 % (92-99) 97 % (92-99) Arterial Blood pH 7.33 (7.35-7.45) 7.34 (7.35-7.45) Arterial Blood pCO2 at Patient Temp 49 mmHg (35-46) 42 mmHg (35-46) Arterial Blood pO2 at Patient Temp 83 mmHg (65-108) 103 mmHg (65-108) Arterial Blood HCO3 25 mmol/L (21-28) 22 mmol/L (21-28) Arterial Blood Base Excess -1 mmol/L (-3-3) -3 mmol/L (-3-3) Oxyhemoglobin 94.1 % Methemoglobin 0.3 % (0.0-1.9) Carbon Monoxide, Quantitative 0.6 % (0.0-1.9) FiO2 8l nc 60% vent Urine Collection Type U cath Urine Color Shanel Urine Clarity Turbid Urine pH 6.0 (<5.0-8.0) Urine Specific [place] 1.015 (1.000-1.030) Urine Protein 100 mg/dL (NEG-TRACE) Urine Glucose (UA) Negative mg/dL (NEG) Urine Ketones (Stick) Negative mg/dL (NEG) Urine Blood Negative (NEG) Urine Nitrite Negative (NEG) Urine Bilirubin Negative (NEG) Urine Urobilinogen Dipstick 1.0 mg/dL (0.2 mg/dL) Urine Leukocyte Esterase Negative (NEG) Urine RBC 0 /HPF (0-2) Urine WBC 0 /HPF (0-4) Urine Squamous Epithelial Cells Few /LPF Urine Bacteria 0 /HPF (0-FEW) White Blood Count 15.2 x10^3/uL (4.0-11.0) Red Blood Count 3.45 x10^6/uL (4.30-5.70) Hemoglobin 10.5 g/dL (13.0-17.5) Hematocrit 32.3 % (39.0-53.0) Mean Corpuscular Volume 94 fL (79-100) Mean Corpuscular Hemoglobin 30 pg (25-35) Mean Corpuscular Hemoglobin Concent 32 g/dL (31-37) Red Cell Distribution Width 13.7 % (11.5-14.5) Platelet Count 107 x10^3/uL (140-400) Neutrophils (%) (Auto) 87 % (31-73) Lymphocytes (%) (Auto) 5 % (24-48) Monocytes (%) (Auto) 8 % (0-9) Eosinophils (%) (Auto) 0 % (0-3) Basophils (%) (Auto) 0 % (0-3) Neutrophils # (Auto) 13.3 x10^3/uL (1.8-7.7) Lymphocytes # (Auto) 0.7 x10^3/uL (1.0-4.8) Monocytes # (Auto) 1.2 x10^3/uL (0.0-1.1) Eosinophils # (Auto) 0.0 x10^3/uL (0.0-0.7) Basophils # (Auto) 0.0 x10^3/uL (0.0-0.2) Segmented Neutrophils % 85 % (35-66) Band Neutrophils % 7 % (0-9) Lymphocytes % 5 % (24-48) Monocytes % 3 % (0-10) Platelet Estimate Adequate (ADEQUATE) Anisocytosis Present Macrocytosis Present Sodium Level 138 mmol/L (136-145) Potassium Level 4.9 mmol/L (3.5-5.1) Chloride Level 102 mmol/L (98-107) Carbon Dioxide Level 28 mmol/L (21-32) Anion Gap 8 (6-14) Blood Urea Nitrogen 22 mg/dL (8-26) Creatinine 2.1 mg/dL (0.7-1.3) Estimated GFR (Cockcroft-Gault) 31.8 BUN/Creatinine Ratio 10 (6-20) Glucose Level 130 mg/dL (70-99) Lactic Acid Level 1.7 mmol/L (0.4-2.0) Calcium Level 8.3 mg/dL (8.5-10.1) Total Bilirubin 1.0 mg/dL (0.2-1.0) Aspartate Amino Transf (AST/SGOT) 70 U/L (15-37) Alanine Aminotransferase (ALT/SGPT) 76 U/L (16-63) Alkaline Phosphatase 65 U/L (46-116) Lactate Dehydrogenase 337 U/L (85-227) Troponin I Quantitative 0.118 ng/mL (0.000-0.055) C-Reactive Protein, Quantitative 120.5 mg/L (0-3.3) HX-Bat-C-Type Natriuretic Peptide 1550 pg/mL (0-124) Total Protein 6.3 g/dL (6.4-8.2) Albumin 2.8 g/dL (3.4-5.0) Albumin/Globulin Ratio 0.8 (1.0-1.7) Images Images Chest radiograph: Patient is intubated with ET tube terminating 3.7 cm above the odin. An enteric tube is present, passing below the diaphragms. The heart size is normal. The great vessels appear unremarkable. There is no hilar or mediastinal mass. The lungs are clear. There is no pleural effusion or pneumothorax. There are no significant osseous abnormalities. IMPRESSION: Satisfactory positioning of the endotracheal tube and enteric tube. No active cardiopulmonary disease noted. CT head: BRAIN PARENCHYMA: No evidence of acute intraparenchymal hemorrhage or infarct. No abnormal parenchymal density or mass. VENTRICLES & EXTRA-AXIAL SPACES: Ventricles are within normal limits. Basilar cisterns are patent. No pathologic extra-axial fluid collection or mass. ORBITS: Orbital contents are unremarkable. SINUSES: Paranasal sinus mucosal thickening is present with frothy fluid in the bilateral maxillary antra. The mastoids are clear. OSSEOUS & SOFT TISSUES: Calvarium and skull base are intact. IMPRESSION: 1. No acute intracranial pathology. 2. Bilateral acute maxillary sinusitis. CT Chest w/o contrast: The absence of IV contrast limits evaluation of soft tissue pathology. CARDIOVASCULAR: Multivessel coronary calcifications. MEDIASTINUM & PRESTON: Enteric tube terminates in the distal stomach. Patient is intubated and ET tube terminates just above the odin. LUNGS: Lungs show mild bibasilar atelectasis in the lower lobes in the dependent aspects of the bilateral upper lobes. No lobar consolidation are otherwise pulmonary infiltrates. PLEURAL SPACE: No pleural effusions or pneumothorax. OSSEOUS & SOFT TISSUE: Unremarkable ABDOMEN: The visualized portions of the upper abdomen are unremarkable. IMPRESSION: Endotracheal intubation and enteric tube placement with mild bibasilar atelectasis and multivessel coronary calcifications but no acute cardiopulmonary process otherwise shown on noncontrast chest CT. VTE Prophylaxis Ordered VTE Prophylaxis Devices: No VTE Pharmacological Prophylaxi: Yes Assessment/Plan Assessment/Plan A/P: Acute hypoxic and hypercapnic respiratory failure - likely due to opioid overdose with concomitant benzodiazepine dosing. Not responsive to narcan. No significant respiratory history per records. Pulm consulted for vent management Acute encephalopathy - likely related to above overdose. Treating for pneumonia empirically. History of lymphoma - has been in remission since 2016. PET with no recurrence in June Leukocytosis - possibly reactive vs infectious, empiric antibiotics initiated Abnormal CT chest with bibasilar atelectasis - will f/u COVID 19 test Acute kidney injury - likely vasomotor nephropathy Increased troponin level - likely demand ischemia, will trend troponins Moderate protein-calorie malnutrition - will start early nutrition Osteoarthritis - s/p left TKA on 08/20/2020, was discharged 08/22/2020. Transaminitis - possibly shock liver vs COVID 19, will f/u results. Thrombocytopenia - Unclear etiology, will monitor FEN - NPO, can initiate tube feeds early PPX - Heparin FULL CODE Dispo - inpatient, ICU CC time 38 minutes Justifications for Admission Other Justification SAJI JAIMES MD Aug 29, 2020 11:54
--- NOTE | 2020-08-29 12:34 | RAD ---
Bilateral lower extremity venous duplex study 08/29/2020 Clinical History: Bilateral leg swelling. Recent left knee surgery. Technique: Using a combination of real time ultrasound imaging and color-flow and pulse Doppler imagi ng techniques along with graded compression and augmentation, duplex evaluation of the deep venous sy stem of the both lower extremities was performed. Multiple images were obtained. Findings: There is no sonographic evidence of deep venous thrombosis involving the visualized deep ve nous structures of either lower extremity. Impression: Negative study. Electronically signed by: Jeramy Flower MD (08/29/2020 12:31 PM) [id number]
--- NOTE | 2020-08-29 13:06 | CONS ---
DATE OF CONSULTATION: 08/29/2020 PULMONARY CONSULTATION ATTENDING PHYSICIAN: Jono Max MD REASON FOR CONSULTATION: Respiratory failure. HISTORY OF PRESENT ILLNESS: The patient is a 64-year-old male who has a past medical history of CAD, hypertension, history of lymphoma, history of immunosuppression. He had a recent knee surgery. He was taking morphine as well as hydrocodone. The patient was noted to be delirious yesterday and his morphine was stopped. He was brought into the hospital with altered mental status. He received 2 mL of Narcan by the EMS and then another 4 mL in the ER. The patient did not wake up. He was intubated for airway protection. Initially, his ABG showed a pH of 7.33, pCO2 of 49 and a pO2 of 83 on 8 liters. After intubation, pH of 7.34, pCO2 down to 42, pO2 of 103 and bicarbonate was 22. He underwent a CT head, which did not reveal any intracranial abnormalities. Venous Dopplers were negative for DVT. He also had a noncontrast CT chest that showed basal atelectasis. No other abnormality seen. The patient is currently intubated in the ER where I saw the patient. PAST MEDICAL HISTORY: History of CAD, hypertension, history of lymphoma, details not available, history of immune suppression. PAST SURGICAL HISTORY: Left rotator cuff. Port-A-Cath, right chest for chemo. Left knee surgery. SOCIAL HISTORY: Former smoker. ALLERGIES: None. MEDICATIONS: Reviewed that were given in the ER. REVIEW OF SYSTEMS: Unable to obtain from the patient. PHYSICAL EXAMINATION: GENERAL: He is intubated. VITAL SIGNS: Blood pressure stable, pulse ox is 98%. NECK: Supple. LUNGS: With diminished breath sounds. CARDIOVASCULAR: With a regular rate. ABDOMEN: Soft. EXTREMITIES: With trace pitting edema. LABORATORY DATA: Reviewed. ABG discussed in my history of present illness. BUN 22, creatinine 2.1. AST and ALT elevated. Troponin 0.118. White cell count 15.2, hemoglobin 10.5 and platelets are 107. IMPRESSION: 1. Acute respiratory failure secondary to acute toxic encephalopathy. 2. Acute toxic encephalopathy, likely related to narcotic overdose. However, we will obtain a urine drug screen to rule out any other drugs. 3. History of lymphoma, details unknown. Apparently had been on immune suppression treatment. 4. Leukocytosis. 5. Abnormal CT chest with bibasilar atelectasis. 6. Acute kidney injury. 7. Increased troponin level. 8. Moderate protein-calorie malnutrition. RECOMMENDATIONS: 1. Continue present assist control mode. Make changes based on ABGs. 2. Follow neurological improvement in the next 24 hours. Once awake, we will do CPAP trial. 3. Add empiric antibiotics. 4. Monitor renal function closely. 5. Rule out COVID infection. Radiographically seems less likely. 6. Monitor troponin levels. 7. Monitor LFTs. 8. Discussed with RN and RT. We will follow along with you. Labs reviewed, imaging studies reviewed. Critical care time 35 minutes. MALOU PIÑA MD DR: RENEE/dashawn JOB#: [id number] / [id number]
[2020-08-29 13:18] LABS: AMPHETAMINE/METHAMPHETAMINE NEG (NEG); BARBITURATES NEG (NEG); BENZODIAZEPINES POS (NEG); CANNABINOIDS NEG (NEG); COCAINE NEG (NEG); METHADONE NEG (NEG); OPIATES POS (NEG); PHENCYCLIDINE NEG (NEG)
--- NOTE | 2020-08-29 13:30 | NUR ---
Rec'd from ER per cart and placed on Vent. ETT secure. Low dose Levo thru patent EJ. Talked with Mami on phone. Light sedation Versed. Lt knee with surgical dsg intact from recent knee replacement. Will address this later. Dr Max at bedside. SR. Garrido with yellow urine. Low grade temp 99 Dr Atkins saw pt in ER.
[2020-08-29] MEDS: cefTRIAXone IV Push 1 GM VIAL. IVP SCH (13:32)
[2020-08-29] MEDS ORDERED: ACETAMINOPHEN 650 MG/20.3 ML SOLUTION. GT PRN (14:15)
[2020-08-29] MEDS ORDERED: ONDANSETRON PF 4 MG/2 ML VIAL. IV PRN (14:15)
[2020-08-29] MEDS ORDERED: DOCUSATE SODIUM 100 MG CAPSULE. PO PRN (14:15)
[2020-08-29] MEDS: PROPOFOL 100 ML IV PRN ×2 (15:43→19:46)
[2020-08-29] MEDS: HEPARIN for SUB-Q USE 5,000 UNIT/ML VIAL. SQ SCH ×2 (16:04→22:42)
[2020-08-29] MEDS ORDERED: NOREPINEPHRINE VIAL 8 MG in IV DEXTROSE 5% 250 ML IV PRN (17:30)
[2020-08-29] MEDS ORDERED: ASPI-630 PO (18:28)
[2020-08-29] MEDS ORDERED: MORP15TA80 PO (18:28)
[2020-08-29] MEDS ORDERED: PREG300C PO (18:28)
[2020-08-29] MEDS ORDERED: ALPR0.254 PO (18:28)
[2020-08-29] MEDS ORDERED: MELO15TA23 PO (18:28)
[2020-08-29] MEDS ORDERED: HYDR-2761 PO (18:28)
[2020-08-30] VITALS (20 sets, daily range): BP systolic 78–133; BP diastolic 47–76
[2020-08-30] MEDS: PROPOFOL 100 ML IV PRN ×3 (00:56→08:06)
[2020-08-30] MEDS: HEPARIN for SUB-Q USE 5,000 UNIT/ML VIAL. SQ SCH ×3 (06:34→20:38)
[2020-08-30 07:58] LABS: BASE EXCESS ABG 2 mmol/L (-3-3); HCO3 ABG 25 mmol/L (21-28); PCO2 ABG 32 mmHg (35-46); PO2 ABG 79 mmHg (65-108); SAT O2 ABG 96 % (92-99)
[2020-08-30 08:09] LABS: FIO2 ABG 60%
[2020-08-30 08:40] LABS: BASO % 0 % (0-3); EOS % 0 % (0-3); HEMOGLOBIN 10.4 g/dL (13.0-17.5); LYMPH # 0.5 x10^3/uL (1.0-4.8); LYMPH % 4 % (24-48); MEAN CORPUSCULAR HEMOGLOBIN 31 pg (25-35); MEAN CORPUSCULAR HGB CONC 33 g/dL (31-37); MEAN CORPUSCULAR VOLUME 91 fL (79-100); MONO # 0.9 x10^3/uL (0.0-1.1); MONO % 8 % (0-9); NEUT # 10.3 x10^3/uL (1.8-7.7); NEUT % 88 % (31-73); PLATELET COUNT 231 x10^3/uL (140-400); RED CELL DISTRIBUTION WIDTH 13.3 % (11.5-14.5); WHITE BLOOD COUNT 11.7 x10^3/uL (4.0-11.0)
[2020-08-30 08:52] LABS: ALBUMIN 2.6 g/dL (3.4-5.0); ALBUMIN/GLOBULIN RATIO 0.9 (1.0-1.7); CREATININE 1.2 mg/dL (0.7-1.3); GFR 60.6; POTASSIUM 4.4 mmol/L (3.5-5.1); TOTAL BILIRUBIN 0.6 mg/dL (0.2-1.0); TOTAL PROTEIN 5.6 g/dL (6.4-8.2)
[2020-08-30 08:57] LABS: CALCIUM 8.5 mg/dL (8.5-10.1)
--- NOTE | 2020-08-30 09:58 | PDOC ---
PULMONARY PROGRESS NOTES DATE: 08/30/20 TIME: 09:54 Subjective intubated/sedated AC mode Vitals Vital Signs Date Time Temp Pulse Resp B/P (MAP) Pulse Ox O2 Delivery O2 Flow Rate FiO2 08/30/20 08:00 Mechanical Ventilator 08/30/20 07:46 98 08/30/20 06:00 66 18 87/60 (69) 08/30/20 04:00 99.4 99.4 08/29/20 07:24 15.0 Lungs: Clear Cardiovascular: S1, S2 Abdomen: Soft, Non-tender Extremities: Other (1+edema) Labs Laboratory Tests Test 08/29/20 07:35 08/29/20 07:37 08/29/20 07:40 08/29/20 09:05 O2 Saturation 95 % (92-99) 97 % (92-99) Arterial Blood pH 7.33 (7.35-7.45) 7.34 (7.35-7.45) Arterial Blood pCO2 at Patient Temp 49 mmHg (35-46) 42 mmHg (35-46) Arterial Blood pO2 at Patient Temp 83 mmHg (65-108) 103 mmHg (65-108) Arterial Blood HCO3 25 mmol/L (21-28) 22 mmol/L (21-28) Arterial Blood Base Excess -1 mmol/L (-3-3) -3 mmol/L (-3-3) Oxyhemoglobin 94.1 % Methemoglobin 0.3 % (0.0-1.9) Carbon Monoxide, Quantitative 0.6 % (0.0-1.9) FiO2 8l nc 60% vent Urine Collection Type U cath Urine Color Shanel Urine Clarity Turbid Urine pH 6.0 (<5.0-8.0) Urine Specific [place] 1.015 (1.000-1.030) Urine Protein 100 mg/dL (NEG-TRACE) Urine Glucose (UA) Negative mg/dL (NEG) Urine Ketones (Stick) Negative mg/dL (NEG) Urine Blood Negative (NEG) Urine Nitrite Negative (NEG) Urine Bilirubin Negative (NEG) Urine Urobilinogen Dipstick 1.0 mg/dL (0.2 mg/dL) Urine Leukocyte Esterase Negative (NEG) Urine RBC 0 /HPF (0-2) Urine WBC 0 /HPF (0-4) Urine Squamous Epithelial Cells Few /LPF Urine Bacteria 0 /HPF (0-FEW) Urine Opiates Screen Pos (NEG) Urine Methadone Screen Neg (NEG) Urine Barbiturates Neg (NEG) Urine Phencyclidine Screen Neg (NEG) Urine Amphetamine/Methamphetamine Neg (NEG) Urine Benzodiazepines Screen Pos (NEG) Urine Cocaine Screen Neg (NEG) Urine Cannabinoids Screen Neg (NEG) Urine Ethyl Alcohol Neg (NEG) White Blood Count 15.2 x10^3/uL (4.0-11.0) Red Blood Count 3.45 x10^6/uL (4.30-5.70) Hemoglobin 10.5 g/dL (13.0-17.5) Hematocrit 32.3 % (39.0-53.0) Mean Corpuscular Volume 94 fL (79-100) Mean Corpuscular Hemoglobin 30 pg (25-35) Mean Corpuscular Hemoglobin Concent 32 g/dL (31-37) Red Cell Distribution Width 13.7 % (11.5-14.5) Platelet Count 107 x10^3/uL (140-400) Neutrophils (%) (Auto) 87 % (31-73) Lymphocytes (%) (Auto) 5 % (24-48) Monocytes (%) (Auto) 8 % (0-9) Eosinophils (%) (Auto) 0 % (0-3) Basophils (%) (Auto) 0 % (0-3) Neutrophils # (Auto) 13.3 x10^3/uL (1.8-7.7) Lymphocytes # (Auto) 0.7 x10^3/uL (1.0-4.8) Monocytes # (Auto) 1.2 x10^3/uL (0.0-1.1) Eosinophils # (Auto) 0.0 x10^3/uL (0.0-0.7) Basophils # (Auto) 0.0 x10^3/uL (0.0-0.2) Segmented Neutrophils % 85 % (35-66) Band Neutrophils % 7 % (0-9) Lymphocytes % 5 % (24-48) Monocytes % 3 % (0-10) Platelet Estimate Adequate (ADEQUATE) Anisocytosis Present Macrocytosis Present Sodium Level 138 mmol/L (136-145) Potassium Level 4.9 mmol/L (3.5-5.1) Chloride Level 102 mmol/L (98-107) Carbon Dioxide Level 28 mmol/L (21-32) Anion Gap 8 (6-14) Blood Urea Nitrogen 22 mg/dL (8-26) Creatinine 2.1 mg/dL (0.7-1.3) Estimated GFR (Cockcroft-Gault) 31.8 BUN/Creatinine Ratio 10 (6-20) Glucose Level 130 mg/dL (70-99) Lactic Acid Level 1.7 mmol/L (0.4-2.0) Calcium Level 8.3 mg/dL (8.5-10.1) Total Bilirubin 1.0 mg/dL (0.2-1.0) Aspartate Amino Transf (AST/SGOT) 70 U/L (15-37) Alanine Aminotransferase (ALT/SGPT) 76 U/L (16-63) Alkaline Phosphatase 65 U/L (46-116) Lactate Dehydrogenase 337 U/L (85-227) Troponin I Quantitative 0.118 ng/mL (0.000-0.055) C-Reactive Protein, Quantitative 120.5 mg/L (0-3.3) NG-Cvb-S-Type Natriuretic Peptide 1550 pg/mL (0-124) Total Protein 6.3 g/dL (6.4-8.2) Albumin 2.8 g/dL (3.4-5.0) Albumin/Globulin Ratio 0.8 (1.0-1.7) Test 08/29/20 09:10 08/29/20 17:48 08/30/20 02:15 08/30/20 07:55 Coronavirus (PCR) Not detected (Not Detected) Troponin I Quantitative 0.798 ng/mL (0.000-0.055) 0.586 ng/mL (0.000-0.055) O2 Saturation 96 % (92-99) Arterial Blood pH 7.51 (7.35-7.45) Arterial Blood pCO2 at Patient Temp 32 mmHg (35-46) Arterial Blood pO2 at Patient Temp 79 mmHg (65-108) Arterial Blood HCO3 25 mmol/L (21-28) Arterial Blood Base Excess 2 mmol/L (-3-3) FiO2 60% Test 08/30/20 08:00 White Blood Count 11.7 x10^3/uL (4.0-11.0) Red Blood Count 3.40 x10^6/uL (4.30-5.70) Hemoglobin 10.4 g/dL (13.0-17.5) Hematocrit 31.0 % (39.0-53.0) Mean Corpuscular Volume 91 fL (79-100) Mean Corpuscular Hemoglobin 31 pg (25-35) Mean Corpuscular Hemoglobin Concent 33 g/dL (31-37) Red Cell Distribution Width 13.3 % (11.5-14.5) Platelet Count 231 x10^3/uL (140-400) Neutrophils (%) (Auto) 88 % (31-73) Lymphocytes (%) (Auto) 4 % (24-48) Monocytes (%) (Auto) 8 % (0-9) Eosinophils (%) (Auto) 0 % (0-3) Basophils (%) (Auto) 0 % (0-3) Neutrophils # (Auto) 10.3 x10^3/uL (1.8-7.7) Lymphocytes # (Auto) 0.5 x10^3/uL (1.0-4.8) Monocytes # (Auto) 0.9 x10^3/uL (0.0-1.1) Eosinophils # (Auto) 0.0 x10^3/uL (0.0-0.7) Basophils # (Auto) 0.0 x10^3/uL (0.0-0.2) Sodium Level 141 mmol/L (136-145) Potassium Level 4.4 mmol/L (3.5-5.1) Chloride Level 104 mmol/L (98-107) Carbon Dioxide Level 26 mmol/L (21-32) Anion Gap 11 (6-14) Blood Urea Nitrogen 21 mg/dL (8-26) Creatinine 1.2 mg/dL (0.7-1.3) Estimated GFR (Cockcroft-Gault) 60.6 BUN/Creatinine Ratio 18 (6-20) Glucose Level 122 mg/dL (70-99) Calcium Level 8.5 mg/dL (8.5-10.1) Total Bilirubin 0.6 mg/dL (0.2-1.0) Aspartate Amino Transf (AST/SGOT) 49 U/L (15-37) Alanine Aminotransferase (ALT/SGPT) 65 U/L (16-63) Alkaline Phosphatase 58 U/L (46-116) Troponin I Quantitative 0.502 ng/mL (0.000-0.055) Total Protein 5.6 g/dL (6.4-8.2) Albumin 2.6 g/dL (3.4-5.0) Albumin/Globulin Ratio 0.9 (1.0-1.7) Laboratory Tests Test 08/29/20 17:48 08/30/20 02:15 08/30/20 07:55 08/30/20 08:00 Troponin I Quantitative 0.798 ng/mL (0.000-0.055) 0.586 ng/mL (0.000-0.055) 0.502 ng/mL (0.000-0.055) O2 Saturation 96 % (92-99) Arterial Blood pH 7.51 (7.35-7.45) Arterial Blood pCO2 at Patient Temp 32 mmHg (35-46) Arterial Blood pO2 at Patient Temp 79 mmHg (65-108) Arterial Blood HCO3 25 mmol/L (21-28) Arterial Blood Base Excess 2 mmol/L (-3-3) FiO2 60% White Blood Count 11.7 x10^3/uL (4.0-11.0) Red Blood Count 3.40 x10^6/uL (4.30-5.70) Hemoglobin 10.4 g/dL (13.0-17.5) Hematocrit 31.0 % (39.0-53.0) Mean Corpuscular Volume 91 fL (79-100) Mean Corpuscular Hemoglobin 31 pg (25-35) Mean Corpuscular Hemoglobin Concent 33 g/dL (31-37) Red Cell Distribution Width 13.3 % (11.5-14.5) Platelet Count 231 x10^3/uL (140-400) Neutrophils (%) (Auto) 88 % (31-73) Lymphocytes (%) (Auto) 4 % (24-48) Monocytes (%) (Auto) 8 % (0-9) Eosinophils (%) (Auto) 0 % (0-3) Basophils (%) (Auto) 0 % (0-3) Neutrophils # (Auto) 10.3 x10^3/uL (1.8-7.7) Lymphocytes # (Auto) 0.5 x10^3/uL (1.0-4.8) Monocytes # (Auto) 0.9 x10^3/uL (0.0-1.1) Eosinophils # (Auto) 0.0 x10^3/uL (0.0-0.7) Basophils # (Auto) 0.0 x10^3/uL (0.0-0.2) Sodium Level 141 mmol/L (136-145) Potassium Level 4.4 mmol/L (3.5-5.1) Chloride Level 104 mmol/L (98-107) Carbon Dioxide Level 26 mmol/L (21-32) Anion Gap 11 (6-14) Blood Urea Nitrogen 21 mg/dL (8-26) Creatinine 1.2 mg/dL (0.7-1.3) Estimated GFR (Cockcroft-Gault) 60.6 BUN/Creatinine Ratio 18 (6-20) Glucose Level 122 mg/dL (70-99) Calcium Level 8.5 mg/dL (8.5-10.1) Total Bilirubin 0.6 mg/dL (0.2-1.0) Aspartate Amino Transf (AST/SGOT) 49 U/L (15-37) Alanine Aminotransferase (ALT/SGPT) 65 U/L (16-63) Alkaline Phosphatase 58 U/L (46-116) Total Protein 5.6 g/dL (6.4-8.2) Albumin 2.6 g/dL (3.4-5.0) Albumin/Globulin Ratio 0.9 (1.0-1.7) Medications Active Scripts Medications Dose Route/Sig Max Daily Dose Days Date Category Dose Instructions Hydrocodone-Apap 5-325 (Hydrocodone Bit/Acetaminophen) 1 Tab Tablet 1 Tab PO PRN Q6HRS PRN 08/29/20 Reported Ms Contin (Morphine Sulfate) 15 Mg Tablet.er 15 Mg PO Q12HR 08/29/20 Reported Alprazolam 0.25 Mg Tablet 0.25 Mg PO PRN Q6HRS PRN 08/29/20 Reported Meloxicam 15 Mg Tablet 1 Tab PO DAILY 30 08/29/20 Reported Lyrica (Pregabalin) 300 Mg Capsule 1 Cap PO BID 08/29/20 Reported Aspirin 81 Mg Tab.chew 81 Mg PO DAILY 08/29/20 Reported [Vancomycin Hcl] 125 MG/2.5 ML Solution 125 Mg PO [id number] 08/12/16 Rx 125mg po qid x 3 weeks then 125mg po tid x 1 week then 125mg po bid x 4 weeks Centrum Silver Tablet (Multivits-Min/Fa/Lycopene/Lut) 1 Each Tablet 1 Each PO DAILY 08/10/16 Reported Protonix (Pantoprazole Sodium) 40 Mg Tablet. 1 Tab PO DAILY 08/10/16 Reported Crestor (Rosuvastatin Calcium) 40 Mg Tablet 40 Mg PO DAILY 02/03/14 Reported Impression . 1. Acute respiratory failure secondary to acute toxic encephalopathy. 2. Acute toxic encephalopathy, related to narcotic/ benzo overdose. 3. History of lymphoma, details unknown. Apparently had been on immune suppression treatment. 4. Leukocytosis. 5. Abnormal CT chest with bibasilar atelectasis. 6. Acute kidney injury. 7. Increased troponin level. 8. Moderate protein-calorie malnutrition. Plan . 1. Continue present assist control mode. Make changes based on ABGs. 2. dc sedation .Once awake, we will do CPAP trial. possible extubation today. 3. empiric antibiotics. 4. Monitor renal function closely. 5. Ruled out for COVID infection. 6. Monitor troponin levels. 7. Monitor LFTs. 8. Discussed with RN and RT./ .We will follow along with you. Labs reviewed, imaging studies reviewed. Critical care time 30 minutes. MALOU PIÑA MD Aug 30, 2020 09:57
--- NOTE | 2020-08-30 10:17 | NUR ---
SS following for discharge planning. SS reviewed pt chart and discussed with pt RN. Pt is from home with spouse and is currently on the vent at 60%. COVID19 negative. Pt on IV Rocephin. Not stable. SS will continue to follow for discharge planning.
[2020-08-30 11:30] LABS: BASE EXCESS ABG 4 mmol/L (-3-3); HCO3 ABG 27 mmol/L (21-28); PCO2 ABG 36 mmHg (35-46); PO2 ABG 72 mmHg (65-108); SAT O2 ABG 95 % (92-99)
[2020-08-30 11:34] LABS: FIO2 ABG 60
--- NOTE | 2020-08-30 11:52 | NUR ---
pt extubated at 1145, placed on 3l nc. pt tolerating well.
[2020-08-30] MEDS: cefTRIAXone IV Push 1 GM VIAL. IVP SCH (13:22)
--- NOTE | 2020-08-30 13:46 | PDOC ---
PROGRESS NOTES Date of Service: DATE: 08/30/20 TIME: 13:44 Chief Complaint Chief Complaint Acute hypoxic and hypercapnic respiratory failure - opioid overdose with concomitant benzodiazepine dosing during a panic attack, recent Left knee TOtal Acute encephalopathy - likely related to above overdose. still confused from meds for sedation on vent, History of lymphoma - has been in remission since 2016 Leukocytosis - possibly reactive vs infectious, empiric antibiotics initiated, COVID neg Acute kidney injury - y vasomotor nephropathy Increased troponin level demand ischemia, better Moderate protein-calorie malnutrition - will start early nutrition Osteoarthritis - s/p left TKA on 08/20/2020, was discharged 08/22/2020. Transaminitis - possibly shock liver vs COVID 19, will f/u results. Thrombocytopenia - Unclear etiology, will monitor recent left knee total, PT and OT History of Present Illness History of Present Illness extubated this AM cont current PT and OT to floor, may be able to DC in AM Vitals Vitals Vital Signs Date Time Temp Pulse Resp B/P (MAP) Pulse Ox O2 Delivery O2 Flow Rate FiO2 08/30/20 12:00 Room Air 3.0 08/30/20 11:23 97 08/30/20 10:00 77 18 102/55 (71) 08/30/20 08:00 99.1 99.1 Physical Exam General: Other (Intubated, sedated) Lungs: Clear Abdomen: Normal bowel sounds, Soft, No tenderness, No hepatosplenomegaly, No masses Extremities: No clubbing, No cyanosis, No edema, Normal pulses, Other (Left knee with compressive dressing in place) Skin: No rashes, No breakdown, No significant lesion Labs LABS Laboratory Tests Test 08/29/20 17:48 08/30/20 02:15 08/30/20 07:55 08/30/20 08:00 Troponin I Quantitative 0.798 ng/mL (0.000-0.055) 0.586 ng/mL (0.000-0.055) 0.502 ng/mL (0.000-0.055) O2 Saturation 96 % (92-99) Arterial Blood pH 7.51 (7.35-7.45) Arterial Blood pCO2 at Patient Temp 32 mmHg (35-46) Arterial Blood pO2 at Patient Temp 79 mmHg (65-108) Arterial Blood HCO3 25 mmol/L (21-28) Arterial Blood Base Excess 2 mmol/L (-3-3) FiO2 60% White Blood Count 11.7 x10^3/uL (4.0-11.0) Red Blood Count 3.40 x10^6/uL (4.30-5.70) Hemoglobin 10.4 g/dL (13.0-17.5) Hematocrit 31.0 % (39.0-53.0) Mean Corpuscular Volume 91 fL (79-100) Mean Corpuscular Hemoglobin 31 pg (25-35) Mean Corpuscular Hemoglobin Concent 33 g/dL (31-37) Red Cell Distribution Width 13.3 % (11.5-14.5) Platelet Count 231 x10^3/uL (140-400) Neutrophils (%) (Auto) 88 % (31-73) Lymphocytes (%) (Auto) 4 % (24-48) Monocytes (%) (Auto) 8 % (0-9) Eosinophils (%) (Auto) 0 % (0-3) Basophils (%) (Auto) 0 % (0-3) Neutrophils # (Auto) 10.3 x10^3/uL (1.8-7.7) Lymphocytes # (Auto) 0.5 x10^3/uL (1.0-4.8) Monocytes # (Auto) 0.9 x10^3/uL (0.0-1.1) Eosinophils # (Auto) 0.0 x10^3/uL (0.0-0.7) Basophils # (Auto) 0.0 x10^3/uL (0.0-0.2) Sodium Level 141 mmol/L (136-145) Potassium Level 4.4 mmol/L (3.5-5.1) Chloride Level 104 mmol/L (98-107) Carbon Dioxide Level 26 mmol/L (21-32) Anion Gap 11 (6-14) Blood Urea Nitrogen 21 mg/dL (8-26) Creatinine 1.2 mg/dL (0.7-1.3) Estimated GFR (Cockcroft-Gault) 60.6 BUN/Creatinine Ratio 18 (6-20) Glucose Level 122 mg/dL (70-99) Calcium Level 8.5 mg/dL (8.5-10.1) Total Bilirubin 0.6 mg/dL (0.2-1.0) Aspartate Amino Transf (AST/SGOT) 49 U/L (15-37) Alanine Aminotransferase (ALT/SGPT) 65 U/L (16-63) Alkaline Phosphatase 58 U/L (46-116) Total Protein 5.6 g/dL (6.4-8.2) Albumin 2.6 g/dL (3.4-5.0) Albumin/Globulin Ratio 0.9 (1.0-1.7) Test 08/30/20 11:27 O2 Saturation 95 % (92-99) Arterial Blood pH 7.50 (7.35-7.45) Arterial Blood pCO2 at Patient Temp 36 mmHg (35-46) Arterial Blood pO2 at Patient Temp 72 mmHg (65-108) Arterial Blood HCO3 27 mmol/L (21-28) Arterial Blood Base Excess 4 mmol/L (-3-3) FiO2 60 Assessment and Plan Assessmemt and Plan Problems Medical Problems: (1) Acute respiratory failure with hypoxia Status: Acute (2) Altered mental status Status: Acute Comment Review of Relevant I have reviewed the following items bethanie (where applicable) has been applied. Labs Laboratory Tests Test 08/29/20 07:35 08/29/20 07:37 08/29/20 07:40 08/29/20 09:05 O2 Saturation 95 % (92-99) 97 % (92-99) Arterial Blood pH 7.33 (7.35-7.45) 7.34 (7.35-7.45) Arterial Blood pCO2 at Patient Temp 49 mmHg (35-46) 42 mmHg (35-46) Arterial Blood pO2 at Patient Temp 83 mmHg (65-108) 103 mmHg (65-108) Arterial Blood HCO3 25 mmol/L (21-28) 22 mmol/L (21-28) Arterial Blood Base Excess -1 mmol/L (-3-3) -3 mmol/L (-3-3) Oxyhemoglobin 94.1 % Methemoglobin 0.3 % (0.0-1.9) Carbon Monoxide, Quantitative 0.6 % (0.0-1.9) FiO2 8l nc 60% vent Urine Collection Type U cath Urine Color Shanel Urine Clarity Turbid Urine pH 6.0 (<5.0-8.0) Urine Specific Lindsay 1.015 (1.000-1.030) Urine Protein 100 mg/dL (NEG-TRACE) Urine Glucose (UA) Negative mg/dL (NEG) Urine Ketones (Stick) Negative mg/dL (NEG) Urine Blood Negative (NEG) Urine Nitrite Negative (NEG) Urine Bilirubin Negative (NEG) Urine Urobilinogen Dipstick 1.0 mg/dL (0.2 mg/dL) Urine Leukocyte Esterase Negative (NEG) Urine RBC 0 /HPF (0-2) Urine WBC 0 /HPF (0-4) Urine Squamous Epithelial Cells Few /LPF Urine Bacteria 0 /HPF (0-FEW) Urine Opiates Screen Pos (NEG) Urine Methadone Screen Neg (NEG) Urine Barbiturates Neg (NEG) Urine Phencyclidine Screen Neg (NEG) Urine Amphetamine/Methamphetamine Neg (NEG) Urine Benzodiazepines Screen Pos (NEG) Urine Cocaine Screen Neg (NEG) Urine Cannabinoids Screen Neg (NEG) Urine Ethyl Alcohol Neg (NEG) White Blood Count 15.2 x10^3/uL (4.0-11.0) Red Blood Count 3.45 x10^6/uL (4.30-5.70) Hemoglobin 10.5 g/dL (13.0-17.5) Hematocrit 32.3 % (39.0-53.0) Mean Corpuscular Volume 94 fL (79-100) Mean Corpuscular Hemoglobin 30 pg (25-35) Mean Corpuscular Hemoglobin Concent 32 g/dL (31-37) Red Cell Distribution Width 13.7 % (11.5-14.5) Platelet Count 107 x10^3/uL (140-400) Neutrophils (%) (Auto) 87 % (31-73) Lymphocytes (%) (Auto) 5 % (24-48) Monocytes (%) (Auto) 8 % (0-9) Eosinophils (%) (Auto) 0 % (0-3) Basophils (%) (Auto) 0 % (0-3) Neutrophils # (Auto) 13.3 x10^3/uL (1.8-7.7) Lymphocytes # (Auto) 0.7 x10^3/uL (1.0-4.8) Monocytes # (Auto) 1.2 x10^3/uL (0.0-1.1) Eosinophils # (Auto) 0.0 x10^3/uL (0.0-0.7) Basophils # (Auto) 0.0 x10^3/uL (0.0-0.2) Segmented Neutrophils % 85 % (35-66) Band Neutrophils % 7 % (0-9) Lymphocytes % 5 % (24-48) Monocytes % 3 % (0-10) Platelet Estimate Adequate (ADEQUATE) Anisocytosis Present Macrocytosis Present Sodium Level 138 mmol/L (136-145) Potassium Level 4.9 mmol/L (3.5-5.1) Chloride Level 102 mmol/L (98-107) Carbon Dioxide Level 28 mmol/L (21-32) Anion Gap 8 (6-14) Blood Urea Nitrogen 22 mg/dL (8-26) Creatinine 2.1 mg/dL (0.7-1.3) Estimated GFR (Cockcroft-Gault) 31.8 BUN/Creatinine Ratio 10 (6-20) Glucose Level 130 mg/dL (70-99) Lactic Acid Level 1.7 mmol/L (0.4-2.0) Calcium Level 8.3 mg/dL (8.5-10.1) Total Bilirubin 1.0 mg/dL (0.2-1.0) Aspartate Amino Transf (AST/SGOT) 70 U/L (15-37) Alanine Aminotransferase (ALT/SGPT) 76 U/L (16-63) Alkaline Phosphatase 65 U/L (46-116) Lactate Dehydrogenase 337 U/L (85-227) Troponin I Quantitative 0.118 ng/mL (0.000-0.055) C-Reactive Protein, Quantitative 120.5 mg/L (0-3.3) BE-Iit-C-Type Natriuretic Peptide 1550 pg/mL (0-124) Total Protein 6.3 g/dL (6.4-8.2) Albumin 2.8 g/dL (3.4-5.0) Albumin/Globulin Ratio 0.8 (1.0-1.7) Test 08/29/20 09:10 08/29/20 17:48 08/30/20 02:15 08/30/20 07:55 Coronavirus (PCR) Not detected (Not Detected) Troponin I Quantitative 0.798 ng/mL (0.000-0.055) 0.586 ng/mL (0.000-0.055) O2 Saturation 96 % (92-99) Arterial Blood pH 7.51 (7.35-7.45) Arterial Blood pCO2 at Patient Temp 32 mmHg (35-46) Arterial Blood pO2 at Patient Temp 79 mmHg (65-108) Arterial Blood HCO3 25 mmol/L (21-28) Arterial Blood Base Excess 2 mmol/L (-3-3) FiO2 60% Test 08/30/20 08:00 08/30/20 11:27 White Blood Count 11.7 x10^3/uL (4.0-11.0) Red Blood Count 3.40 x10^6/uL (4.30-5.70) Hemoglobin 10.4 g/dL (13.0-17.5) Hematocrit 31.0 % (39.0-53.0) Mean Corpuscular Volume 91 fL (79-100) Mean Corpuscular Hemoglobin 31 pg (25-35) Mean Corpuscular Hemoglobin Concent 33 g/dL (31-37) Red Cell Distribution Width 13.3 % (11.5-14.5) Platelet Count 231 x10^3/uL (140-400) Neutrophils (%) (Auto) 88 % (31-73) Lymphocytes (%) (Auto) 4 % (24-48) Monocytes (%) (Auto) 8 % (0-9) Eosinophils (%) (Auto) 0 % (0-3) Basophils (%) (Auto) 0 % (0-3) Neutrophils # (Auto) 10.3 x10^3/uL (1.8-7.7) Lymphocytes # (Auto) 0.5 x10^3/uL (1.0-4.8) Monocytes # (Auto) 0.9 x10^3/uL (0.0-1.1) Eosinophils # (Auto) 0.0 x10^3/uL (0.0-0.7) Basophils # (Auto) 0.0 x10^3/uL (0.0-0.2) Sodium Level 141 mmol/L (136-145) Potassium Level 4.4 mmol/L (3.5-5.1) Chloride Level 104 mmol/L (98-107) Carbon Dioxide Level 26 mmol/L (21-32) Anion Gap 11 (6-14) Blood Urea Nitrogen 21 mg/dL (8-26) Creatinine 1.2 mg/dL (0.7-1.3) Estimated GFR (Cockcroft-Gault) 60.6 BUN/Creatinine Ratio 18 (6-20) Glucose Level 122 mg/dL (70-99) Calcium Level 8.5 mg/dL (8.5-10.1) Total Bilirubin 0.6 mg/dL (0.2-1.0) Aspartate Amino Transf (AST/SGOT) 49 U/L (15-37) Alanine Aminotransferase (ALT/SGPT) 65 U/L (16-63) Alkaline Phosphatase 58 U/L (46-116) Troponin I Quantitative 0.502 ng/mL (0.000-0.055) Total Protein 5.6 g/dL (6.4-8.2) Albumin 2.6 g/dL (3.4-5.0) Albumin/Globulin Ratio 0.9 (1.0-1.7) O2 Saturation 95 % (92-99) Arterial Blood pH 7.50 (7.35-7.45) Arterial Blood pCO2 at Patient Temp 36 mmHg (35-46) Arterial Blood pO2 at Patient Temp 72 mmHg (65-108) Arterial Blood HCO3 27 mmol/L (21-28) Arterial Blood Base Excess 4 mmol/L (-3-3) FiO2 60 Laboratory Tests Test 08/29/20 17:48 08/30/20 02:15 08/30/20 07:55 08/30/20 08:00 Troponin I Quantitative 0.798 ng/mL (0.000-0.055) 0.586 ng/mL (0.000-0.055) 0.502 ng/mL (0.000-0.055) O2 Saturation 96 % (92-99) Arterial Blood pH 7.51 (7.35-7.45) Arterial Blood pCO2 at Patient Temp 32 mmHg (35-46) Arterial Blood pO2 at Patient Temp 79 mmHg (65-108) Arterial Blood HCO3 25 mmol/L (21-28) Arterial Blood Base Excess 2 mmol/L (-3-3) FiO2 60% White Blood Count 11.7 x10^3/uL (4.0-11.0) Red Blood Count 3.40 x10^6/uL (4.30-5.70) Hemoglobin 10.4 g/dL (13.0-17.5) Hematocrit 31.0 % (39.0-53.0) Mean Corpuscular Volume 91 fL (79-100) Mean Corpuscular Hemoglobin 31 pg (25-35) Mean Corpuscular Hemoglobin Concent 33 g/dL (31-37) Red Cell Distribution Width 13.3 % (11.5-14.5) Platelet Count 231 x10^3/uL (140-400) Neutrophils (%) (Auto) 88 % (31-73) Lymphocytes (%) (Auto) 4 % (24-48) Monocytes (%) (Auto) 8 % (0-9) Eosinophils (%) (Auto) 0 % (0-3) Basophils (%) (Auto) 0 % (0-3) Neutrophils # (Auto) 10.3 x10^3/uL (1.8-7.7) Lymphocytes # (Auto) 0.5 x10^3/uL (1.0-4.8) Monocytes # (Auto) 0.9 x10^3/uL (0.0-1.1) Eosinophils # (Auto) 0.0 x10^3/uL (0.0-0.7) Basophils # (Auto) 0.0 x10^3/uL (0.0-0.2) Sodium Level 141 mmol/L (136-145) Potassium Level 4.4 mmol/L (3.5-5.1) Chloride Level 104 mmol/L (98-107) Carbon Dioxide Level 26 mmol/L (21-32) Anion Gap 11 (6-14) Blood Urea Nitrogen 21 mg/dL (8-26) Creatinine 1.2 mg/dL (0.7-1.3) Estimated GFR (Cockcroft-Gault) 60.6 BUN/Creatinine Ratio 18 (6-20) Glucose Level 122 mg/dL (70-99) Calcium Level 8.5 mg/dL (8.5-10.1) Total Bilirubin 0.6 mg/dL (0.2-1.0) Aspartate Amino Transf (AST/SGOT) 49 U/L (15-37) Alanine Aminotransferase (ALT/SGPT) 65 U/L (16-63) Alkaline Phosphatase 58 U/L (46-116) Total Protein 5.6 g/dL (6.4-8.2) Albumin 2.6 g/dL (3.4-5.0) Albumin/Globulin Ratio 0.9 (1.0-1.7) Test 08/30/20 11:27 O2 Saturation 95 % (92-99) Arterial Blood pH 7.50 (7.35-7.45) Arterial Blood pCO2 at Patient Temp 36 mmHg (35-46) Arterial Blood pO2 at Patient Temp 72 mmHg (65-108) Arterial Blood HCO3 27 mmol/L (21-28) Arterial Blood Base Excess 4 mmol/L (-3-3) FiO2 60 Microbiology 08/29/20 Blood Culture - Preliminary, Resulted NO GROWTH AFTER 1 DAY Medications Current Medications Ceftriaxone Sodium (Rocephin) 1 gm 1X ONCE IVP Last administered on 08/29/20at 08:36; Start 08/29/20 at 08:15; Stop 08/29/20 at 08:16; Status DC Dexamethasone Sodium Phosphate (Decadron) 10 mg 1X ONCE IVP Last administered on 08/29/20at 08:36; Start 08/29/20 at 08:15; Stop 08/29/20 at 08:16; Status DC Propofol 100 ml @ 0 mls/hr CONT PRN IV PER PROTOCOL; Start 08/29/20 at 07:45; Stop 08/29/20 at 07:56; Status DC Chlorhexidine Gluconate (Peridex) 15 ml BID MM ; Start 08/29/20 at 09:00; Stop 08/29/20 at 19:21; Status DC Midazolam HCl 100 ml @ 0 mls/hr 1X ONCE IV Last administered on 08/29/20at 09:08; Start 08/29/20 at 08:00; Stop 08/29/20 at 08:01; Status DC Midazolam HCl (Versed) 5 mg 1X ONCE NS Last administered on 08/29/20at 08:32; Start 08/29/20 at 08:00; Stop 08/29/20 at 08:01; Status DC Norepinephrine Bitartrate 8 mg/ Dextrose 258 ml @ 21.092 mls/ hr 1X ONCE IV Last administered on 08/29/20at 08:37; Start 08/29/20 at 08:30; Stop 08/29/20 at 17:41; Status DC Sodium Chloride 1,000 ml @ 1,000 mls/hr 1X ONCE IV Last administered on 08/29/20at 07:50; Start 08/29/20 at 08:30; Stop 08/29/20 at 09:29; Status DC Sodium Chloride 1,000 ml @ 1,000 mls/hr 1X ONCE IV Last administered on 08/29/20at 08:15; Start 08/29/20 at 08:30; Stop 08/29/20 at 09:29; Status DC Naloxone HCl (NARCAN 2mg SYRINGE) 4 mg 1X ONCE IV Last administered on 08/29/20at 08:53; Start 08/29/20 at 09:00; Stop 08/29/20 at 09:01; Status DC Etomidate (Amidate) 30 mg 1X ONCE IV Last administered on 08/29/20at 08:55; Start 08/29/20 at 09:00; Stop 08/29/20 at 09:01; Status DC Succinylcholine Chloride (Anectine) 200 mg 1X ONCE IV Last administered on 08/29/20at 08:54; Start 08/29/20 at 09:00; Stop 08/29/20 at 09:01; Status DC Ceftriaxone Sodium (Rocephin) 1 gm Q24H IVP Last administered on 08/30/20at 13:22; Start 08/29/20 at 13:00 Heparin Sodium (Porcine) (Heparin Sodium) 5,000 unit Q8HRS SQ Last administered on 08/30/20at 06:34; Start 08/29/20 at 14:15 Ondansetron HCl (Zofran) 4 mg PRN Q4HRS PRN IV NAUSEA/VOMITING; Start 08/29/20 at 14:15 Acetaminophen (Tylenol) 650 mg PRN Q4HRS PRN GT TEMP OVER 100.4F OR MILD PAIN; Start 08/29/20 at 14:15 Docusate Sodium (Colace) 100 mg PRN BID PRN PO HARD STOOLS; Start 08/29/20 at 14:15 Propofol 100 ml @ 0 mls/hr CONT PRN IV PER PROTOCOL Last administered on 08/30/20at 08:06; Start 08/29/20 at 15:30 Propofol 100 ml @ 0 mls/hr CONT PRN IV PER PROTOCOL; Start 08/29/20 at 15:30; Status UNV Norepinephrine Bitartrate 8 mg/ Dextrose 258 ml @ 21.092 mls/ hr CONT PRN IV PER PROTOCOL Last administered on 08/29/20at 17:45; Start 08/29/20 at 17:30 Active Scripts Active [Vancomycin Hcl] 125 MG/2.5 ML Solution 125 Mg PO [id number] Days 125mg po qid x 3 weeks then 125mg po tid x 1 week then 125mg po bid x 4 weeks Reported Hydrocodone-Apap 5-325 (Hydrocodone Bit/Acetaminophen) 1 Tab Tablet 1 Tab PO PRN Q6HRS PRN Ms Contin (Morphine Sulfate) 15 Mg Tablet.er 15 Mg PO Q12HR Alprazolam 0.25 Mg Tablet 0.25 Mg PO PRN Q6HRS PRN Meloxicam 15 Mg Tablet 1 Tab PO DAILY 30 Days Lyrica (Pregabalin) 300 Mg Capsule 1 Cap PO BID Aspirin 81 Mg Tab.chew 81 Mg PO DAILY Centrum Silver Tablet (Multivits-Min/Fa/Lycopene/Lut) 1 Each Tablet 1 Each PO DAILY Protonix (Pantoprazole Sodium) 40 Mg Tablet. 1 Tab PO DAILY Crestor (Rosuvastatin Calcium) 40 Mg Tablet 40 Mg PO DAILY Vitals/I & O Vital Sign - Last 24 Hours 08/29/20 08/29/20 08/29/20 08/29/20 13:45 14:00 14:00 14:01 Pulse 76 76 Resp 24 24 B/P (MAP) 145/72 (96) 139/71 (93) Pulse Ox 93 O2 Delivery Ventilator Mechanical Ventilator Ventilator 08/29/20 08/29/20 08/29/20 08/29/20 14:15 14:30 14:31 14:45 Pulse 76 76 76 Resp 24 24 24 B/P (MAP) 147/74 (98) 152/74 (100) 152/76 (101) Pulse Ox 92 92 O2 Delivery Ventilator Ventilator Ventilator 08/29/20 08/29/20 08/29/20 08/29/20 14:58 15:00 15:15 15:30 Pulse 76 76 78 Resp 24 24 24 B/P (MAP) 143/70 (94) 149/72 (97) 151/74 (99) Pulse Ox 92 92 92 92 O2 Delivery Ventilator Ventilator Ventilator Ventilator 08/29/20 08/29/20 08/29/20 08/29/20 15:45 16:00 16:00 16:01 Temp 99.1 99.1 Pulse 76 76 Resp 24 24 B/P (MAP) 106/58 (74) 96/64 (75) Pulse Ox 90 88 O2 Delivery Ventilator Mechanical Ventilator Ventilator 08/29/20 08/29/20 08/29/20 08/29/20 16:19 16:30 16:45 17:00 Pulse 76 76 76 78 Resp 24 24 24 B/P (MAP) 132/76 (94) 95/62 (73) 108/69 (82) 118/71 (87) Pulse Ox 91 88 92 O2 Delivery Ventilator Ventilator Ventilator Ventilator 08/29/20 08/29/20 08/29/20 08/29/20 17:30 18:00 19:00 20:00 Pulse 76 76 78 Resp 20 B/P (MAP) 128/74 (92) 122/74 (90) 118/71 (87) Pulse Ox 92 92 94 O2 Delivery Ventilator Ventilator Ventilator Mechanical Ventilator 08/29/20 08/29/20 08/29/20 08/29/20 20:00 20:44 21:00 22:00 Temp 99.7 99.7 Pulse 69 68 68 Resp 20 B/P (MAP) 110/60 (77) 113/64 (80) 107/66 (80) Pulse Ox 92 93 93 94 O2 Delivery Ventilator Ventilator Ventilator Ventilator 08/29/20 08/30/20 08/30/20 08/30/20 23:00 00:00 00:00 00:48 Temp 99.2 99.2 Pulse 73 66 Resp 20 B/P (MAP) 109/59 (76) 104/56 (72) Pulse Ox 94 95 95 O2 Delivery Ventilator Mechanical Ventilator Ventilator Ventilator 08/30/20 08/30/20 08/30/20 08/30/20 01:00 02:00 03:00 04:00 Pulse 65 69 68 Resp 19 B/P (MAP) 118/65 (82) 133/70 (91) 123/70 (87) Pulse Ox 93 96 97 O2 Delivery Ventilator Ventilator Ventilator Mechanical Ventilator 08/30/20 08/30/20 08/30/20 08/30/20 04:00 04:15 04:50 05:00 Temp 99.4 99.4 Pulse 64 64 68 Resp 19 B/P (MAP) 127/70 (89) 113/67 (82) 121/72 (88) Pulse Ox 96 95 95 96 O2 Delivery Ventilator Ventilator Ventilator Ventilator 08/30/20 08/30/20 08/30/20 08/30/20 05:15 06:00 07:00 07:46 Pulse 76 66 64 Resp 18 18 B/P (MAP) 93/51 (65) 87/60 (69) 107/68 (81) Pulse Ox 94 95 98 98 O2 Delivery Ventilator Ventilator Ventilator Ventilator 08/30/20 08/30/20 08/30/20 08/30/20 08:00 08:00 09:00 10:00 Temp 99.1 99.1 Pulse 74 70 77 Resp 24 18 B/P (MAP) 106/58 (74) 78/47 (57) 102/55 (71) Pulse Ox 96 96 98 O2 Delivery Mechanical Ventilator Ventilator Ventilator Ventilator 08/30/20 08/30/20 08/30/20 08/30/20 10:55 11:11 11:23 12:00 Pulse Ox 94 97 97 O2 Delivery Ventilator Ventilator Ventilator Room Air O2 Flow Rate 3.0 Intake and Output 08/29/20 08/29/20 08/30/20 15:00 23:00 07:00 Intake Total 2000 ml 426.0 ml Output Total 800 ml 525 ml Balance 2000 ml -800 ml -99.0 ml Justicifation of Admission Dx: Justifications for Admission: Justification of Admission Dx: Yes (resp failure, intubated) ANABEL SMITH MD Aug 30, 2020 13:46
--- NOTE | 2020-08-30 16:00 | NUR ---
pt given ice chips and swallow assessed by this RN. pt tolerated well.
--- NOTE | 2020-08-30 16:18 | PDOC2 ---
NEUROLOGY CONSULT Date of Service DOS: DATE: 08/30/20 TIME: 16:10 Reason for Consult Reason for Consult: Altered mental status Referring Physician Referring Physician: Dr. Nettles Source Source: Caregiver (), Chart review, Patient History of Present Illness History of Present Illness The patient is a 64-year-old right-handed male admitted yesterday with altered mental status so severe that he needed intubation, but he has already been extubated. He had some left knee surgery last week and ever since has been acting strange his says. He cannot name the month of August, he says he can tell time. She was giving him morphine and hydrocodone, she stopped the morphine, but he still was confused just with hydrocodone. Prior to the surgery there is no dementia. He has never had a stroke or a seizure. He does not use alcohol or drugs. Past Medical History Cardiovascular: CAD, HTN, [place], Hyperlipidemia Pulmonary: Other (Sleep apnea) GI: Diverticulosis, GI bleed, Other (C. difficile) Heme/Onc: Cancer (Non-Hodgkin's lymphoma) Musculoskeletal: Osteoarthritis Renal/: UTI Past Surgical History Past Surgical History: Other (Deviated septum, coronary stent, GI bleeding, vasectomy, left knee) Family History Family History: Cancer Social History Social History , rare alcohol, ex-smoker Current Medications Current Medications Current Medications Ceftriaxone Sodium (Rocephin) 1 gm 1X ONCE IVP Last administered on 08/29/20at 08:36; Start 08/29/20 at 08:15; Stop 08/29/20 at 08:16; Status DC Dexamethasone Sodium Phosphate (Decadron) 10 mg 1X ONCE IVP Last administered on 08/29/20at 08:36; Start 08/29/20 at 08:15; Stop 08/29/20 at 08:16; Status DC Propofol 100 ml @ 0 mls/hr CONT PRN IV PER PROTOCOL; Start 08/29/20 at 07:45; Stop 08/29/20 at 07:56; Status DC Chlorhexidine Gluconate (Peridex) 15 ml BID MM ; Start 08/29/20 at 09:00; Stop 08/29/20 at 19:21; Status DC Midazolam HCl 100 ml @ 0 mls/hr 1X ONCE IV Last administered on 08/29/20at 09:08; Start 08/29/20 at 08:00; Stop 08/29/20 at 08:01; Status DC Midazolam HCl (Versed) 5 mg 1X ONCE NS Last administered on 08/29/20at 08:32; Start 08/29/20 at 08:00; Stop 08/29/20 at 08:01; Status DC Norepinephrine Bitartrate 8 mg/ Dextrose 258 ml @ 21.092 mls/ hr 1X ONCE IV Last administered on 08/29/20at 08:37; Start 08/29/20 at 08:30; Stop 08/29/20 at 17:41; Status DC Sodium Chloride 1,000 ml @ 1,000 mls/hr 1X ONCE IV Last administered on 08/29/20at 07:50; Start 08/29/20 at 08:30; Stop 08/29/20 at 09:29; Status DC Sodium Chloride 1,000 ml @ 1,000 mls/hr 1X ONCE IV Last administered on 08/29/20at 08:15; Start 08/29/20 at 08:30; Stop 08/29/20 at 09:29; Status DC Naloxone HCl (NARCAN 2mg SYRINGE) 4 mg 1X ONCE IV Last administered on 08/29/20at 08:53; Start 08/29/20 at 09:00; Stop 08/29/20 at 09:01; Status DC Etomidate (Amidate) 30 mg 1X ONCE IV Last administered on 08/29/20at 08:55; Start 08/29/20 at 09:00; Stop 08/29/20 at 09:01; Status DC Succinylcholine Chloride (Anectine) 200 mg 1X ONCE IV Last administered on 08/29/20at 08:54; Start 08/29/20 at 09:00; Stop 08/29/20 at 09:01; Status DC Ceftriaxone Sodium (Rocephin) 1 gm Q24H IVP Last administered on 08/30/20at 13:22; Start 08/29/20 at 13:00 Heparin Sodium (Porcine) (Heparin Sodium) 5,000 unit Q8HRS SQ Last administered on 08/30/20at 06:34; Start 08/29/20 at 14:15 Ondansetron HCl (Zofran) 4 mg PRN Q4HRS PRN IV NAUSEA/VOMITING; Start 08/29/20 at 14:15 Acetaminophen (Tylenol) 650 mg PRN Q4HRS PRN GT TEMP OVER 100.4F OR MILD PAIN; Start 08/29/20 at 14:15 Docusate Sodium (Colace) 100 mg PRN BID PRN PO HARD STOOLS; Start 08/29/20 at 14:15 Propofol 100 ml @ 0 mls/hr CONT PRN IV PER PROTOCOL Last administered on 08/30/20at 08:06; Start 08/29/20 at 15:30 Propofol 100 ml @ 0 mls/hr CONT PRN IV PER PROTOCOL; Start 08/29/20 at 15:30; Status UNV Norepinephrine Bitartrate 8 mg/ Dextrose 258 ml @ 21.092 mls/ hr CONT PRN IV PER PROTOCOL Last administered on 08/29/20at 17:45; Start 08/29/20 at 17:30 Active Scripts Active [Vancomycin Hcl] 125 MG/2.5 ML Solution 125 Mg PO [id number] Days 125mg po qid x 3 weeks then 125mg po tid x 1 week then 125mg po bid x 4 weeks Reported Hydrocodone-Apap 5-325 (Hydrocodone Bit/Acetaminophen) 1 Tab Tablet 1 Tab PO PRN Q6HRS PRN Ms Contin (Morphine Sulfate) 15 Mg Tablet.er 15 Mg PO Q12HR Alprazolam 0.25 Mg Tablet 0.25 Mg PO PRN Q6HRS PRN Meloxicam 15 Mg Tablet 1 Tab PO DAILY 30 Days Lyrica (Pregabalin) 300 Mg Capsule 1 Cap PO BID Aspirin 81 Mg Tab.chew 81 Mg PO DAILY Centrum Silver Tablet (Multivits-Min/Fa/Lycopene/Lut) 1 Each Tablet 1 Each PO DAILY Protonix (Pantoprazole Sodium) 40 Mg Tablet.dr 1 Tab PO DAILY Crestor (Rosuvastatin Calcium) 40 Mg Tablet 40 Mg PO DAILY Allergies Allergies: Coded Allergies: No Known Drug Allergies (Unverified , 04/28/16) ROS Review of System Negative for fever, chills, weight loss, shortness of breath, chest pain, in digestion, hematochezia, melena, and dysuria. Full 14-point review of systems is negative. Physical Exam Physical Examination General: Well-developed, well-nourished white male in no acute distress HEENT: Normocephalic andatraumatic. Temporal arteriespulsatile and nontender. Neck: Supple without bruit, no meningismus Musculoskeletal: Stability:see neurologic. Gait exam:see neurologic. Tone:see neurologic.Strength:see neurologic. Neurological: Mental Status: orientation, memory, attention span/concentration, language, fund of knowledge: He cannot name the hospital, is 4 days off on the date, names and repeats and comprehends well, speech is fluent. He says the president is Alee. Cranial Nerves:Pupils equal and reactive to light, extraocular movements areintact, visual [place] are full to confrontation. Facial sensation is normal. There is no facial asymmetry. Vestibulo-ocular reflex is intact. Palate elevates and tongue protrudes in midline. All other cranial related problems are negative except as mentioned before.Reflexes:2+ and symmetric with flexor plantar responses. Motor:5/5 strength with normal tone and bulk, left knee postop weakness. Coordination:Finger-nose finger and jrux-gm-prkg testing are normal. Rapid alternating movements and fine finger movements are intact. Gait:Not tested. Sensory:Normal pinprick, vibration, light touch, proprioception. Vitals VITALS Vital Signs Date Time Temp Pulse Resp B/P (MAP) Pulse Ox O2 Delivery O2 Flow Rate FiO2 08/30/20 12:00 Room Air 3.0 08/30/20 11:23 97 08/30/20 10:00 77 18 102/55 (71) 08/30/20 08:00 99.1 99.1 Labs Labs Laboratory Tests Test 08/29/20 07:35 08/29/20 07:37 08/29/20 07:40 08/29/20 09:05 O2 Saturation 95 % (92-99) 97 % (92-99) Arterial Blood pH 7.33 (7.35-7.45) 7.34 (7.35-7.45) Arterial Blood pCO2 at Patient Temp 49 mmHg (35-46) 42 mmHg (35-46) Arterial Blood pO2 at Patient Temp 83 mmHg (65-108) 103 mmHg (65-108) Arterial Blood HCO3 25 mmol/L (21-28) 22 mmol/L (21-28) Arterial Blood Base Excess -1 mmol/L (-3-3) -3 mmol/L (-3-3) Oxyhemoglobin 94.1 % Methemoglobin 0.3 % (0.0-1.9) Carbon Monoxide, Quantitative 0.6 % (0.0-1.9) FiO2 8l nc 60% vent Urine Collection Type U cath Urine Color Shanel Urine Clarity Turbid Urine pH 6.0 (<5.0-8.0) Urine Specific [place] 1.015 (1.000-1.030) Urine Protein 100 mg/dL (NEG-TRACE) Urine Glucose (UA) Negative mg/dL (NEG) Urine Ketones (Stick) Negative mg/dL (NEG) Urine Blood Negative (NEG) Urine Nitrite Negative (NEG) Urine Bilirubin Negative (NEG) Urine Urobilinogen Dipstick 1.0 mg/dL (0.2 mg/dL) Urine Leukocyte Esterase Negative (NEG) Urine RBC 0 /HPF (0-2) Urine WBC 0 /HPF (0-4) Urine Squamous Epithelial Cells Few /LPF Urine Bacteria 0 /HPF (0-FEW) Urine Opiates Screen Pos (NEG) Urine Methadone Screen Neg (NEG) Urine Barbiturates Neg (NEG) Urine Phencyclidine Screen Neg (NEG) Urine Amphetamine/Methamphetamine Neg (NEG) Urine Benzodiazepines Screen Pos (NEG) Urine Cocaine Screen Neg (NEG) Urine Cannabinoids Screen Neg (NEG) Urine Ethyl Alcohol Neg (NEG) White Blood Count 15.2 x10^3/uL (4.0-11.0) Red Blood Count 3.45 x10^6/uL (4.30-5.70) Hemoglobin 10.5 g/dL (13.0-17.5) Hematocrit 32.3 % (39.0-53.0) Mean Corpuscular Volume 94 fL (79-100) Mean Corpuscular Hemoglobin 30 pg (25-35) Mean Corpuscular Hemoglobin Concent 32 g/dL (31-37) Red Cell Distribution Width 13.7 % (11.5-14.5) Platelet Count 107 x10^3/uL (140-400) Neutrophils (%) (Auto) 87 % (31-73) Lymphocytes (%) (Auto) 5 % (24-48) Monocytes (%) (Auto) 8 % (0-9) Eosinophils (%) (Auto) 0 % (0-3) Basophils (%) (Auto) 0 % (0-3) Neutrophils # (Auto) 13.3 x10^3/uL (1.8-7.7) Lymphocytes # (Auto) 0.7 x10^3/uL (1.0-4.8) Monocytes # (Auto) 1.2 x10^3/uL (0.0-1.1) Eosinophils # (Auto) 0.0 x10^3/uL (0.0-0.7) Basophils # (Auto) 0.0 x10^3/uL (0.0-0.2) Segmented Neutrophils % 85 % (35-66) Band Neutrophils % 7 % (0-9) Lymphocytes % 5 % (24-48) Monocytes % 3 % (0-10) Platelet Estimate Adequate (ADEQUATE) Anisocytosis Present Macrocytosis Present Sodium Level 138 mmol/L (136-145) Potassium Level 4.9 mmol/L (3.5-5.1) Chloride Level 102 mmol/L (98-107) Carbon Dioxide Level 28 mmol/L (21-32) Anion Gap 8 (6-14) Blood Urea Nitrogen 22 mg/dL (8-26) Creatinine 2.1 mg/dL (0.7-1.3) Estimated GFR (Cockcroft-Gault) 31.8 BUN/Creatinine Ratio 10 (6-20) Glucose Level 130 mg/dL (70-99) Lactic Acid Level 1.7 mmol/L (0.4-2.0) Calcium Level 8.3 mg/dL (8.5-10.1) Total Bilirubin 1.0 mg/dL (0.2-1.0) Aspartate Amino Transf (AST/SGOT) 70 U/L (15-37) Alanine Aminotransferase (ALT/SGPT) 76 U/L (16-63) Alkaline Phosphatase 65 U/L (46-116) Lactate Dehydrogenase 337 U/L (85-227) Troponin I Quantitative 0.118 ng/mL (0.000-0.055) C-Reactive Protein, Quantitative 120.5 mg/L (0-3.3) [id number]-Type Natriuretic Peptide 1550 pg/mL (0-124) Total Protein 6.3 g/dL (6.4-8.2) Albumin 2.8 g/dL (3.4-5.0) Albumin/Globulin Ratio 0.8 (1.0-1.7) Test 08/29/20 09:10 08/29/20 17:48 08/30/20 02:15 08/30/20 07:55 Coronavirus (PCR) Not detected (Not Detected) Troponin I Quantitative 0.798 ng/mL (0.000-0.055) 0.586 ng/mL (0.000-0.055) O2 Saturation 96 % (92-99) Arterial Blood pH 7.51 (7.35-7.45) Arterial Blood pCO2 at Patient Temp 32 mmHg (35-46) Arterial Blood pO2 at Patient Temp 79 mmHg (65-108) Arterial Blood HCO3 25 mmol/L (21-28) Arterial Blood Base Excess 2 mmol/L (-3-3) FiO2 60% Test 08/30/20 08:00 08/30/20 11:27 White Blood Count 11.7 x10^3/uL (4.0-11.0) Red Blood Count 3.40 x10^6/uL (4.30-5.70) Hemoglobin 10.4 g/dL (13.0-17.5) Hematocrit 31.0 % (39.0-53.0) Mean Corpuscular Volume 91 fL (79-100) Mean Corpuscular Hemoglobin 31 pg (25-35) Mean Corpuscular Hemoglobin Concent 33 g/dL (31-37) Red Cell Distribution Width 13.3 % (11.5-14.5) Platelet Count 231 x10^3/uL (140-400) Neutrophils (%) (Auto) 88 % (31-73) Lymphocytes (%) (Auto) 4 % (24-48) Monocytes (%) (Auto) 8 % (0-9) Eosinophils (%) (Auto) 0 % (0-3) Basophils (%) (Auto) 0 % (0-3) Neutrophils # (Auto) 10.3 x10^3/uL (1.8-7.7) Lymphocytes # (Auto) 0.5 x10^3/uL (1.0-4.8) Monocytes # (Auto) 0.9 x10^3/uL (0.0-1.1) Eosinophils # (Auto) 0.0 x10^3/uL (0.0-0.7) Basophils # (Auto) 0.0 x10^3/uL (0.0-0.2) Sodium Level 141 mmol/L (136-145) Potassium Level 4.4 mmol/L (3.5-5.1) Chloride Level 104 mmol/L (98-107) Carbon Dioxide Level 26 mmol/L (21-32) Anion Gap 11 (6-14) Blood Urea Nitrogen 21 mg/dL (8-26) Creatinine 1.2 mg/dL (0.7-1.3) Estimated GFR (Cockcroft-Gault) 60.6 BUN/Creatinine Ratio 18 (6-20) Glucose Level 122 mg/dL (70-99) Calcium Level 8.5 mg/dL (8.5-10.1) Total Bilirubin 0.6 mg/dL (0.2-1.0) Aspartate Amino Transf (AST/SGOT) 49 U/L (15-37) Alanine Aminotransferase (ALT/SGPT) 65 U/L (16-63) Alkaline Phosphatase 58 U/L (46-116) Troponin I Quantitative 0.502 ng/mL (0.000-0.055) Total Protein 5.6 g/dL (6.4-8.2) Albumin 2.6 g/dL (3.4-5.0) Albumin/Globulin Ratio 0.9 (1.0-1.7) O2 Saturation 95 % (92-99) Arterial Blood pH 7.50 (7.35-7.45) Arterial Blood pCO2 at Patient Temp 36 mmHg (35-46) Arterial Blood pO2 at Patient Temp 72 mmHg (65-108) Arterial Blood HCO3 27 mmol/L (21-28) Arterial Blood Base Excess 4 mmol/L (-3-3) FiO2 60 Laboratory Tests Test 08/29/20 17:48 08/30/20 02:15 08/30/20 07:55 08/30/20 08:00 Troponin I Quantitative 0.798 ng/mL (0.000-0.055) 0.586 ng/mL (0.000-0.055) 0.502 ng/mL (0.000-0.055) O2 Saturation 96 % (92-99) Arterial Blood pH 7.51 (7.35-7.45) Arterial Blood pCO2 at Patient Temp 32 mmHg (35-46) Arterial Blood pO2 at Patient Temp 79 mmHg (65-108) Arterial Blood HCO3 25 mmol/L (21-28) Arterial Blood Base Excess 2 mmol/L (-3-3) FiO2 60% White Blood Count 11.7 x10^3/uL (4.0-11.0) Red Blood Count 3.40 x10^6/uL (4.30-5.70) Hemoglobin 10.4 g/dL (13.0-17.5) Hematocrit 31.0 % (39.0-53.0) Mean Corpuscular Volume 91 fL (79-100) Mean Corpuscular Hemoglobin 31 pg (25-35) Mean Corpuscular Hemoglobin Concent 33 g/dL (31-37) Red Cell Distribution Width 13.3 % (11.5-14.5) Platelet Count 231 x10^3/uL (140-400) Neutrophils (%) (Auto) 88 % (31-73) Lymphocytes (%) (Auto) 4 % (24-48) Monocytes (%) (Auto) 8 % (0-9) Eosinophils (%) (Auto) 0 % (0-3) Basophils (%) (Auto) 0 % (0-3) Neutrophils # (Auto) 10.3 x10^3/uL (1.8-7.7) Lymphocytes # (Auto) 0.5 x10^3/uL (1.0-4.8) Monocytes # (Auto) 0.9 x10^3/uL (0.0-1.1) Eosinophils # (Auto) 0.0 x10^3/uL (0.0-0.7) Basophils # (Auto) 0.0 x10^3/uL (0.0-0.2) Sodium Level 141 mmol/L (136-145) Potassium Level 4.4 mmol/L (3.5-5.1) Chloride Level 104 mmol/L (98-107) Carbon Dioxide Level 26 mmol/L (21-32) Anion Gap 11 (6-14) Blood Urea Nitrogen 21 mg/dL (8-26) Creatinine 1.2 mg/dL (0.7-1.3) Estimated GFR (Cockcroft-Gault) 60.6 BUN/Creatinine Ratio 18 (6-20) Glucose Level 122 mg/dL (70-99) Calcium Level 8.5 mg/dL (8.5-10.1) Total Bilirubin 0.6 mg/dL (0.2-1.0) Aspartate Amino Transf (AST/SGOT) 49 U/L (15-37) Alanine Aminotransferase (ALT/SGPT) 65 U/L (16-63) Alkaline Phosphatase 58 U/L (46-116) Total Protein 5.6 g/dL (6.4-8.2) Albumin 2.6 g/dL (3.4-5.0) Albumin/Globulin Ratio 0.9 (1.0-1.7) Test 08/30/20 11:27 O2 Saturation 95 % (92-99) Arterial Blood pH 7.50 (7.35-7.45) Arterial Blood pCO2 at Patient Temp 36 mmHg (35-46) Arterial Blood pO2 at Patient Temp 72 mmHg (65-108) Arterial Blood HCO3 27 mmol/L (21-28) Arterial Blood Base Excess 4 mmol/L (-3-3) FiO2 [address] Head without IV contrast INDICATION: Reason: obtunded, recent surgery, hypoxic / Spl. Instructions: / History: TECHNIQUE: Multi-detector row CT images were obtained of the head without the use of IV contrast. All CT scans performed at this facility utilize dose optimization techniques as appropriate to the exam, including the following: Automated exposure control and adjustment of the mA and/or KV according to patient size (this includes techniques or standardized protocols for targeted exams where dose is indication/reason for exam). COMPARISON: Noncontrast head CT 08/08/2016 FINDINGS: BRAIN PARENCHYMA: No evidence of acute intraparenchymal hemorrhage or infarct. No abnormal parenchymal density or mass. VENTRICLES & EXTRA-AXIAL SPACES: Ventricles are within normal limits. Basilar cisterns are patent. No pathologic extra-axial fluid collection or mass. ORBITS: Orbital contents are unremarkable. SINUSES: Paranasal sinus mucosal thickening is present with frothy fluid in the bilateral maxillary antra. The mastoids are clear. OSSEOUS & SOFT TISSUES: Calvarium and skull base are intact. IMPRESSION: 1. No acute intracranial pathology. 2. Bilateral acute maxillary sinusitis. Assessment/Plan Assessment/Plan Impression: Encephalopathy due to narcotics and anesthesia reaction, I do not think he has had a new stroke, a stroke large enough to cause this kind of aphasia should have shown up on the head CT. Furthermore, it is bizarre for aphasia to, for instance, make the patient name the president as Alee. I doubt that he has ongoing seizures or central nervous system infection. Recommendations: Observe off narcotics Speech therapy evaluation Additional studies such as MRI of the brain if he is no better in the next few days or weeks. Fully discussed with patient's . Thank you for letting me help with the patient's care. DWIGHT KHAN MD Aug 30, 2020 16:18
--- NOTE | 2020-08-30 18:26 | NUR ---
pt very confused, does not try to climb out of bed but does pull at wires. pt is now med/surg, tele and continuous pulse ox dc'd. pt pulled off oxygen spo2 checked on room air, 94%.
--- NOTE | 2020-08-30 19:30 | NUR ---
WHILE IN REPORT, THIS RN HEARD A POP, PT VERY CONFUSED PULLED HIS NUGENT OUT WITH BALLOON INTACT, NOW PT BLEEDING FROM PENIS. PT ABLE TO STATE NAME, , BUT VERBALIZED INCORRECT PRESIDENT NAME, UNABLE TO VERBALIZED WHERE HE WAS. PT REORIENTED, WILL CONT TO MONITOR PT STATUS AND SAFETY. PMRN
--- NOTE | 2020-08-30 23:15 | NUR ---
BIPAP APPLIED TO PT, PT ONLY WORE BIPAP FOR APPROX. 5MINS, APPLIED 2LITERS OXYGEN D/T PT HAVING SLEEP APNEA AT NIGHT AND HE WEARS A CPAP MACHINE AT HOME. WILL CONT TO MONITOR SAFETY AND STATUS. PMRN
[2020-08-31] VITALS (7 sets, daily range): BP systolic 109–125; BP diastolic 57–72
--- NOTE | 2020-08-31 05:28 | NUR ---
Report called to Shae AVALOS, pt transferred to room 203 via bed 2 person assist with belongings. pmrn
[2020-08-31] MEDS: HEPARIN for SUB-Q USE 5,000 UNIT/ML VIAL. SQ SCH ×3 (06:18→22:16)
[2020-08-31 07:32] LABS: BASO % 0 % (0-3); EOS # 0.1 x10^3/uL (0.0-0.7); EOS % 1 % (0-3); HEMATOCRIT 31.4 % (39.0-53.0); HEMOGLOBIN 10.4 g/dL (13.0-17.5); LYMPH # 0.7 x10^3/uL (1.0-4.8); LYMPH % 8 % (24-48); MEAN CORPUSCULAR HEMOGLOBIN 31 pg (25-35); MEAN CORPUSCULAR HGB CONC 33 g/dL (31-37); MEAN CORPUSCULAR VOLUME 94 fL (79-100); MONO # 0.8 x10^3/uL (0.0-1.1); MONO % 8 % (0-9); NEUT # 8.3 x10^3/uL (1.8-7.7); NEUT % 83 % (31-73); PLATELET COUNT 215 x10^3/uL (140-400); RED BLOOD COUNT 3.35 x10^6/uL (4.30-5.70); RED CELL DISTRIBUTION WIDTH 13.8 % (11.5-14.5)
[2020-08-31 08:32] LABS: ALBUMIN 2.9 g/dL (3.4-5.0); ALBUMIN/GLOBULIN RATIO 0.8 (1.0-1.7); CALCIUM 8.7 mg/dL (8.5-10.1); CREATININE 1.4 mg/dL (0.7-1.3); GFR 50.7; POTASSIUM 4.3 mmol/L (3.5-5.1); TOTAL BILIRUBIN 0.7 mg/dL (0.2-1.0); TOTAL PROTEIN 6.5 g/dL (6.4-8.2)
--- NOTE | 2020-08-31 09:21 | PDOC ---
PROGRESS NOTES Date of Service DATE: 08/31/20 TIME: 09:17 Assessment Problems Medical Problems: (1) Acute respiratory failure with hypoxia Status: Acute (2) Altered mental status Status: Acute Encephalopathy due to narcotics and anesthesia reaction, I do not think he has had a new stroke, a stroke large enough to cause this kind of aphasia should have shown up on the head CT. Furthermore, it is bizarre for aphasia to, for instance, make the patient name the president as Alee, at least he has the right last name for the president today. I doubt that he has ongoing seizures or central nervous system infection. Plan Observe off narcotics, use nonnarcotic medications for his pain Okay for discharge later today Speech therapy evaluation Additional studies such as MRI of the brain if he is no better in the next few days or weeks. Follow-up with neurology at , his preferred hospital, if no better in a few weeks. Fully discussed with patient's . She is worried that this is the new onset of dementia, I do tell her that it is possible for dementia to manifest itself in this kind of stressful situation, but hopefully he will make a full recovery in the next few days. Subjective Complains of knee pain, understands that narcotics are not a good idea for him Objective Vital Signs Date Time Temp Pulse Resp B/P (MAP) Pulse Ox O2 Delivery O2 Flow Rate FiO2 08/31/20 07:00 99.0 74 18 122/60 (80) 94 Room Air 2.0 99.0 Intake and Output 08/31/20 07:00 Intake Total 300 ml Output Total 1500 ml Balance -1200 ml Intake Oral 300 ml Output Urine Total 1500 ml # Voids 7 # Bowel Movements 2 PHYSICAL EXAM Alert. Oriented to time and person. He knows that he is in the hospital but does not know its name. He can dial his own phone number and converse with his . Now he says the president is "Nathaniel Perez." PERRL. EOMI. CN: no focal findings. Muscle tone: normal. Muscle strength: 5/5 DTR: 2+, omit left knee just operated on Plantar reflex: Flexor Gait: not examined in bed. Sensory exam: no abnormal findings. No cerebellar signs elicited. Review of Relevant I have reviewed the following items bethanie (where applicable) has been applied. Labs Laboratory Tests Test 08/29/20 17:48 08/30/20 02:15 08/30/20 07:55 08/30/20 08:00 Troponin I Quantitative 0.798 ng/mL (0.000-0.055) 0.586 ng/mL (0.000-0.055) 0.502 ng/mL (0.000-0.055) O2 Saturation 96 % (92-99) Arterial Blood pH 7.51 (7.35-7.45) Arterial Blood pCO2 at Patient Temp 32 mmHg (35-46) Arterial Blood pO2 at Patient Temp 79 mmHg (65-108) Arterial Blood HCO3 25 mmol/L (21-28) Arterial Blood Base Excess 2 mmol/L (-3-3) FiO2 60% White Blood Count 11.7 x10^3/uL (4.0-11.0) Red Blood Count 3.40 x10^6/uL (4.30-5.70) Hemoglobin 10.4 g/dL (13.0-17.5) Hematocrit 31.0 % (39.0-53.0) Mean Corpuscular Volume 91 fL (79-100) Mean Corpuscular Hemoglobin 31 pg (25-35) Mean Corpuscular Hemoglobin Concent 33 g/dL (31-37) Red Cell Distribution Width 13.3 % (11.5-14.5) Platelet Count 231 x10^3/uL (140-400) Neutrophils (%) (Auto) 88 % (31-73) Lymphocytes (%) (Auto) 4 % (24-48) Monocytes (%) (Auto) 8 % (0-9) Eosinophils (%) (Auto) 0 % (0-3) Basophils (%) (Auto) 0 % (0-3) Neutrophils # (Auto) 10.3 x10^3/uL (1.8-7.7) Lymphocytes # (Auto) 0.5 x10^3/uL (1.0-4.8) Monocytes # (Auto) 0.9 x10^3/uL (0.0-1.1) Eosinophils # (Auto) 0.0 x10^3/uL (0.0-0.7) Basophils # (Auto) 0.0 x10^3/uL (0.0-0.2) Sodium Level 141 mmol/L (136-145) Potassium Level 4.4 mmol/L (3.5-5.1) Chloride Level 104 mmol/L (98-107) Carbon Dioxide Level 26 mmol/L (21-32) Anion Gap 11 (6-14) Blood Urea Nitrogen 21 mg/dL (8-26) Creatinine 1.2 mg/dL (0.7-1.3) Estimated GFR (Cockcroft-Gault) 60.6 BUN/Creatinine Ratio 18 (6-20) Glucose Level 122 mg/dL (70-99) Calcium Level 8.5 mg/dL (8.5-10.1) Total Bilirubin 0.6 mg/dL (0.2-1.0) Aspartate Amino Transf (AST/SGOT) 49 U/L (15-37) Alanine Aminotransferase (ALT/SGPT) 65 U/L (16-63) Alkaline Phosphatase 58 U/L (46-116) Total Protein 5.6 g/dL (6.4-8.2) Albumin 2.6 g/dL (3.4-5.0) Albumin/Globulin Ratio 0.9 (1.0-1.7) Test 08/30/20 11:27 08/31/20 07:08 O2 Saturation 95 % (92-99) Arterial Blood pH 7.50 (7.35-7.45) Arterial Blood pCO2 at Patient Temp 36 mmHg (35-46) Arterial Blood pO2 at Patient Temp 72 mmHg (65-108) Arterial Blood HCO3 27 mmol/L (21-28) Arterial Blood Base Excess 4 mmol/L (-3-3) FiO2 60 White Blood Count 10.0 x10^3/uL (4.0-11.0) Red Blood Count 3.35 x10^6/uL (4.30-5.70) Hemoglobin 10.4 g/dL (13.0-17.5) Hematocrit 31.4 % (39.0-53.0) Mean Corpuscular Volume 94 fL (79-100) Mean Corpuscular Hemoglobin 31 pg (25-35) Mean Corpuscular Hemoglobin Concent 33 g/dL (31-37) Red Cell Distribution Width 13.8 % (11.5-14.5) Platelet Count 215 x10^3/uL (140-400) Neutrophils (%) (Auto) 83 % (31-73) Lymphocytes (%) (Auto) 8 % (24-48) Monocytes (%) (Auto) 8 % (0-9) Eosinophils (%) (Auto) 1 % (0-3) Basophils (%) (Auto) 0 % (0-3) Neutrophils # (Auto) 8.3 x10^3/uL (1.8-7.7) Lymphocytes # (Auto) 0.7 x10^3/uL (1.0-4.8) Monocytes # (Auto) 0.8 x10^3/uL (0.0-1.1) Eosinophils # (Auto) 0.1 x10^3/uL (0.0-0.7) Basophils # (Auto) 0.0 x10^3/uL (0.0-0.2) Sodium Level 143 mmol/L (136-145) Potassium Level 4.3 mmol/L (3.5-5.1) Chloride Level 105 mmol/L (98-107) Carbon Dioxide Level 29 mmol/L (21-32) Anion Gap 9 (6-14) Blood Urea Nitrogen 22 mg/dL (8-26) Creatinine 1.4 mg/dL (0.7-1.3) Estimated GFR (Cockcroft-Gault) 50.7 BUN/Creatinine Ratio 16 (6-20) Glucose Level 108 mg/dL (70-99) Calcium Level 8.7 mg/dL (8.5-10.1) Total Bilirubin 0.7 mg/dL (0.2-1.0) Aspartate Amino Transf (AST/SGOT) 64 U/L (15-37) Alanine Aminotransferase (ALT/SGPT) 64 U/L (16-63) Alkaline Phosphatase 60 U/L (46-116) Total Protein 6.5 g/dL (6.4-8.2) Albumin 2.9 g/dL (3.4-5.0) Albumin/Globulin Ratio 0.8 (1.0-1.7) Laboratory Tests Test 08/30/20 11:27 08/31/20 07:08 O2 Saturation 95 % (92-99) Arterial Blood pH 7.50 (7.35-7.45) Arterial Blood pCO2 at Patient Temp 36 mmHg (35-46) Arterial Blood pO2 at Patient Temp 72 mmHg (65-108) Arterial Blood HCO3 27 mmol/L (21-28) Arterial Blood Base Excess 4 mmol/L (-3-3) FiO2 60 White Blood Count 10.0 x10^3/uL (4.0-11.0) Red Blood Count 3.35 x10^6/uL (4.30-5.70) Hemoglobin 10.4 g/dL (13.0-17.5) Hematocrit 31.4 % (39.0-53.0) Mean Corpuscular Volume 94 fL (79-100) Mean Corpuscular Hemoglobin 31 pg (25-35) Mean Corpuscular Hemoglobin Concent 33 g/dL (31-37) Red Cell Distribution Width 13.8 % (11.5-14.5) Platelet Count 215 x10^3/uL (140-400) Neutrophils (%) (Auto) 83 % (31-73) Lymphocytes (%) (Auto) 8 % (24-48) Monocytes (%) (Auto) 8 % (0-9) Eosinophils (%) (Auto) 1 % (0-3) Basophils (%) (Auto) 0 % (0-3) Neutrophils # (Auto) 8.3 x10^3/uL (1.8-7.7) Lymphocytes # (Auto) 0.7 x10^3/uL (1.0-4.8) Monocytes # (Auto) 0.8 x10^3/uL (0.0-1.1) Eosinophils # (Auto) 0.1 x10^3/uL (0.0-0.7) Basophils # (Auto) 0.0 x10^3/uL (0.0-0.2) Sodium Level 143 mmol/L (136-145) Potassium Level 4.3 mmol/L (3.5-5.1) Chloride Level 105 mmol/L (98-107) Carbon Dioxide Level 29 mmol/L (21-32) Anion Gap 9 (6-14) Blood Urea Nitrogen 22 mg/dL (8-26) Creatinine 1.4 mg/dL (0.7-1.3) Estimated GFR (Cockcroft-Gault) 50.7 BUN/Creatinine Ratio 16 (6-20) Glucose Level 108 mg/dL (70-99) Calcium Level 8.7 mg/dL (8.5-10.1) Total Bilirubin 0.7 mg/dL (0.2-1.0) Aspartate Amino Transf (AST/SGOT) 64 U/L (15-37) Alanine Aminotransferase (ALT/SGPT) 64 U/L (16-63) Alkaline Phosphatase 60 U/L (46-116) Total Protein 6.5 g/dL (6.4-8.2) Albumin 2.9 g/dL (3.4-5.0) Albumin/Globulin Ratio 0.8 (1.0-1.7) Microbiology 08/29/20 Blood Culture - Preliminary, Resulted NO GROWTH AFTER 2 DAYS Medications Current Medications Ceftriaxone Sodium (Rocephin) 1 gm 1X ONCE IVP Last administered on 08/29/20at 08:36; Start 08/29/20 at 08:15; Stop 08/29/20 at 08:16; Status DC Dexamethasone Sodium Phosphate (Decadron) 10 mg 1X ONCE IVP Last administered on 08/29/20at 08:36; Start 08/29/20 at 08:15; Stop 08/29/20 at 08:16; Status DC Propofol 100 ml @ 0 mls/hr CONT PRN IV PER PROTOCOL; Start 08/29/20 at 07:45; Stop 08/29/20 at 07:56; Status DC Chlorhexidine Gluconate (Peridex) 15 ml BID MM ; Start 08/29/20 at 09:00; Stop 08/29/20 at 19:21; Status DC Midazolam HCl 100 ml @ 0 mls/hr 1X ONCE IV Last administered on 08/29/20at 09:08; Start 08/29/20 at 08:00; Stop 08/29/20 at 08:01; Status DC Midazolam HCl (Versed) 5 mg 1X ONCE NS Last administered on 08/29/20at 08:32; Start 08/29/20 at 08:00; Stop 08/29/20 at 08:01; Status DC Norepinephrine Bitartrate 8 mg/ Dextrose 258 ml @ 21.092 mls/ hr 1X ONCE IV Last administered on 08/29/20at 08:37; Start 08/29/20 at 08:30; Stop 08/29/20 at 17:41; Status DC Sodium Chloride 1,000 ml @ 1,000 mls/hr 1X ONCE IV Last administered on 08/29/20at 07:50; Start 08/29/20 at 08:30; Stop 08/29/20 at 09:29; Status DC Sodium Chloride 1,000 ml @ 1,000 mls/hr 1X ONCE IV Last administered on 08/29/20at 08:15; Start 08/29/20 at 08:30; Stop 08/29/20 at 09:29; Status DC Naloxone HCl (NARCAN 2mg SYRINGE) 4 mg 1X ONCE IV Last administered on 08/29/20at 08:53; Start 08/29/20 at 09:00; Stop 08/29/20 at 09:01; Status DC Etomidate (Amidate) 30 mg 1X ONCE IV Last administered on 08/29/20at 08:55; Start 08/29/20 at 09:00; Stop 08/29/20 at 09:01; Status DC Succinylcholine Chloride (Anectine) 200 mg 1X ONCE IV Last administered on 08/29/20at 08:54; Start 08/29/20 at 09:00; Stop 08/29/20 at 09:01; Status DC Ceftriaxone Sodium (Rocephin) 1 gm Q24H IVP Last administered on 08/30/20at 13:22; Start 08/29/20 at 13:00 Heparin Sodium (Porcine) (Heparin Sodium) 5,000 unit Q8HRS SQ Last administered on 08/31/20at 06:18; Start 08/29/20 at 14:15 Ondansetron HCl (Zofran) 4 mg PRN Q4HRS PRN IV NAUSEA/VOMITING; Start 08/29/20 at 14:15 Acetaminophen (Tylenol) 650 mg PRN Q4HRS PRN GT TEMP OVER 100.4F OR MILD PAIN; Start 08/29/20 at 14:15 Docusate Sodium (Colace) 100 mg PRN BID PRN PO HARD STOOLS; Start 08/29/20 at 14:15 Propofol 100 ml @ 0 mls/hr CONT PRN IV PER PROTOCOL Last administered on 08/30/20at 08:06; Start 08/29/20 at 15:30; Stop 08/30/20 at 16:31; Status DC Propofol 100 ml @ 0 mls/hr CONT PRN IV PER PROTOCOL; Start 08/29/20 at 15:30; Status UNV Norepinephrine Bitartrate 8 mg/ Dextrose 258 ml @ 21.092 mls/ hr CONT PRN IV PER PROTOCOL Last administered on 08/29/20at 17:45; Start 08/29/20 at 17:30; Stop 08/30/20 at 16:31; Status DC Olanzapine (ZyPREXA ZYDIS) 5 mg PRN BID PRN PO ANXIETY / AGITATION Last administered on 08/31/20at 06:14; Start 08/31/20 at 06:15 Active Scripts Active [Vancomycin Hcl] 125 MG/2.5 ML Solution 125 Mg PO [id number] Days 125mg po qid x 3 weeks then 125mg po tid x 1 week then 125mg po bid x 4 weeks Reported Hydrocodone-Apap 5-325 (Hydrocodone Bit/Acetaminophen) 1 Tab Tablet 1 Tab PO PRN Q6HRS PRN Ms Contin (Morphine Sulfate) 15 Mg Tablet.er 15 Mg PO Q12HR Alprazolam 0.25 Mg Tablet 0.25 Mg PO PRN Q6HRS PRN Meloxicam 15 Mg Tablet 1 Tab PO DAILY 30 Days Lyrica (Pregabalin) 300 Mg Capsule 1 Cap PO BID Aspirin 81 Mg Tab.chew 81 Mg PO DAILY Centrum Silver Tablet (Multivits-Min/Fa/Lycopene/Lut) 1 Each Tablet 1 Each PO DAILY Protonix (Pantoprazole Sodium) 40 Mg Tablet. 1 Tab PO DAILY Crestor (Rosuvastatin Calcium) 40 Mg Tablet 40 Mg PO DAILY Vitals/I & O Vital Sign - Last 24 Hours 08/30/20 08/30/20 08/30/20 08/30/20 10:00 10:55 11:00 11:11 Pulse 77 76 Resp 18 18 B/P (MAP) 102/55 (71) 97/60 (72) Pulse Ox 98 94 98 97 O2 Delivery Ventilator Ventilator Ventilator Ventilator 08/30/20 08/30/20 08/30/20 08/30/20 11:23 12:00 12:00 13:00 Temp 99.2 99.2 Pulse 72 76 Resp 18 18 B/P (MAP) 113/62 (79) 118/59 (78) Pulse Ox 97 94 93 O2 Delivery Ventilator Nasal Cannula Room Air Nasal Cannula O2 Flow Rate 3.0 3.0 3.0 08/30/20 08/30/20 08/30/20 08/30/20 14:00 15:00 16:00 18:26 Temp 98.9 98.9 Pulse 82 82 82 Resp 18 16 18 B/P (MAP) 127/67 (87) 125/69 (87) 124/76 (92) Pulse Ox 92 93 94 94 O2 Delivery Nasal Cannula Nasal Cannula Nasal Cannula Room Air O2 Flow Rate 3.0 3.0 3.0 08/30/20 08/30/20 08/31/20 08/31/20 19:41 21:00 00:23 03:37 Temp 97.5 98.6 98.7 97.5 98.6 98.7 Pulse 80 88 80 Resp 18 24 19 B/P (MAP) 113/68 (83) 125/72 (89) 125/59 (81) Pulse Ox 93 93 97 O2 Delivery Room Air Room Air Room Air Room Air O2 Flow Rate 2.0 08/31/20 08/31/20 05:30 07:00 Temp 99.0 99.0 Pulse 74 Resp 18 B/P (MAP) 122/60 (80) Pulse Ox 94 O2 Delivery Nasal Cannula Room Air O2 Flow Rate 2.0 2.0 Intake and Output 08/30/20 08/30/20 08/31/20 15:00 23:00 07:00 Intake Total 130 ml 170 ml Output Total 300 ml 1200 ml Balance -300 ml -1070 ml 170 ml Justicifation of Admission Dx: Justifications for Admission: Justification of Admission Dx: Yes (resp failure, intubated) DWIGHT KHAN MD Aug 31, 2020 09:21
--- NOTE | 2020-08-31 10:36 | NUR ---
SS following up with discharge planning. SS reviewed pt chart and discussed with pt RN. Pt is currently on room air. COVID19 negative. Pt on IV Rocephin. PT/OT/ST ordered. PT recommended home with home healthcare. SS met with pt and pt's spouse in room to discuss discharge planning. Pt's spouse requesting transfer to because all pt's providers are at . SS contacted transfer team, , and made request for transfer. reported that they were declining pt for transfer due to capacity. Pt's spouse notified. Pt and pt's spouse agreeable to home healthcare at home. Pt's daughter contacting pt's daughter who is an RN and will notify SS of what home healthcare company they choose. SS will continue to follow for discharge planning.
--- NOTE | 2020-08-31 11:09 | PDOC ---
PULMONARY PROGRESS NOTES DATE: 08/31/20 TIME: 10:59 Subjective PT. now extubated on 08/30/20 on room air no overnight concerns from nursing Vitals Vital Signs Date Time Temp Pulse Resp B/P (MAP) Pulse Ox O2 Delivery O2 Flow Rate FiO2 08/31/20 07:00 99.0 74 18 122/60 (80) 94 Room Air 2.0 99.0 ROS: No Nausea, No Chest Pain, No Abdominal Pain, No Increase Cough General: Alert, Oriented X4 Lungs: Clear Cardiovascular: S1, S2 Abdomen: Soft, Non-tender Neuro Exam: Alert, Oriented Skin: Warm, Dry Labs Laboratory Tests Test 08/29/20 17:48 08/30/20 02:15 08/30/20 07:55 08/30/20 08:00 Troponin I Quantitative 0.798 ng/mL (0.000-0.055) 0.586 ng/mL (0.000-0.055) 0.502 ng/mL (0.000-0.055) O2 Saturation 96 % (92-99) Arterial Blood pH 7.51 (7.35-7.45) Arterial Blood pCO2 at Patient Temp 32 mmHg (35-46) Arterial Blood pO2 at Patient Temp 79 mmHg (65-108) Arterial Blood HCO3 25 mmol/L (21-28) Arterial Blood Base Excess 2 mmol/L (-3-3) FiO2 60% White Blood Count 11.7 x10^3/uL (4.0-11.0) Red Blood Count 3.40 x10^6/uL (4.30-5.70) Hemoglobin 10.4 g/dL (13.0-17.5) Hematocrit 31.0 % (39.0-53.0) Mean Corpuscular Volume 91 fL (79-100) Mean Corpuscular Hemoglobin 31 pg (25-35) Mean Corpuscular Hemoglobin Concent 33 g/dL (31-37) Red Cell Distribution Width 13.3 % (11.5-14.5) Platelet Count 231 x10^3/uL (140-400) Neutrophils (%) (Auto) 88 % (31-73) Lymphocytes (%) (Auto) 4 % (24-48) Monocytes (%) (Auto) 8 % (0-9) Eosinophils (%) (Auto) 0 % (0-3) Basophils (%) (Auto) 0 % (0-3) Neutrophils # (Auto) 10.3 x10^3/uL (1.8-7.7) Lymphocytes # (Auto) 0.5 x10^3/uL (1.0-4.8) Monocytes # (Auto) 0.9 x10^3/uL (0.0-1.1) Eosinophils # (Auto) 0.0 x10^3/uL (0.0-0.7) Basophils # (Auto) 0.0 x10^3/uL (0.0-0.2) Sodium Level 141 mmol/L (136-145) Potassium Level 4.4 mmol/L (3.5-5.1) Chloride Level 104 mmol/L (98-107) Carbon Dioxide Level 26 mmol/L (21-32) Anion Gap 11 (6-14) Blood Urea Nitrogen 21 mg/dL (8-26) Creatinine 1.2 mg/dL (0.7-1.3) Estimated GFR (Cockcroft-Gault) 60.6 BUN/Creatinine Ratio 18 (6-20) Glucose Level 122 mg/dL (70-99) Calcium Level 8.5 mg/dL (8.5-10.1) Total Bilirubin 0.6 mg/dL (0.2-1.0) Aspartate Amino Transf (AST/SGOT) 49 U/L (15-37) Alanine Aminotransferase (ALT/SGPT) 65 U/L (16-63) Alkaline Phosphatase 58 U/L (46-116) Total Protein 5.6 g/dL (6.4-8.2) Albumin 2.6 g/dL (3.4-5.0) Albumin/Globulin Ratio 0.9 (1.0-1.7) Test 08/30/20 11:27 08/31/20 07:08 O2 Saturation 95 % (92-99) Arterial Blood pH 7.50 (7.35-7.45) Arterial Blood pCO2 at Patient Temp 36 mmHg (35-46) Arterial Blood pO2 at Patient Temp 72 mmHg (65-108) Arterial Blood HCO3 27 mmol/L (21-28) Arterial Blood Base Excess 4 mmol/L (-3-3) FiO2 60 White Blood Count 10.0 x10^3/uL (4.0-11.0) Red Blood Count 3.35 x10^6/uL (4.30-5.70) Hemoglobin 10.4 g/dL (13.0-17.5) Hematocrit 31.4 % (39.0-53.0) Mean Corpuscular Volume 94 fL (79-100) Mean Corpuscular Hemoglobin 31 pg (25-35) Mean Corpuscular Hemoglobin Concent 33 g/dL (31-37) Red Cell Distribution Width 13.8 % (11.5-14.5) Platelet Count 215 x10^3/uL (140-400) Neutrophils (%) (Auto) 83 % (31-73) Lymphocytes (%) (Auto) 8 % (24-48) Monocytes (%) (Auto) 8 % (0-9) Eosinophils (%) (Auto) 1 % (0-3) Basophils (%) (Auto) 0 % (0-3) Neutrophils # (Auto) 8.3 x10^3/uL (1.8-7.7) Lymphocytes # (Auto) 0.7 x10^3/uL (1.0-4.8) Monocytes # (Auto) 0.8 x10^3/uL (0.0-1.1) Eosinophils # (Auto) 0.1 x10^3/uL (0.0-0.7) Basophils # (Auto) 0.0 x10^3/uL (0.0-0.2) Sodium Level 143 mmol/L (136-145) Potassium Level 4.3 mmol/L (3.5-5.1) Chloride Level 105 mmol/L (98-107) Carbon Dioxide Level 29 mmol/L (21-32) Anion Gap 9 (6-14) Blood Urea Nitrogen 22 mg/dL (8-26) Creatinine 1.4 mg/dL (0.7-1.3) Estimated GFR (Cockcroft-Gault) 50.7 BUN/Creatinine Ratio 16 (6-20) Glucose Level 108 mg/dL (70-99) Calcium Level 8.7 mg/dL (8.5-10.1) Total Bilirubin 0.7 mg/dL (0.2-1.0) Aspartate Amino Transf (AST/SGOT) 64 U/L (15-37) Alanine Aminotransferase (ALT/SGPT) 64 U/L (16-63) Alkaline Phosphatase 60 U/L (46-116) Total Protein 6.5 g/dL (6.4-8.2) Albumin 2.9 g/dL (3.4-5.0) Albumin/Globulin Ratio 0.8 (1.0-1.7) Laboratory Tests Test 08/30/20 11:27 08/31/20 07:08 O2 Saturation 95 % (92-99) Arterial Blood pH 7.50 (7.35-7.45) Arterial Blood pCO2 at Patient Temp 36 mmHg (35-46) Arterial Blood pO2 at Patient Temp 72 mmHg (65-108) Arterial Blood HCO3 27 mmol/L (21-28) Arterial Blood Base Excess 4 mmol/L (-3-3) FiO2 60 White Blood Count 10.0 x10^3/uL (4.0-11.0) Red Blood Count 3.35 x10^6/uL (4.30-5.70) Hemoglobin 10.4 g/dL (13.0-17.5) Hematocrit 31.4 % (39.0-53.0) Mean Corpuscular Volume 94 fL (79-100) Mean Corpuscular Hemoglobin 31 pg (25-35) Mean Corpuscular Hemoglobin Concent 33 g/dL (31-37) Red Cell Distribution Width 13.8 % (11.5-14.5) Platelet Count 215 x10^3/uL (140-400) Neutrophils (%) (Auto) 83 % (31-73) Lymphocytes (%) (Auto) 8 % (24-48) Monocytes (%) (Auto) 8 % (0-9) Eosinophils (%) (Auto) 1 % (0-3) Basophils (%) (Auto) 0 % (0-3) Neutrophils # (Auto) 8.3 x10^3/uL (1.8-7.7) Lymphocytes # (Auto) 0.7 x10^3/uL (1.0-4.8) Monocytes # (Auto) 0.8 x10^3/uL (0.0-1.1) Eosinophils # (Auto) 0.1 x10^3/uL (0.0-0.7) Basophils # (Auto) 0.0 x10^3/uL (0.0-0.2) Sodium Level 143 mmol/L (136-145) Potassium Level 4.3 mmol/L (3.5-5.1) Chloride Level 105 mmol/L (98-107) Carbon Dioxide Level 29 mmol/L (21-32) Anion Gap 9 (6-14) Blood Urea Nitrogen 22 mg/dL (8-26) Creatinine 1.4 mg/dL (0.7-1.3) Estimated GFR (Cockcroft-Gault) 50.7 BUN/Creatinine Ratio 16 (6-20) Glucose Level 108 mg/dL (70-99) Calcium Level 8.7 mg/dL (8.5-10.1) Total Bilirubin 0.7 mg/dL (0.2-1.0) Aspartate Amino Transf (AST/SGOT) 64 U/L (15-37) Alanine Aminotransferase (ALT/SGPT) 64 U/L (16-63) Alkaline Phosphatase 60 U/L (46-116) Total Protein 6.5 g/dL (6.4-8.2) Albumin 2.9 g/dL (3.4-5.0) Albumin/Globulin Ratio 0.8 (1.0-1.7) Medications Active Scripts Medications Dose Route/Sig Max Daily Dose Days Date Category Dose Instructions Hydrocodone-Apap 5-325 (Hydrocodone Bit/Acetaminophen) 1 Tab Tablet 1 Tab PO PRN Q6HRS PRN 08/29/20 Reported Ms Contin (Morphine Sulfate) 15 Mg Tablet.er 15 Mg PO Q12HR 08/29/20 Reported Alprazolam 0.25 Mg Tablet 0.25 Mg PO PRN Q6HRS PRN 08/29/20 Reported Meloxicam 15 Mg Tablet 1 Tab PO DAILY 30 08/29/20 Reported Lyrica (Pregabalin) 300 Mg Capsule 1 Cap PO BID 08/29/20 Reported Aspirin 81 Mg Tab.chew 81 Mg PO DAILY 08/29/20 Reported [Vancomycin Hcl] 125 MG/2.5 ML Solution 125 Mg PO [id number] 08/12/16 Rx 125mg po qid x 3 weeks then 125mg po tid x 1 week then 125mg po bid x 4 weeks Centrum Silver Tablet (Multivits-Min/Fa/Lycopene/Lut) 1 Each Tablet 1 Each PO DAILY 08/10/16 Reported Protonix (Pantoprazole Sodium) 40 Mg Tablet.dr 1 Tab PO DAILY 08/10/16 Reported Crestor (Rosuvastatin Calcium) 40 Mg Tablet 40 Mg PO DAILY 02/03/14 Reported Impression . 1. Acute respiratory failure secondary to acute toxic encephalopathy-- resolved now on room air 2. Acute toxic encephalopathy, related to narcotic/ benzo overdose. 3. History of lymphoma, details unknown. Apparently had been on immune suppression treatment. 4. Leukocytosis--resolved 5. Abnormal CT chest with bibasilar atelectasis. 6. Acute kidney injury. 7. Increased troponin level. 8. Moderate protein-calorie malnutrition. Plan . PT. now extubated 08/30/20 Now on room air, supplemental oxygen if needed Continue Rocephin for full course Avoid sedative medications PT/OT DVT/GI PPX D/W MALOU QUIROS MD Aug 31, 2020 11:09
[2020-08-31] MEDS ORDERED: ACETAMINOPHEN 325 MG TABLET. PO PRN (11:15)
[2020-08-31] MEDS ORDERED: BENZOCAINE/MENTHOL LOZENGE. PO PRN (11:15)
--- NOTE | 2020-08-31 12:14 | PDOC ---
PROGRESS NOTES Date of Service: DATE: 08/31/20 TIME: 12:13 Chief Complaint Chief Complaint Acute hypoxic and hypercapnic respiratory failure - opioid overdose with concomitant benzodiazepine dosing during a panic attack, recent Left knee TOtal Acute encephalopathy - not improving enought on 08/31 for DC History of lymphoma - has been in remission since 2016 Leukocytosis - possibly reactive vs infectious, empiric antibiotics initiated, COVID neg Acute kidney injury - y vasomotor nephropathy Increased troponin level demand ischemia, better Moderate protein-calorie malnutrition - will start early nutrition Osteoarthritis - s/p left TKA on 08/20/2020, was discharged 08/22/2020. Transaminitis - possibly shock liver vs COVID 19, will f/u results. Thrombocytopenia - Unclear etiology, will monitor recent left knee total, PT and OT History of Present Illness History of Present Illness Out of ICU 23 hours, still very weak and confused, not continent, PT and OT, per their eval, he is not safe to DC home, baseline is high, try tomorrow ith home health extubated this AM cont current PT and OT to floor, may be able to DC in AM Vitals Vitals Vital Signs Date Time Temp Pulse Resp B/P (MAP) Pulse Ox O2 Delivery O2 Flow Rate FiO2 08/31/20 11:00 98.1 86 20 109/71 (84) 95 Room Air 2.0 98.1 Physical Exam General: Other (Intubated, sedated) Lungs: Clear Abdomen: Normal bowel sounds, Soft, No tenderness, No hepatosplenomegaly, No masses Extremities: No clubbing, No cyanosis, No edema, Normal pulses, Other (Left knee with compressive dressing in place) Skin: No rashes, No breakdown, No significant lesion Labs LABS Laboratory Tests Test 08/31/20 07:08 White Blood Count 10.0 x10^3/uL (4.0-11.0) Red Blood Count 3.35 x10^6/uL (4.30-5.70) Hemoglobin 10.4 g/dL (13.0-17.5) Hematocrit 31.4 % (39.0-53.0) Mean Corpuscular Volume 94 fL (79-100) Mean Corpuscular Hemoglobin 31 pg (25-35) Mean Corpuscular Hemoglobin Concent 33 g/dL (31-37) Red Cell Distribution Width 13.8 % (11.5-14.5) Platelet Count 215 x10^3/uL (140-400) Neutrophils (%) (Auto) 83 % (31-73) Lymphocytes (%) (Auto) 8 % (24-48) Monocytes (%) (Auto) 8 % (0-9) Eosinophils (%) (Auto) 1 % (0-3) Basophils (%) (Auto) 0 % (0-3) Neutrophils # (Auto) 8.3 x10^3/uL (1.8-7.7) Lymphocytes # (Auto) 0.7 x10^3/uL (1.0-4.8) Monocytes # (Auto) 0.8 x10^3/uL (0.0-1.1) Eosinophils # (Auto) 0.1 x10^3/uL (0.0-0.7) Basophils # (Auto) 0.0 x10^3/uL (0.0-0.2) Sodium Level 143 mmol/L (136-145) Potassium Level 4.3 mmol/L (3.5-5.1) Chloride Level 105 mmol/L (98-107) Carbon Dioxide Level 29 mmol/L (21-32) Anion Gap 9 (6-14) Blood Urea Nitrogen 22 mg/dL (8-26) Creatinine 1.4 mg/dL (0.7-1.3) Estimated GFR (Cockcroft-Gault) 50.7 BUN/Creatinine Ratio 16 (6-20) Glucose Level 108 mg/dL (70-99) Calcium Level 8.7 mg/dL (8.5-10.1) Total Bilirubin 0.7 mg/dL (0.2-1.0) Aspartate Amino Transf (AST/SGOT) 64 U/L (15-37) Alanine Aminotransferase (ALT/SGPT) 64 U/L (16-63) Alkaline Phosphatase 60 U/L (46-116) Total Protein 6.5 g/dL (6.4-8.2) Albumin 2.9 g/dL (3.4-5.0) Albumin/Globulin Ratio 0.8 (1.0-1.7) Assessment and Plan Assessmemt and Plan Problems Medical Problems: (1) Acute respiratory failure with hypoxia Status: Acute (2) Altered mental status Status: Acute Comment Review of Relevant I have reviewed the following items bethanie (where applicable) has been applied. Labs Laboratory Tests Test 08/29/20 17:48 08/30/20 02:15 08/30/20 07:55 08/30/20 08:00 Troponin I Quantitative 0.798 ng/mL (0.000-0.055) 0.586 ng/mL (0.000-0.055) 0.502 ng/mL (0.000-0.055) O2 Saturation 96 % (92-99) Arterial Blood pH 7.51 (7.35-7.45) Arterial Blood pCO2 at Patient Temp 32 mmHg (35-46) Arterial Blood pO2 at Patient Temp 79 mmHg (65-108) Arterial Blood HCO3 25 mmol/L (21-28) Arterial Blood Base Excess 2 mmol/L (-3-3) FiO2 60% White Blood Count 11.7 x10^3/uL (4.0-11.0) Red Blood Count 3.40 x10^6/uL (4.30-5.70) Hemoglobin 10.4 g/dL (13.0-17.5) Hematocrit 31.0 % (39.0-53.0) Mean Corpuscular Volume 91 fL (79-100) Mean Corpuscular Hemoglobin 31 pg (25-35) Mean Corpuscular Hemoglobin Concent 33 g/dL (31-37) Red Cell Distribution Width 13.3 % (11.5-14.5) Platelet Count 231 x10^3/uL (140-400) Neutrophils (%) (Auto) 88 % (31-73) Lymphocytes (%) (Auto) 4 % (24-48) Monocytes (%) (Auto) 8 % (0-9) Eosinophils (%) (Auto) 0 % (0-3) Basophils (%) (Auto) 0 % (0-3) Neutrophils # (Auto) 10.3 x10^3/uL (1.8-7.7) Lymphocytes # (Auto) 0.5 x10^3/uL (1.0-4.8) Monocytes # (Auto) 0.9 x10^3/uL (0.0-1.1) Eosinophils # (Auto) 0.0 x10^3/uL (0.0-0.7) Basophils # (Auto) 0.0 x10^3/uL (0.0-0.2) Sodium Level 141 mmol/L (136-145) Potassium Level 4.4 mmol/L (3.5-5.1) Chloride Level 104 mmol/L (98-107) Carbon Dioxide Level 26 mmol/L (21-32) Anion Gap 11 (6-14) Blood Urea Nitrogen 21 mg/dL (8-26) Creatinine 1.2 mg/dL (0.7-1.3) Estimated GFR (Cockcroft-Gault) 60.6 BUN/Creatinine Ratio 18 (6-20) Glucose Level 122 mg/dL (70-99) Calcium Level 8.5 mg/dL (8.5-10.1) Total Bilirubin 0.6 mg/dL (0.2-1.0) Aspartate Amino Transf (AST/SGOT) 49 U/L (15-37) Alanine Aminotransferase (ALT/SGPT) 65 U/L (16-63) Alkaline Phosphatase 58 U/L (46-116) Total Protein 5.6 g/dL (6.4-8.2) Albumin 2.6 g/dL (3.4-5.0) Albumin/Globulin Ratio 0.9 (1.0-1.7) Test 08/30/20 11:27 08/31/20 07:08 O2 Saturation 95 % (92-99) Arterial Blood pH 7.50 (7.35-7.45) Arterial Blood pCO2 at Patient Temp 36 mmHg (35-46) Arterial Blood pO2 at Patient Temp 72 mmHg (65-108) Arterial Blood HCO3 27 mmol/L (21-28) Arterial Blood Base Excess 4 mmol/L (-3-3) FiO2 60 White Blood Count 10.0 x10^3/uL (4.0-11.0) Red Blood Count 3.35 x10^6/uL (4.30-5.70) Hemoglobin 10.4 g/dL (13.0-17.5) Hematocrit 31.4 % (39.0-53.0) Mean Corpuscular Volume 94 fL (79-100) Mean Corpuscular Hemoglobin 31 pg (25-35) Mean Corpuscular Hemoglobin Concent 33 g/dL (31-37) Red Cell Distribution Width 13.8 % (11.5-14.5) Platelet Count 215 x10^3/uL (140-400) Neutrophils (%) (Auto) 83 % (31-73) Lymphocytes (%) (Auto) 8 % (24-48) Monocytes (%) (Auto) 8 % (0-9) Eosinophils (%) (Auto) 1 % (0-3) Basophils (%) (Auto) 0 % (0-3) Neutrophils # (Auto) 8.3 x10^3/uL (1.8-7.7) Lymphocytes # (Auto) 0.7 x10^3/uL (1.0-4.8) Monocytes # (Auto) 0.8 x10^3/uL (0.0-1.1) Eosinophils # (Auto) 0.1 x10^3/uL (0.0-0.7) Basophils # (Auto) 0.0 x10^3/uL (0.0-0.2) Sodium Level 143 mmol/L (136-145) Potassium Level 4.3 mmol/L (3.5-5.1) Chloride Level 105 mmol/L (98-107) Carbon Dioxide Level 29 mmol/L (21-32) Anion Gap 9 (6-14) Blood Urea Nitrogen 22 mg/dL (8-26) Creatinine 1.4 mg/dL (0.7-1.3) Estimated GFR (Cockcroft-Gault) 50.7 BUN/Creatinine Ratio 16 (6-20) Glucose Level 108 mg/dL (70-99) Calcium Level 8.7 mg/dL (8.5-10.1) Total Bilirubin 0.7 mg/dL (0.2-1.0) Aspartate Amino Transf (AST/SGOT) 64 U/L (15-37) Alanine Aminotransferase (ALT/SGPT) 64 U/L (16-63) Alkaline Phosphatase 60 U/L (46-116) Total Protein 6.5 g/dL (6.4-8.2) Albumin 2.9 g/dL (3.4-5.0) Albumin/Globulin Ratio 0.8 (1.0-1.7) Laboratory Tests Test 08/31/20 07:08 White Blood Count 10.0 x10^3/uL (4.0-11.0) Red Blood Count 3.35 x10^6/uL (4.30-5.70) Hemoglobin 10.4 g/dL (13.0-17.5) Hematocrit 31.4 % (39.0-53.0) Mean Corpuscular Volume 94 fL (79-100) Mean Corpuscular Hemoglobin 31 pg (25-35) Mean Corpuscular Hemoglobin Concent 33 g/dL (31-37) Red Cell Distribution Width 13.8 % (11.5-14.5) Platelet Count 215 x10^3/uL (140-400) Neutrophils (%) (Auto) 83 % (31-73) Lymphocytes (%) (Auto) 8 % (24-48) Monocytes (%) (Auto) 8 % (0-9) Eosinophils (%) (Auto) 1 % (0-3) Basophils (%) (Auto) 0 % (0-3) Neutrophils # (Auto) 8.3 x10^3/uL (1.8-7.7) Lymphocytes # (Auto) 0.7 x10^3/uL (1.0-4.8) Monocytes # (Auto) 0.8 x10^3/uL (0.0-1.1) Eosinophils # (Auto) 0.1 x10^3/uL (0.0-0.7) Basophils # (Auto) 0.0 x10^3/uL (0.0-0.2) Sodium Level 143 mmol/L (136-145) Potassium Level 4.3 mmol/L (3.5-5.1) Chloride Level 105 mmol/L (98-107) Carbon Dioxide Level 29 mmol/L (21-32) Anion Gap 9 (6-14) Blood Urea Nitrogen 22 mg/dL (8-26) Creatinine 1.4 mg/dL (0.7-1.3) Estimated GFR (Cockcroft-Gault) 50.7 BUN/Creatinine Ratio 16 (6-20) Glucose Level 108 mg/dL (70-99) Calcium Level 8.7 mg/dL (8.5-10.1) Total Bilirubin 0.7 mg/dL (0.2-1.0) Aspartate Amino Transf (AST/SGOT) 64 U/L (15-37) Alanine Aminotransferase (ALT/SGPT) 64 U/L (16-63) Alkaline Phosphatase 60 U/L (46-116) Total Protein 6.5 g/dL (6.4-8.2) Albumin 2.9 g/dL (3.4-5.0) Albumin/Globulin Ratio 0.8 (1.0-1.7) Microbiology 08/29/20 Blood Culture - Preliminary, Resulted NO GROWTH AFTER 2 DAYS Medications Current Medications Ceftriaxone Sodium (Rocephin) 1 gm 1X ONCE IVP Last administered on 08/29/20at 08:36; Start 08/29/20 at 08:15; Stop 08/29/20 at 08:16; Status DC Dexamethasone Sodium Phosphate (Decadron) 10 mg 1X ONCE IVP Last administered on 08/29/20at 08:36; Start 08/29/20 at 08:15; Stop 08/29/20 at 08:16; Status DC Propofol 100 ml @ 0 mls/hr CONT PRN IV PER PROTOCOL; Start 08/29/20 at 07:45; Stop 08/29/20 at 07:56; Status DC Chlorhexidine Gluconate (Peridex) 15 ml BID MM ; Start 08/29/20 at 09:00; Stop 08/29/20 at 19:21; Status DC Midazolam HCl 100 ml @ 0 mls/hr 1X ONCE IV Last administered on 08/29/20at 09:08; Start 08/29/20 at 08:00; Stop 08/29/20 at 08:01; Status DC Midazolam HCl (Versed) 5 mg 1X ONCE NS Last administered on 08/29/20at 08:32; Start 08/29/20 at 08:00; Stop 08/29/20 at 08:01; Status DC Norepinephrine Bitartrate 8 mg/ Dextrose 258 ml @ 21.092 mls/ hr 1X ONCE IV Last administered on 08/29/20at 08:37; Start 08/29/20 at 08:30; Stop 08/29/20 at 17:41; Status DC Sodium Chloride 1,000 ml @ 1,000 mls/hr 1X ONCE IV Last administered on 08/11 at 07:50; Start 08/29/20 at 08:30; Stop 08/29/20 at 09:29; Status DC Sodium Chloride 1,000 ml @ 1,000 mls/hr 1X ONCE IV Last administered on 08/29/20at 08:15; Start 08/29/20 at 08:30; Stop 08/29/20 at 09:29; Status DC Naloxone HCl (NARCAN 2mg SYRINGE) 4 mg 1X ONCE IV Last administered on 08/29/20at 08:53; Start 08/29/20 at 09:00; Stop 08/29/20 at 09:01; Status DC Etomidate (Amidate) 30 mg 1X ONCE IV Last administered on 08/29/20at 08:55; Start 08/29/20 at 09:00; Stop 08/29/20 at 09:01; Status DC Succinylcholine Chloride (Anectine) 200 mg 1X ONCE IV Last administered on 08/29/20at 08:54; Start 08/29/20 at 09:00; Stop 08/29/20 at 09:01; Status DC Ceftriaxone Sodium (Rocephin) 1 gm Q24H IVP Last administered on 08/30/20at 13:22; Start 08/29/20 at 13:00 Heparin Sodium (Porcine) (Heparin Sodium) 5,000 unit Q8HRS SQ Last administered on 08/31/20at 06:18; Start 08/29/20 at 14:15 Ondansetron HCl (Zofran) 4 mg PRN Q4HRS PRN IV NAUSEA/VOMITING; Start 08/29/20 at 14:15 Acetaminophen (Tylenol) 650 mg PRN Q4HRS PRN GT TEMP OVER 100.4F OR MILD PAIN; Start 08/29/20 at 14:15 Docusate Sodium (Colace) 100 mg PRN BID PRN PO HARD STOOLS; Start 08/29/20 at 14:15 Propofol 100 ml @ 0 mls/hr CONT PRN IV PER PROTOCOL Last administered on 08/30/20at 08:06; Start 08/29/20 at 15:30; Stop 08/30/20 at 16:31; Status DC Propofol 100 ml @ 0 mls/hr CONT PRN IV PER PROTOCOL; Start 08/29/20 at 15:30; Status UNV Norepinephrine Bitartrate 8 mg/ Dextrose 258 ml @ 21.092 mls/ hr CONT PRN IV PER PROTOCOL Last administered on 08/29/20at 17:45; Start 08/29/20 at 17:30; Stop 08/30/20 at 16:31; Status DC Olanzapine (ZyPREXA ZYDIS) 5 mg PRN BID PRN PO ANXIETY / AGITATION Last administered on 08/31/20at 06:14; Start 08/31/20 at 06:15 Acetaminophen (Tylenol) 650 mg PRN Q6HRS PRN PO TEMP > 100.3'F Last administered on 08/31/20at 12:07; Start 08/31/20 at 11:15 Throat Lozenges (Cepacol Sore Throat Lozenge) 1 felisha PRN Q2HRS PRN PO SORE THROAT Last administered on 08/31/20at 12:07; Start 08/31/20 at 11:15 Active Scripts Active [Vancomycin Hcl] 125 MG/2.5 ML Solution 125 Mg PO [id number] Days 125mg po qid x 3 weeks then 125mg po tid x 1 week then 125mg po bid x 4 weeks Reported Hydrocodone-Apap 5-325 (Hydrocodone Bit/Acetaminophen) 1 Tab Tablet 1 Tab PO PRN Q6HRS PRN Ms Contin (Morphine Sulfate) 15 Mg Tablet.er 15 Mg PO Q12HR Alprazolam 0.25 Mg Tablet 0.25 Mg PO PRN Q6HRS PRN Meloxicam 15 Mg Tablet 1 Tab PO DAILY 30 Days Lyrica (Pregabalin) 300 Mg Capsule 1 Cap PO BID Aspirin 81 Mg Tab.chew 81 Mg PO DAILY Centrum Silver Tablet (Multivits-Min/Fa/Lycopene/Lut) 1 Each Tablet 1 Each PO DAILY Protonix (Pantoprazole Sodium) 40 Mg Tablet. 1 Tab PO DAILY Crestor (Rosuvastatin Calcium) 40 Mg Tablet 40 Mg PO DAILY Vitals/I & O Vital Sign - Last 24 Hours 08/30/20 08/30/20 08/30/20 08/30/20 13:00 14:00 15:00 16:00 Temp 98.9 98.9 Pulse 76 82 82 82 Resp 18 18 16 18 B/P (MAP) 118/59 (78) 127/67 (87) 125/69 (87) 124/76 (92) Pulse Ox 93 92 93 94 O2 Delivery Nasal Cannula Nasal Cannula Nasal Cannula Nasal Cannula O2 Flow Rate 3.0 3.0 3.0 3.0 08/30/20 08/30/20 08/30/20 08/31/20 18:26 19:41 21:00 00:23 Temp 97.5 98.6 97.5 98.6 Pulse 80 88 Resp 18 24 B/P (MAP) 113/68 (83) 125/72 (89) Pulse Ox 94 93 93 O2 Delivery Room Air Room Air Room Air Room Air 08/31/20 08/31/20 08/31/20 08/31/20 03:37 05:30 07:00 11:00 Temp 98.7 99.0 98.1 98.7 99.0 98.1 Pulse 80 74 86 Resp 19 18 20 B/P (MAP) 125/59 (81) 122/60 (80) 109/71 (84) Pulse Ox 97 94 95 O2 Delivery Room Air Nasal Cannula Room Air Room Air O2 Flow Rate 2.0 2.0 2.0 2.0 Intake and Output 08/30/20 08/30/20 08/31/20 15:00 23:00 07:00 Intake Total 130 ml 170 ml Output Total 300 ml 1200 ml Balance -300 ml -1070 ml 170 ml Justicifation of Admission Dx: Justifications for Admission: Justification of Admission Dx: Yes (resp failure, intubated) ANABEL SMITH MD Aug 31, 2020 12:14
[2020-08-31] MEDS: cefTRIAXone IV Push 1 GM VIAL. IVP SCH (13:00)
--- NOTE | 2020-08-31 14:33 | NUR ---
SS following up with discharge planning. SS received notification from pt's spouse that she wants [facility], ; fax [phone], for home healthcare and if they cannot accept she wants [facility], ; fax [phone]. SS phoned and faxed referral to [facility]. SS will continue to follow for discharge planning.
[2020-09-01 02:50] VITALS: BP 114/72
--- NOTE | 2020-09-01 04:46 | PDOC ---
PULMONARY PROGRESS NOTES DATE: 09/01/20 TIME: 04:41 Subjective extubated on 08/30/20 on room air sob better has cough not much sputum uses a walker Vitals Vital Signs Date Time Temp Pulse Resp B/P (MAP) Pulse Ox O2 Delivery O2 Flow Rate FiO2 09/01/20 02:50 99.1 75 18 114/72 (86) 93 Room Air 2.0 99.1 ROS: No Nausea, No Chest Pain, No Abdominal Pain, No Increase Cough General: Alert, Oriented X4 Lungs: Clear Cardiovascular: S1, S2 Abdomen: Soft, Non-tender Neuro Exam: Alert, Oriented Skin: Warm, Dry Labs Laboratory Tests Test 08/30/20 07:55 08/30/20 08:00 08/30/20 11:27 08/31/20 07:08 O2 Saturation 96 % (92-99) 95 % (92-99) Arterial Blood pH 7.51 (7.35-7.45) 7.50 (7.35-7.45) Arterial Blood pCO2 at Patient Temp 32 mmHg (35-46) 36 mmHg (35-46) Arterial Blood pO2 at Patient Temp 79 mmHg (65-108) 72 mmHg (65-108) Arterial Blood HCO3 25 mmol/L (21-28) 27 mmol/L (21-28) Arterial Blood Base Excess 2 mmol/L (-3-3) 4 mmol/L (-3-3) FiO2 60% 60 White Blood Count 11.7 x10^3/uL (4.0-11.0) 10.0 x10^3/uL (4.0-11.0) Red Blood Count 3.40 x10^6/uL (4.30-5.70) 3.35 x10^6/uL (4.30-5.70) Hemoglobin 10.4 g/dL (13.0-17.5) 10.4 g/dL (13.0-17.5) Hematocrit 31.0 % (39.0-53.0) 31.4 % (39.0-53.0) Mean Corpuscular Volume 91 fL (79-100) 94 fL (79-100) Mean Corpuscular Hemoglobin 31 pg (25-35) 31 pg (25-35) Mean Corpuscular Hemoglobin Concent 33 g/dL (31-37) 33 g/dL (31-37) Red Cell Distribution Width 13.3 % (11.5-14.5) 13.8 % (11.5-14.5) Platelet Count 231 x10^3/uL (140-400) 215 x10^3/uL (140-400) Neutrophils (%) (Auto) 88 % (31-73) 83 % (31-73) Lymphocytes (%) (Auto) 4 % (24-48) 8 % (24-48) Monocytes (%) (Auto) 8 % (0-9) 8 % (0-9) Eosinophils (%) (Auto) 0 % (0-3) 1 % (0-3) Basophils (%) (Auto) 0 % (0-3) 0 % (0-3) Neutrophils # (Auto) 10.3 x10^3/uL (1.8-7.7) 8.3 x10^3/uL (1.8-7.7) Lymphocytes # (Auto) 0.5 x10^3/uL (1.0-4.8) 0.7 x10^3/uL (1.0-4.8) Monocytes # (Auto) 0.9 x10^3/uL (0.0-1.1) 0.8 x10^3/uL (0.0-1.1) Eosinophils # (Auto) 0.0 x10^3/uL (0.0-0.7) 0.1 x10^3/uL (0.0-0.7) Basophils # (Auto) 0.0 x10^3/uL (0.0-0.2) 0.0 x10^3/uL (0.0-0.2) Sodium Level 141 mmol/L (136-145) 143 mmol/L (136-145) Potassium Level 4.4 mmol/L (3.5-5.1) 4.3 mmol/L (3.5-5.1) Chloride Level 104 mmol/L (98-107) 105 mmol/L (98-107) Carbon Dioxide Level 26 mmol/L (21-32) 29 mmol/L (21-32) Anion Gap 11 (6-14) 9 (6-14) Blood Urea Nitrogen 21 mg/dL (8-26) 22 mg/dL (8-26) Creatinine 1.2 mg/dL (0.7-1.3) 1.4 mg/dL (0.7-1.3) Estimated GFR (Cockcroft-Gault) 60.6 50.7 BUN/Creatinine Ratio 18 (6-20) 16 (6-20) Glucose Level 122 mg/dL (70-99) 108 mg/dL (70-99) Calcium Level 8.5 mg/dL (8.5-10.1) 8.7 mg/dL (8.5-10.1) Total Bilirubin 0.6 mg/dL (0.2-1.0) 0.7 mg/dL (0.2-1.0) Aspartate Amino Transf (AST/SGOT) 49 U/L (15-37) 64 U/L (15-37) Alanine Aminotransferase (ALT/SGPT) 65 U/L (16-63) 64 U/L (16-63) Alkaline Phosphatase 58 U/L (46-116) 60 U/L (46-116) Troponin I Quantitative 0.502 ng/mL (0.000-0.055) Total Protein 5.6 g/dL (6.4-8.2) 6.5 g/dL (6.4-8.2) Albumin 2.6 g/dL (3.4-5.0) 2.9 g/dL (3.4-5.0) Albumin/Globulin Ratio 0.9 (1.0-1.7) 0.8 (1.0-1.7) Laboratory Tests Test 08/31/20 07:08 White Blood Count 10.0 x10^3/uL (4.0-11.0) Red Blood Count 3.35 x10^6/uL (4.30-5.70) Hemoglobin 10.4 g/dL (13.0-17.5) Hematocrit 31.4 % (39.0-53.0) Mean Corpuscular Volume 94 fL (79-100) Mean Corpuscular Hemoglobin 31 pg (25-35) Mean Corpuscular Hemoglobin Concent 33 g/dL (31-37) Red Cell Distribution Width 13.8 % (11.5-14.5) Platelet Count 215 x10^3/uL (140-400) Neutrophils (%) (Auto) 83 % (31-73) Lymphocytes (%) (Auto) 8 % (24-48) Monocytes (%) (Auto) 8 % (0-9) Eosinophils (%) (Auto) 1 % (0-3) Basophils (%) (Auto) 0 % (0-3) Neutrophils # (Auto) 8.3 x10^3/uL (1.8-7.7) Lymphocytes # (Auto) 0.7 x10^3/uL (1.0-4.8) Monocytes # (Auto) 0.8 x10^3/uL (0.0-1.1) Eosinophils # (Auto) 0.1 x10^3/uL (0.0-0.7) Basophils # (Auto) 0.0 x10^3/uL (0.0-0.2) Sodium Level 143 mmol/L (136-145) Potassium Level 4.3 mmol/L (3.5-5.1) Chloride Level 105 mmol/L (98-107) Carbon Dioxide Level 29 mmol/L (21-32) Anion Gap 9 (6-14) Blood Urea Nitrogen 22 mg/dL (8-26) Creatinine 1.4 mg/dL (0.7-1.3) Estimated GFR (Cockcroft-Gault) 50.7 BUN/Creatinine Ratio 16 (6-20) Glucose Level 108 mg/dL (70-99) Calcium Level 8.7 mg/dL (8.5-10.1) Total Bilirubin 0.7 mg/dL (0.2-1.0) Aspartate Amino Transf (AST/SGOT) 64 U/L (15-37) Alanine Aminotransferase (ALT/SGPT) 64 U/L (16-63) Alkaline Phosphatase 60 U/L (46-116) Total Protein 6.5 g/dL (6.4-8.2) Albumin 2.9 g/dL (3.4-5.0) Albumin/Globulin Ratio 0.8 (1.0-1.7) Medications Active Scripts Medications Dose Route/Sig Max Daily Dose Days Date Category Dose Instructions Hydrocodone-Apap 5-325 (Hydrocodone Bit/Acetaminophen) 1 Tab Tablet 1 Tab PO PRN Q6HRS PRN 08/29/20 Reported Ms Contin (Morphine Sulfate) 15 Mg Tablet.er 15 Mg PO Q12HR 08/29/20 Reported Alprazolam 0.25 Mg Tablet 0.25 Mg PO PRN Q6HRS PRN 08/29/20 Reported Meloxicam 15 Mg Tablet 1 Tab PO DAILY 30 08/29/20 Reported Lyrica (Pregabalin) 300 Mg Capsule 1 Cap PO BID 08/29/20 Reported Aspirin 81 Mg Tab.chew 81 Mg PO DAILY 08/29/20 Reported [Vancomycin Hcl] 125 MG/2.5 ML Solution 125 Mg PO [id number] 08/12/16 Rx 125mg po qid x 3 weeks then 125mg po tid x 1 week then 125mg po bid x 4 weeks Centrum Silver Tablet (Multivits-Min/Fa/Lycopene/Lut) 1 Each Tablet 1 Each PO DAILY 08/10/16 Reported Protonix (Pantoprazole Sodium) 40 Mg Tablet.dr 1 Tab PO DAILY 08/10/16 Reported Crestor (Rosuvastatin Calcium) 40 Mg Tablet 40 Mg PO DAILY 02/03/14 Reported Impression . 1. Acute respiratory failure secondary to acute toxic encephalopathy-- resolved now on room air 2. Acute toxic encephalopathy, related to narcotic/ benzo overdose. 3. History of lymphoma, details unknown. Apparently had been on immune suppression treatment. 4. Leukocytosis--resolved 5. Abnormal CT chest with bibasilar atelectasis. 6. Acute kidney injury. 7. Increased troponin level. 8. Moderate protein-calorie malnutrition. Plan . PT. now extubated 08/30/20 Now on room air, supplemental oxygen if needed IS Continue Rocephin for full course Avoid sedative medications PT/OT DVT/GI PPX D/W DAYDAY FLOWERS MD Sep 01, 2020 04:46
[2020-09-01 05:19] LABS: BASO % 0 % (0-3); EOS # 0.1 x10^3/uL (0.0-0.7); EOS % 2 % (0-3); HEMATOCRIT 31.3 % (39.0-53.0); HEMOGLOBIN 10.4 g/dL (13.0-17.5); LYMPH # 0.7 x10^3/uL (1.0-4.8); LYMPH % 8 % (24-48); MEAN CORPUSCULAR HEMOGLOBIN 31 pg (25-35); MEAN CORPUSCULAR HGB CONC 33 g/dL (31-37); MEAN CORPUSCULAR VOLUME 92 fL (79-100); MONO # 0.7 x10^3/uL (0.0-1.1); MONO % 8 % (0-9); NEUT # 7.2 x10^3/uL (1.8-7.7); NEUT % 82 % (31-73); PLATELET COUNT 233 x10^3/uL (140-400); RED CELL DISTRIBUTION WIDTH 13.8 % (11.5-14.5); WHITE BLOOD COUNT 8.8 x10^3/uL (4.0-11.0)
[2020-09-01 05:39] LABS: ALBUMIN 2.7 g/dL (3.4-5.0); ALBUMIN/GLOBULIN RATIO 0.8 (1.0-1.7); CALCIUM 8.8 mg/dL (8.5-10.1); CREATININE 1.2 mg/dL (0.7-1.3); GFR 60.6; POTASSIUM 3.7 mmol/L (3.5-5.1); TOTAL BILIRUBIN 0.6 mg/dL (0.2-1.0); TOTAL PROTEIN 6.2 g/dL (6.4-8.2)
[2020-09-01] MEDS: HEPARIN for SUB-Q USE 5,000 UNIT/ML VIAL. SQ SCH (05:49)
[2020-09-01 07:00] VITALS: BP 123/73
[2020-09-01 11:00] VITALS: BP 137/64
--- NOTE | 2020-09-01 11:12 | PDOC3 ---
Discharge Summary Visit Information Date of Admission: Aug 29, 2020 Date of Discharge: Sep 01, 2020 Final Diagnosis Acute hypoxic and hypercapnic respiratory failure - opioid overdose with concomitant benzodiazepine dosing during a panic attack, recent Left knee TOtal Acute encephalopathy - benzos and opiates and hypoxia History of lymphoma - has been in remission since 2016 Leukocytosis - possibly reactive vs infectious, empiric antibiotics initiated, COVID neg Acute kidney injury - y vasomotor nephropathy Increased troponin level demand ischemia, better Moderate protein-calorie malnutrition - will start early nutrition Osteoarthritis - s/p left TKA on 08/20/2020, was discharged 08/22/2020. Transaminitis - possibly shock liver vs COVID 19, will f/u results. Thrombocytopenia - Unclear etiology, will monitor recent left knee total, PT and OT Problems Medical Problems: (1) Acute respiratory failure with hypoxia Status: Acute (2) Altered mental status Status: Acute Brief Hospital Course Allergies Allergies Coded Allergies Type Severity Reaction Last Updated Verified No Known Drug Allergies 04/28/16 No Vital Signs Vital Signs Date Time Temp Pulse Resp B/P (MAP) Pulse Ox O2 Delivery O2 Flow Rate FiO2 09/01/20 08:00 Room Air 09/01/20 07:00 98.8 67 18 123/73 (90) 94 2.0 98.8 Lab Results Laboratory Tests Test 08/30/20 11:27 08/31/20 07:08 09/01/20 04:00 O2 Saturation 95 % (92-99) Arterial Blood pH 7.50 (7.35-7.45) Arterial Blood pCO2 at Patient Temp 36 mmHg (35-46) Arterial Blood pO2 at Patient Temp 72 mmHg (65-108) Arterial Blood HCO3 27 mmol/L (21-28) Arterial Blood Base Excess 4 mmol/L (-3-3) FiO2 60 White Blood Count 10.0 x10^3/uL (4.0-11.0) 8.8 x10^3/uL (4.0-11.0) Red Blood Count 3.35 x10^6/uL (4.30-5.70) 3.40 x10^6/uL (4.30-5.70) Hemoglobin 10.4 g/dL (13.0-17.5) 10.4 g/dL (13.0-17.5) Hematocrit 31.4 % (39.0-53.0) 31.3 % (39.0-53.0) Mean Corpuscular Volume 94 fL (79-100) 92 fL (79-100) Mean Corpuscular Hemoglobin 31 pg (25-35) 31 pg (25-35) Mean Corpuscular Hemoglobin Concent 33 g/dL (31-37) 33 g/dL (31-37) Red Cell Distribution Width 13.8 % (11.5-14.5) 13.8 % (11.5-14.5) Platelet Count 215 x10^3/uL (140-400) 233 x10^3/uL (140-400) Neutrophils (%) (Auto) 83 % (31-73) 82 % (31-73) Lymphocytes (%) (Auto) 8 % (24-48) 8 % (24-48) Monocytes (%) (Auto) 8 % (0-9) 8 % (0-9) Eosinophils (%) (Auto) 1 % (0-3) 2 % (0-3) Basophils (%) (Auto) 0 % (0-3) 0 % (0-3) Neutrophils # (Auto) 8.3 x10^3/uL (1.8-7.7) 7.2 x10^3/uL (1.8-7.7) Lymphocytes # (Auto) 0.7 x10^3/uL (1.0-4.8) 0.7 x10^3/uL (1.0-4.8) Monocytes # (Auto) 0.8 x10^3/uL (0.0-1.1) 0.7 x10^3/uL (0.0-1.1) Eosinophils # (Auto) 0.1 x10^3/uL (0.0-0.7) 0.1 x10^3/uL (0.0-0.7) Basophils # (Auto) 0.0 x10^3/uL (0.0-0.2) 0.0 x10^3/uL (0.0-0.2) Sodium Level 143 mmol/L (136-145) 144 mmol/L (136-145) Potassium Level 4.3 mmol/L (3.5-5.1) 3.7 mmol/L (3.5-5.1) Chloride Level 105 mmol/L (98-107) 107 mmol/L (98-107) Carbon Dioxide Level 29 mmol/L (21-32) 26 mmol/L (21-32) Anion Gap 9 (6-14) 11 (6-14) Blood Urea Nitrogen 22 mg/dL (8-26) 18 mg/dL (8-26) Creatinine 1.4 mg/dL (0.7-1.3) 1.2 mg/dL (0.7-1.3) Estimated GFR (Cockcroft-Gault) 50.7 60.6 BUN/Creatinine Ratio 16 (6-20) 15 (6-20) Glucose Level 108 mg/dL (70-99) 106 mg/dL (70-99) Calcium Level 8.7 mg/dL (8.5-10.1) 8.8 mg/dL (8.5-10.1) Total Bilirubin 0.7 mg/dL (0.2-1.0) 0.6 mg/dL (0.2-1.0) Aspartate Amino Transf (AST/SGOT) 64 U/L (15-37) 41 U/L (15-37) Alanine Aminotransferase (ALT/SGPT) 64 U/L (16-63) 61 U/L (16-63) Alkaline Phosphatase 60 U/L (46-116) 59 U/L (46-116) Total Protein 6.5 g/dL (6.4-8.2) 6.2 g/dL (6.4-8.2) Albumin 2.9 g/dL (3.4-5.0) 2.7 g/dL (3.4-5.0) Albumin/Globulin Ratio 0.8 (1.0-1.7) 0.8 (1.0-1.7) Laboratory Tests Test 09/01/20 04:00 White Blood Count 8.8 x10^3/uL (4.0-11.0) Red Blood Count 3.40 x10^6/uL (4.30-5.70) Hemoglobin 10.4 g/dL (13.0-17.5) Hematocrit 31.3 % (39.0-53.0) Mean Corpuscular Volume 92 fL (79-100) Mean Corpuscular Hemoglobin 31 pg (25-35) Mean Corpuscular Hemoglobin Concent 33 g/dL (31-37) Red Cell Distribution Width 13.8 % (11.5-14.5) Platelet Count 233 x10^3/uL (140-400) Neutrophils (%) (Auto) 82 % (31-73) Lymphocytes (%) (Auto) 8 % (24-48) Monocytes (%) (Auto) 8 % (0-9) Eosinophils (%) (Auto) 2 % (0-3) Basophils (%) (Auto) 0 % (0-3) Neutrophils # (Auto) 7.2 x10^3/uL (1.8-7.7) Lymphocytes # (Auto) 0.7 x10^3/uL (1.0-4.8) Monocytes # (Auto) 0.7 x10^3/uL (0.0-1.1) Eosinophils # (Auto) 0.1 x10^3/uL (0.0-0.7) Basophils # (Auto) 0.0 x10^3/uL (0.0-0.2) Sodium Level 144 mmol/L (136-145) Potassium Level 3.7 mmol/L (3.5-5.1) Chloride Level 107 mmol/L (98-107) Carbon Dioxide Level 26 mmol/L (21-32) Anion Gap 11 (6-14) Blood Urea Nitrogen 18 mg/dL (8-26) Creatinine 1.2 mg/dL (0.7-1.3) Estimated GFR (Cockcroft-Gault) 60.6 BUN/Creatinine Ratio 15 (6-20) Glucose Level 106 mg/dL (70-99) Calcium Level 8.8 mg/dL (8.5-10.1) Total Bilirubin 0.6 mg/dL (0.2-1.0) Aspartate Amino Transf (AST/SGOT) 41 U/L (15-37) Alanine Aminotransferase (ALT/SGPT) 61 U/L (16-63) Alkaline Phosphatase 59 U/L (46-116) Total Protein 6.2 g/dL (6.4-8.2) Albumin 2.7 g/dL (3.4-5.0) Albumin/Globulin Ratio 0.8 (1.0-1.7) Brief Hospital Course Mr. Perales is a 64 old male, takes xanax PRN at baseline, had left total knee replacement and got a script for percocet. his had been managing meds, but one night, his pain was worse, and his anxiety was worse and he took both meds when she was sleeping and he was confused. probably took at least a couple of each, admit for resp failure, intuabted for a day, then weak and confused. will hold xanax for now, will lock up all meds and dispense PRN so that pain meds will stay as directed, and he will f./u with his primary care next week. Discharge Information Condition at Discharge: Improved Follow Up: Weeks Disposition/Orders: D/C to Home Scheduled Aspirin (Aspirin) 81 Mg Tab.chew, 81 MG PO DAILY for blood thinner, (Reported) Entered as Reported by: KIRA ABBASI on 08/29/201827 Last Action: New Order on 08/29/201827 by KIRA ABBASI Meloxicam (Meloxicam) 15 Mg Tablet, 1 TAB PO DAILY for 1 for 30 Days, #30 Ref 0 (Reported) Entered as Reported by: KIRA ABBASI on 08/29/201827 Last Action: New Order on 08/29/201827 by KIRA ABBASI Multivits-Min/Fa/Lycopene/Lut (Centrum Silver Tablet) 1 Each Tablet, 1 EACH PO DAILY, (Reported) Entered as Reported by: Cynthia Mendieta on 08/10/16 0113 Pantoprazole Sodium (Protonix ) 40 Mg Tablet.dr, 1 TAB PO DAILY, #30 Ref 5 (Reported) Entered as Reported by: Cynthia Mendieta on 08/10/16 0102 Pregabalin (Lyrica) 300 Mg Capsule, 1 CAP PO BID for 1, #60 Ref 2 (Reported) Entered as Reported by: KIRA ABBASI on 08/29/201827 Last Action: New Order on 08/29/201827 by KIRA ABBASI Rosuvastatin Calcium (Crestor) 40 Mg Tablet, 40 MG PO DAILY for FOR CHOLESTEROL, #30 Ref 0 (Reported) Entered as Reported by: TRACY LEE on 02/03/14 0709 Scheduled PRN Hydrocodone Bit/Acetaminophen (Hydrocodone-Apap 5-325 ) 1 Tab Tablet, 1 TAB PO PRN Q6HRS PRN for PAIN, Ref 0 (Reported) Entered as Reported by: KIRA ABBASI on 08/29/201827 Last Action: New Order on 08/29/201827 by KIRA ABBASI Discontinued Medications Alprazolam (Alprazolam) 0.25 Mg Tablet, 0.25 MG PO PRN Q6HRS PRN for ANXIETY / AGITATION, Ref 0 (Reported) Entered as Reported by: KIRA ABBASI on 08/29/201827 Last Action: New Order on 08/29/201827 by KIRA ABBASI Escitalopram Oxalate (Escitalopram Oxalate) 10 Mg Tablet, 1 TAB PO DAILY, #30 Ref 3 (Reported) Entered as Reported by: NKECHI FLOWERS on 05/09/1644 Last Action: Discontinued on 08/29/201827 by KIRA ABBASI Ezetimibe (Zetia) 10 Mg Tablet, 10 PO DAILY, #90 (Reported) Entered as Reported by: DULCE REINA on 05/08/16 1511 Last Action: Discontinued on 08/29/201827 by KIRA ABBASI Fluticasone Propionate (Flonase Allergy Relief) 9.9 Ml Anderson.susp, 2 SPRAYS NS PRN Q6HRS, (Reported) Entered as Reported by: Cynthia Mendieta on 08/10/16 0111 Last Action: Discontinued on 08/29/201827 by KIRA ABBASI Morphine Sulfate Er (Ms Contin) 15 Mg Tablet.er, 15 MG PO Q12HR for pain, (Reported) Entered as Reported by: KIRA ABBASI on 08/29/201827 Last Action: New Order on 08/29/201827 by KIRA ABBASI Ondansetron Hcl (Ondansetron Hcl) 8 Mg Tablet, 8 MG PO BID PRN for NAUSEA/VOMITING, (Reported) Entered as Reported by: NKECHI FLOWERS on 05/09/1644 Last Action: Discontinued on 08/29/201827 by KIRA ABBASI [Vancomycin Hcl] 125 MG/2.5 ML SOLUTION, 125 MG PO [id number] for 42 Days 125mg po qid x 3 weeks then 125mg po tid x 1 week then 125mg po bid x 4 weeks Prescribed by: EMPERATRIZ DE DIOS on 08/12/16 1610 Patient Instructions Patient Instructions resume outpatient PT for total knee Justicifation of Admission Dx: Justifications for Admission: Justification of Admission Dx: Yes (resp failure, intubated) ANABEL SMITH MD Sep 01, 2020 11:12
--- NOTE | 2020-09-01 11:34 | NUR ---
DISCHARGED PATIENT HOME. DISCHARGE INSTRUCTIONS GIVEN. PIV REMOVED. ESCORTED PATIENT PER WHEELCHAIR OFF UNIT INTO A PRIVATE VEHICLE.
== END 2020-09-01 11:37 | disposition home or self-care (01) | DRG 208 ==
LOC: ER 06:59 → 1 WEST ICU 11:25 → 2 NORTH 08-31 05:32
PROVIDERS: ADMIT Internal Medicine; ATTEND Internal Medicine
PROC: 5A1945Z Respiratory Ventilation, 24-96 Consecutive Hours (ICD-10-PCS; principal; 2020-08-29)
PROC: 0BH17EZ Insertion of Endotracheal Airway into Trachea, Via Natural or Artificial Opening (ICD-10-PCS; 2020-08-29)
DX: J96.01 Acute respiratory failure with hypoxia (principal); N17.0 Acute kidney failure with tubular necrosis; G92 Toxic encephalopathy; J18.9 Pneumonia, unspecified organism; K72.00 Acute and subacute hepatic failure without coma; E44.0 Moderate protein-calorie malnutrition; I24.8 Other forms of acute ischemic heart disease; J98.11 Atelectasis; T42.4X1A Poisoning by benzodiazepines, accidental (unintentional), initial encounter; J96.02 Acute respiratory failure with hypercapnia; D69.6 Thrombocytopenia, unspecified; E78.5 Hyperlipidemia, unspecified; F41.0 Panic disorder [episodic paroxysmal anxiety]; I10 Essential (primary) hypertension; I25.10 Atherosclerotic heart disease of native coronary artery without angina pectoris; J01.00 Acute maxillary sinusitis, unspecified; M19.90 Unspecified osteoarthritis, unspecified site; T40.2X1A Poisoning by other opioids, accidental (unintentional), initial encounter; T40.605A Adverse effect of unspecified narcotics, initial encounter; Z83.3 Family history of diabetes mellitus; Z85.72 Personal history of non-Hodgkin lymphomas; Z87.891 Personal history of nicotine dependence; Z95.5 Presence of coronary angioplasty implant and graft; Z96.652 Presence of left artificial knee joint; F41.9 Anxiety disorder, unspecified; K57.90 Diverticulosis of intestine, part unspecified, without perforation or abscess without bleeding; R74.01 Elevation of levels of liver transaminase levels; I25.2 Old myocardial infarction
CPT/HCPCS: 31500; 36415; 36600; 70450; 71045; 71250; 80053; 80307; 81001; 82805; 83605; 83615; 83880; 84484; 85007; 85025; 86140; 87040; 93970; 94002; 94003; 94660; 96361; 96365; 96375; J0330; J0696; J1100; J1644; J2250; J2310; J2704; J3490; J7030; J7060; U0003; 92523-GN; 97110-GP; 97530-GP; 99291-25; G0378

== ENCOUNTER → 2021-01-11 | Outpatient (CLI) | payer MEDICARE, OTHER ==
[~2021-01-11] MED LIST changes: +ALPR0.254 PO; +HYDR-2761 PO; +MELO15TA23 PO; +MORP15TA80 PO; +PREG300C PO
--- NOTE | 2021-01-11 13:02 | RAD ---
EXAM: PET/CT SCAN INDICATION: Restaging lymphoma COMPARISON: PET/CT 06/15/2020 PET/CT SCAN TECHNIQUE: Approximately 60 minutes after the intravenous administration of 14.45millicur ies of F-18 fluorodeoxyglucose (FDG), PET imaging of the body from the base of the skull through the mid thighs was performed. Reconstruction in all 3 planes were performed. The patient's serum glucose level at the time of the F-18 FDG administration was 120 mg/dL. A noncontrast CT scan was obtained fo r attenuation correction and anatomic localization purposes only and is not considered a diagnostic C T scan. PQRS compliance Statement One or more of the following individualized dose reduction techniques were utilized for this study: 1. Automated exposure control 2. Adjustment of the mA and/or kV according to patient size 3. Use of iterative reconstruction technique FINDINGS: Mediastinal SUV max: 3.36. Liver SUV max: 4.35. HEAD AND NECK: No suspicious FDG uptake or lymphadenopathy. CHEST: No suspicious FDG uptake or lymphadenopathy. There is mild atelectasis in the lung bases. No p leural effusion. The heart is normal size. There are coronary artery calcifications. ABDOMEN AND PELVIS: There is no suspicious FDG uptake or lymphadenopathy. There is physiologic radiot racer activity in the GI and tracts. The liver, gallbladder, pancreas, spleen, adrenal glands, kid neys, and ureters are normal. Urinary bladder is incompletely distended. Prostate gland is mildly enl arged. The aorta is normal in caliber. There is calcified aortic atherosclerosis. Stomach, small carmina l, and appendix are normal. Mild sigmoid diverticulosis. No ascites. MUSCULOSKELETAL: No abnormal FDG uptake. IMPRESSION: No evidence of FDG-avid malignancy. Electronically signed by: Tami Momin MD (01/11/2021 1:00 PM) [id number]
== END ==
LOC: PETSC 08:27
PROVIDERS: ATTEND Internal Medicine Hematology & Oncology
DX: C83.31 Diffuse large B-cell lymphoma, lymph nodes of head, face, and neck (principal); N40.0 Benign prostatic hyperplasia without lower urinary tract symptoms; K57.30 Diverticulosis of large intestine without perforation or abscess without bleeding
CPT/HCPCS: 78815; A9552

== ENCOUNTER → 2021-06-14 | Outpatient (CLI) | payer MEDICARE, OTHER ==
[~2021-06-14] MED LIST changes: +ONDA-85 PO; -ONDA8TAB17 PO
--- NOTE | 2021-06-14 18:54 | RAD ---
EXAM: PET/CT SCAN INDICATION: Non-Hodgkin's lymphoma COMPARISON: PET/CT 01/11/2021 PET/CT SCAN TECHNIQUE: Approximately 60 minutes after the intravenous administration of 11.0 millicur ies of F-18 fluorodeoxyglucose (FDG), PET imaging of the body from the base of the skull through the mid thighs was performed. Reconstruction in all 3 planes were performed. The patient's serum glucose level at the time of the F-18 FDG administration was 100 mg/dL. A noncontrast CT scan was obtained fo r attenuation correction and anatomic localization purposes only and is not considered a diagnostic C T scan. PQRS compliance Statement One or more of the following individualized dose reduction techniques were utilized for this study: 1. Automated exposure control 2. Adjustment of the mA and/or kV according to patient size 3. Use of iterative reconstruction technique FINDINGS: HEAD AND NECK: No abnormal FDG uptake. No lymphadenopathy. CHEST: No abnormal FDG uptake. No lymphadenopathy. Heart is prominent in size. There are coronary art jessika calcifications. Lungs are clear. No pleural effusion. ABDOMEN AND PELVIS: No abnormal FDG uptake. No lymphadenopathy. Liver, gallbladder, pancreas, spleen, adrenal glands are normal. Kidneys are unremarkable. Prostate gland is mildly enlarged. Stomach and bowel is unremarkable. Mild colonic diverticulosis. There is calcified aortoiliac atherosclerosis. MUSCULOSKELETAL: No abnormal FDG uptake or suspicious osseous lesion. IMPRESSION: No evidence of FDG-avid malignancy. Electronically signed by: Tami Momin MD (06/14/2021 6:52 PM) [id number]
== END ==
LOC: PETSC 08:58
PROVIDERS: ATTEND Internal Medicine Hematology & Oncology
DX: C83.31 Diffuse large B-cell lymphoma, lymph nodes of head, face, and neck (principal); K57.30 Diverticulosis of large intestine without perforation or abscess without bleeding; N40.0 Benign prostatic hyperplasia without lower urinary tract symptoms; I25.10 Atherosclerotic heart disease of native coronary artery without angina pectoris; I70.0 Atherosclerosis of aorta; I70.8 Atherosclerosis of other arteries
CPT/HCPCS: 78815; A9552